=== PATIENT | male | born 1960 | race Caucasian/White ===

== ENCOUNTER 2025-04-30 12:49 | Inpatient (IN) | payer OTHER, SELFPAY ==
[2025-04-30] VITALS (17 sets, daily range): BP systolic 105–214; BP diastolic 54–133; PULSE 71–104; RESP 10–19; TEMP 36.1–37.3; O2SAT 96–100; BMI 36.7; BMI 38.4
--- NOTE | 2025-04-30 13:10 | EKG12_ITS ---
Test Reason : CP Blood Pressure : */* mmHG Vent. Rate : 104 BPM Atrial Rate : 104 BPM P-R Int : 152 ms QRS Dur : 102 ms QT Int : 364 ms P-R-T Axes : 57 10 58 degrees QTcB Int : 478 ms Critical Test Result: STEMI Sinus tachycardia with frequent Premature ventricular complexes in a pattern of bigeminy ST elevation consider inferior injury or acute infarct ACUTE MD / STEMI Consider right ventricular involvement in acute inferior infarct Abnormal ECG When compared with ECG of 23-Mar-2012 15:11, Premature ventricular complexes are now Present ST elevation now present in Inferior leads ST now depressed in Anterolateral leads Confirmed by MICHAEL SAVAGE ([id number]), food editor TENZIN URBINA ([id number]) on 05/02/2025 1:57:34 PM Referred By: Michael Savage Confirmed By: MICHAEL SAVAGE
[2025-04-30 13:27] LABS: Hematocrit 46.0 % (40-54); Hemoglobin 15.7 g/dL (13.0-16.5); Immature Granulocytes Count 0.060 X10^3/uL (0.0-0.0); Mean Corp Hgb Conc 34.1 g/dL (32-36); Mean Corpuscular Volume 85.3 fL (80-94); Mean Platelet Vol. 9.5 fl (6.2-12.0); NRBC Flagged by Analyzer 0 % (0-5); Platelet Count 242 K/mm3 (150-450); RBC Distribution Width CV 13.9 % (11.6-14.6); RBC Distribution Width SD 42.8 fl (35.1-43.9); Red Blood Count 5.39 M/mm3 (4.6-6.2); White Blood Count 12.4 K/mm3 (4.4-11.0)
--- NOTE | 2025-04-30 13:28 | ED.VIS.CHEST ---
HPI History of Present Illness Chief Complaint: Chest Pain Detail of Chief Complaint: Heartburn/indigestion and shortness of breath Informant: patient Onset/Context/Timing Onset: - (2 to 3 weeks ago with exertion and last evening at rest) Activity at onset: sudden Timing: Continuous Quality: Positive for Burning and Indigestion Location: Substernal Current Severity: Mild Maximum Severity: Moderate Worsened By: Exertion (Worse walking up the incline) Relieved By: Nothing Associated Symptoms: Positive for Dyspnea and Lightheadedness; Negative for Nausea, Vomiting, Diaphoresis, Cough, Fever, Acid Reflux or Palpitations Narrative Narrative: Patient is a 64-year-old male with no past medical history on no medication who presents because of indigestion shortness of breath and pain that radiate through to his back. 2 to 3 weeks ago while moving logs he had heartburn indigestion substernal with difficulty breathing. Symptoms resolved after he stopped. Last evening he had basal crackers. He believes this is the cause of his indigestion. Apparently he is having difficulty with breathing and had difficulty sleeping last evening. He still complain of retrosternal indigestion radiating through to his back. Does not radiate anywhere else. He denies history of hiatal hernia, reflux or peptic ulcer disease. [place] black or maroon-colored stool. He has no history of VTE or any risk factors. He denies headache, visual, ocular auditory symptoms. Recent Illness/Hospitalization: No CVD Risk Factors: Negative for Hypertension, Diabetes, Hypercholesterolemia, Family History 1' </=55 or Smoking PE Risk Factors: Negative for Recent Travel/Surgery, Recent Immobilization, Prior DVT or PE, Cancer or OCP + Smoking + >/=35 TAD Risk Factors: Negative for Marfan's Syndrome, Hypertension or Family History PFSH PFSH Medical History no medical history no medical history Home Medications ?Medication ?Instructions ?Recorded ?Last Taken ?Type NK 04/30/25 Unknown History Allergy/AdvReac Type Severity Reaction Status Date / Time No Known Allergies Allergy Verified 04/30/25 12:51 Family History no significant family his Surgical History no surgical history Social History (Updated 04/30/25 @ 13:[address] David Keene MD) household members: spouse Smoking Status: Never smoker ROS ROS ED Constitutional Constitutional ED: Denies chills, fever(s), subjective or sweats Eyes Eyes: Reports none Cardiovascular Cardiovascular: Reports as per HPI and chest pain; Denies orthopnea or paroxysmal nocturnal dyspnea Respiratory/Chest Respiratory/Chest: Reports dyspnea on exertion; Denies cough, dyspnea, orthopnea or paroxysmal nocturnal dyspnea Gastrointestinal Gastrointestinal: Denies abdominal pain, melena, nausea or vomiting Musculoskeletal Musculoskeletal: Reports back pain; Denies arthralgias or myalgias Integumentary Denies rash Neurologic Neurologic: Denies headache(s) Hematologic/Lymphatic Hematologic/Lymphatic: Denies easy bleeding or easy bruising Allergic/Immunologic Allergic/Immunologic ED: Denies mouth swelling or tongue swelling EXAM Physical Exam Const Vital Signs: 04/30/25 12:50 04/30/25 13:21 Temperature 97 F L Temperature Source Temporal Pulse Rate 88 Respiratory Rate 16 Blood Pressure 214/107 H Blood Pressure Mean 142 Pulse Ox 100 Oxygen Delivery Method Room Air Room Air Positive well nourished and well developed Constitutional Narrative: Blood pressure is elevated 214/107. BMI is elevated at 36.7. General Appearance ED: well developed HEENT Reports moist mucous membranes normocephalic and atraumatic Eyes PERRL and EOMs intact bilaterally General Eye ED: Negative for pale conjunctiva or scleral icterus Neck no lymphadenopathy, supple and no JVD Chest Wall inspection of chest normal and palpation of chest normal Resp normal respiratory effort and clear to auscultation bilaterally Cardio regular rate, S1 normal heart sound, S2 normal heart sound and no murmurs; Negative for regular rhythm Peripheral Pulses: pulses 2+ throughout GI normal to inspection, nondistended, normoactive bowel sounds, soft to palpation, non-tender and non-distended; Negative for hepatosplenomegaly or no masses Back/Spine no CVA tenderness Extremity normal to inspection General Extremety ED: Negative for edema or pulses abnormal General Extremity: Negative for edema or pulses abnormal Neuro oriented x3 and CN's II-XII intact bilaterally Sensorium / Orientation: awake and alert Psych mental status grossly normal Skin no rashes or lesions noted and no wounds MDM MDM MDM Narrative Medical decision making narrative: Twelve-lead EKG reveals bigeminy. He has ST elevation in lead III and aVF and some mild depression in V2 and V3. This is unchanged from 2012. Concerned this may represent a STEMI. EKG was sent to Dr. Elliott. Since he is still having symptoms he was taken to the [facility]. Concerned he may have had an ID a couple of weeks ago. He states this is not a STEMI. Patient received aspirin in the emergency department. He was not given Brilinta or heparin. Dr. Russell said he can give him heparin or Brilinta If Needed Pending images. History & Record Review Discussion w/independent historian: Significant other Additional record(s) reviewed:: No prior records EKG Initial EKG: Attestation: I personally reviewed and interpreted this EKG as follows: Interpretation: Sinus Rhythm (ST elevation 3 aVF with depression in V2 and V3. There is a Q wave in aVF. He has a bundle branch parents noted on the premature beats.) Management Discussion w/another healthcare provider: Hospitalist (Dr. Anaid Zavala was informed that cardiology has taken patient in the [facility].) and Applied Researcher (Dr. Elliott) Critical Care Time Critical Care Time: Yes Critical care time (excluding procedures): 30-74 minutes (10), Including time spent: (History, physical, documentation, interpretation EKG, discussion with hospitalist and forging press operator), Discussing w/Patient &/or Family/Welding Machine Feeder, Discussing w/Consultants and Arranging Admission or Transfer Discharge Plan Triage Chief Complaint: Chest Pain ED Provider: David Keene Dx/Rx/DC Orders Clinical Impression: ACS (acute coronary syndrome), Hypertensive urgency Prescriptions: No Action NK Primary Care Provider: Care Physician,No Primary Referrals: Care Physician,No Primary [Primary Care Provider] - Print Language: Yi Disposition Disposition: Acute Care Hospital [facility]
[2025-04-30 13:36] LABS: Prothrombin Time (Protime)PT. 15.1 SECONDS (11.7-14.9)
[2025-04-30 13:37] LABS: Partial Thromboplast Time 30.2 Seconds (24.1-36.2)
--- NOTE | 2025-04-30 13:46 | ECHOL_ITS ---
Reason For Study Reason For Study: CHEST PAIN Procedure This was a limited 2D transthoracic echocardiogram. Exam performed in clinical genetics laboratory chief. Left Ventricle Normal left ventricle. The estimated ejection fraction is 65???70 %. Right Ventricle Normal right ventricle. Atria Normal left atrium. Mitral Valve The mitral valve is structurally normal. No prolapse or stenosis seen. MMode/2D Measurements & Calculations LVAd ap4: 29.4 cm2 SV(MOD-sp4): 61.8 ml SV(sp4-el): 64.1 ml LVLd ap4: 8.2 cm SI(MOD-sp4): 26.7 ml/m2 EDV(MOD-sp4): 88.5 ml EDV(sp4-el): 89.4 ml LVAs ap4: 13.2 cm2 LVLs ap4: 5.8 cm ESV(MOD-sp4): 26.7 ml ESV(sp4-el): 25.3 ml EF(MOD-sp4): 69.9 % EF(sp4-el): 71.7 % ECHO/Echo, Limited Study Interpretation Summary The estimated ejection fraction is 65???70 %. Limited transthoracic echocardiogram with inferior hypokinesia. No prior echocardiogram to compare. Ordering Physician: Samir Hanna Referring Physician: Hilario Elliott Performed By: Ofelia Page RCS
[2025-04-30] MEDS: Heparin Injection (Vial) 5,000 UNIT/ML VIAL 5000 UNIT IV (13:53)
[2025-04-30 14:10] LABS: Anion Gap 14 (5-15); BUN 12 mg/dL (4-19); BUN/Creat Ratio 13.9 RATIO (10-20); Calcium,Total 9.5 mg/dL (7.6-11.0); Carbon Dioxide 22.3 mmol/L (21.0-32.0); Chloride 104 mmol/L (98-108); Estimated Creatinine Clearance 108.25 ml/min (50-250); Glucose 171 mg/dL (70-99); Potassium 3.6 mmol/L (3.3-5.1)
[2025-04-30 14:15] LABS: Troponin T High Sensitivity 189 ng/L (<=22)
[2025-04-30 15:04] LABS: ACT Activated Clotting Time 360 sec (74-137)
[2025-04-30 15:04] LABS: ACT Activated Clotting Time 205 sec (74-137)
--- NOTE | 2025-04-30 15:25 | PCI.CARDCATH ---
PCI Cardiac Cath Report PCI Report: PCI cardiac cath report Patient with acute coronary syndrome with change in the EKG in the inferior initially does not show ST elevation subsequently there is some ST elevation With ventricular bigeminy. 1. Moderate sedation 2. Selective left coronary angiography 3. Selective right coronary angiography 4. Successful PCI of the culprit lesion, occluded proximal RCA with thrombectomy, followed by primary stenting using 4.5 x 30 mm drug-eluting stent to the proximal RCA., Up to 14 KRISTY. And improvement from FER 0 to FER-3 flow. 5. Selective right common femoral artery angiography and placement of Perclose 2 close right common femoral artery arteriotomy site 6. Placement of TR band to close the right radial artery arteriotomy site. Preprocedure diagnosis; 64-year-old patient seen at the ED at [facility] complaining of symptoms of ongoing epigastric and lower chest pain Patient thought this is acid reflux and came to the ED Where an EKG was abnormal with change in the inferior lead with already Q wave noted in the inferior lead with ventricular bigeminy on the EKG and right bundle branch block. He continued to have discomfort in the lower chest. His blood pressure was significantly elevated in the ED. As per history from the the patient was not following with any medical providers. She does not have any prior cardiac history. Consent; Emergency consent was obtained to perform emergency cardiac catheterization with possible PCI of the culprit lesion likely in this case will be proximal RCA. Diagnostic equipment and interventional equipment in the [facility]; 1. 6 Macedonian sheath placed in the right common femoral artery 2. 6 Macedonian sheath placed in the right radial artery. 3. 5 Macedonian JL 3.5 diagnostic catheter 4. 6 Macedonian JR4 guide catheter 5. GuideLiner 6 Macedonian 6. Claude thrombectomy catheter 7. 0.014 180 cm run-through extra floppy straight guide wire 8. 4.5 x 30 mm drug-eluting stent Stevie frontier XIAO Medication used in the Cad [facility]; 1. Patient was given Brilinta 180 mg 2. Patient was given aspirin 324 in the ED 3. Heparin With ACT level acceptable above 300 4. Integrilin 2 boluses with plan of Integrilin infusion Initial blood pressure was significant elevated After sedation and successful PCI the blood pressure was low requiring IV fluid Maintain a blood pressure of 127 mmHg/systolic blood pressure 5. Intracoronary/IC nitroglycerin 100 mcg. 6. IV fluid normal saline. Procedure in detail. Patient brought as an emergency from the ED Right radial artery and right groin prepped and draped in the usual sterile fashion Initially proceed from the right radial artery and a 6 Macedonian sheath placed in the right radial artery. However it was difficult to maintain the guide catheter which is a 6 Macedonian JR4 guide therefore we proceeded with access from the right common femoral artery And we were able to engage the RCA. We proceeded with the diagnostic catheter using 5 Macedonian JL 3 5 advancing Sherwood multiple views of left calcium obtained Following this identified the culprit is occluded proximal RCA at there was collateral from the left coronary artery to the distal RCA which is a large vessel Therefore we will proceed with the guide catheter from the right coronary ostium Which clearly demonstrated occluded proximal RCA. Patient was very critical with a large proximal RCA occlusion and a large thrombus burden. Therefore we will proceed with thrombectomy catheter and the small thrombus was retrieved Then we will proceed with a guide liner 6 Macedonian guide liner Will proceed with a run-through wire crossed the lesion in the proximal RCA Patient was very unstable and a long pause with sinus bradycardia was noted on the process improvement specialist Therefore he was given atropine. And then we will proceed with primary stenting using 4.5 x 30 mm drug-eluting stent Stevie frontier. And achieve excellent result with reduction of stenosis from 100-0 and FER 0 to FER-3 flow patient stable His blood pressure was low. GuideLiner was removed. Patient was given boluses of IV fluid and maintained on IV fluid normal saline. Blood pressure started to improve he does not have any active chest pain and his heart rhythm initially showed sinus bradycardia and improved subsequently. Coronary angiography; 1. Left main is normal angiographically bifurcating into LAD and left circumflex 2. Mid LAD had significant atherosclerosis of around 70%. Mid Also involving ostium of a large diagonal branch of around 90%. LAD does not reach all the way to the apex 2. Diagonal branch ostial 90% 3. Left circumflex proximally had nonobstructive screws of around 40%. 5. RCA occluded proximally with successful PCI as described. Conclusion recommendations; 64-year-old patient with ongoing symptoms of chest pain and lower epigastric discomfort which ongoing for last couple of days noted mainly on exertion and at rest. Brought into ED where a diagnosis of inferior MO was noted he had initially a Q wave noted in the inferior lead with ST-T change in ventricular bigeminy Subsequently ST elevation was demonstrated in the inferior lead. Patient underwent emergency cardiac catheterization which provided diagnostic for the left coronary system showing mid LAD lesion. With well collateralization from the left coronary system to the RCA distal RCA Therefore we proceed with interventional plan to the RCA. Successful PCI of the proximal RCA using drug-eluting stent 4.5 x 30 mm Pearl frontier. Patient was given heparin aspirin Brilinta and Integrilin in the Cad [facility] in addition to blood pressure control. Recommendations; 1. To continue on dual antiplatelet therapy with Brilinta 90 mg twice daily in addition to low-dose aspirin This will be for 1 year and low-dose aspirin indefinitely 2. High-dose statin atorvastatin 80 mg. 3. Echocardiogram to evaluate and assess LV function 4. Possible BRISA inhibitor low-dose as tolerated by the blood pressure. 5. Echocardiogram to assess LV function 6. Patient will be scheduled for cardiac rehab post PCI. Elective PCI of the LAD/mid LAD. Selective right common femoral artery endograft obtained and the Perclose used to close the right common femoral artery arteriotomy site And a TR band used to close the right radial artery arteriotomy site There is no immediate complication in the Cad Drafter Total amount of blood loss is 10 mL 7. Patient to follow-up with [facility] cardiology team. Hilario Elliott MD,[facility] negative assembler
--- NOTE | 2025-04-30 15:30 | EKG12_ITS ---
Test Reason : AM EKG Blood Pressure : */* mmHG Vent. Rate : 73 BPM Atrial Rate : 73 BPM P-R Int : 148 ms QRS Dur : 94 ms QT Int : 436 ms P-R-T Axes : 43 -35 42 degrees QTcB Int : 480 ms Normal sinus rhythm Left axis deviation Minimal voltage criteria for LVH, may be normal variant ( R in aVL ) Inferior infarct , age undetermined Abnormal ECG When compared with ECG of 30-Apr-2025 13:03, MANUAL COMPARISON REQUIRED DATA IS UNCONFIRMED Confirmed by MICHAEL SAVAGE ([id number]), food expeditor CAT SALGADO ([id number]) on 05/01/2025 1:10:21 PM Referred By: Michael Savage Confirmed By: MICHAEL SAVAGE
--- NOTE | 2025-04-30 15:34 | CM.ED ---
Social Work Reason for visit: STEMI alert SW met with patients while patient was receiving care. was tearful, emotional support provided. No further needs identified at this time. Belinda Morejon, TRANSPORTER RADIOLOGY, LAB TECHNICIAN
--- NOTE | 2025-04-30 15:45 | CHAPLAIN ---
Type of Pastoral Visit ___ Initial Visit ___ Follow-up Visit ___ On-call Visit ___ General Patient Visit ___ Spiritual Assessment ___ Family Conference ___ Bereavement _x__ Rapid Response ___ Code Blue ___ Other (describe below) Pastoral Care Referral From ___ Patient ___ Family ___ Nurse ___ Physician ___ Preassembler Printed Circuit Board ___ Ophthalmic Medical Technologist _x__ Other (describe below) Sacrament/Intervention _x__ Active listening ___ Anointing ___ Moravian ___ Bereavement ___ Communion _x__ Esther exploration ___ _x__ Life review _x__ Prayer ___ Reconciliation ___ Sacrament of Sick _x__ Supportive presence ___ Wedding ___ Other (describe below) Pastoral Comments responded to a stemi alert for this patient in the ED; patient is being evaluated for a heart cath; spouse is in the room and is offered support and assistance to the waiting room of the Insurance Appraiser; greeted patient when it was a moment before transfer; offered to be in prayer and support; sat with the spouse in waiting area and offered a prayer at permission; spouse and pt are active anglican members and acknowledge the presence and intervention of the Lord; spouse talks about pt's reluctance to see a doctor and that this will obviously change what the future holds; esther affirmation and physical presence given; gave the spouse time to make phone calls; returned later to the waiting area and found that family members and friends had gathered; updates given on procedures; conversation among the family to give support; offered to follow up again with the patient tomorrow as he is being admitted after procedure
[2025-04-30] MEDS: 0.9% Normal Saline (1000mL) 1,000 ML 150 ML IV (16:01)
--- NOTE | 2025-04-30 16:21 | ECHOD_ITS ---
Reason For Study Reason For Study: CHEST PAIN Procedure This was a 2D Doppler, Color Flow transthoracic echocardiogram. Myocardial strain analysis was performed in this exam to aid in the assessment of cardiac function. Exam performed portable in ICU/CCU. Left Ventricle Normal LV size. The estimated ejection fraction is 60 %. Stage 1 diastolic dysfunction. Mild hypokensis of the inferior wall. Right Ventricle Normal RV size. Normal systolic function. Atria Normal left atrium. Normal right atrium. Mitral Valve The mitral valve is structurally normal. No prolapse or stenosis seen. Mild (1+) mitral valve insufficiency. Tricuspid Valve Normal tricuspid valve. Trivial tricuspid valve insufficiency. Pulmonary artery systolic pressure is 20 mmHg. Aortic Valve Trisinus/trileaflet aortic valve. Mild focal aortic valve thickening. There is no aortic stenosis. Pulmonic Valve Normal pulmonic valve. Trivial pulmonic valve insufficiency. Great Vessels Normal sized aortic root. Pericardium/Pleural No pericardial effusion. MMode/2D Measurements & Calculations LVIDd: 4.8 cm IVSd: 1.1 cm LVOT diam: 2.2 cm LVIDs: 3.3 cm LVPWd: 1.0 cm LVOT area: 3.8 cm2 RVDd: 3.7 cm FS: 32.2 % asc Aorta Diam: 3.6 cm LAV(MOD-bp): 48.0 ml LVAd ap4: 27.7 cm2 LAV(MOD-bp) Indexed: 20.8 ml/m2 LVLd ap4: 8.2 cm LAV(MOD-sp2): 59.1 ml EDV(MOD-sp4): 76.3 ml LAV(MOD-sp4): 40.2 ml EDV(sp4-el): 79.3 ml LVAs ap4: 14.6 cm2 LVLs ap4: 6.6 cm ESV(MOD-sp4): 27.1 ml ESV(sp4-el): 27.6 ml EF(MOD-sp4): 64.5 % EF(sp4-el): 65.2 % LVAd ap2: 23.1 cm2 SV(MOD-sp4): 49.2 ml SV(MOD-sp2): 30.5 ml LVLd ap2: 8.2 cm SI(MOD-sp4): 21.3 ml/m2 SI(MOD-sp2): 13.2 ml/m2 EDV(MOD-sp2): 55.5 ml EDV(sp2-el): 55.1 ml LVAs ap2: 14.3 cm2 LVLs ap2: 7.2 cm ESV(MOD-sp2): 25.0 ml ESV(sp2-el): 24.3 ml EF(MOD-sp2): 55.0 % SV(sp4-el): 51.7 ml Ao sinus diam: 3.[address] Junction: 3.1 cm LA dimension(2D): 4.2 cm LA A4 area: 15.8 cm2 RA A4 area: 12.6 cm2 TAPSE: 1.7 cm Time Measurements MV dec time: 0.19 sec Doppler Measurements & Calculations MV E max virgilio: 89.5 cm/sec Lat Peak E' Virgilio: 12.3 cm/sec Med Peak E' Virgilio: 10.4 cm/sec MV A max virgilio: 79.3 cm/sec E/E' lat: 7.3 E/E' med: 8.6 MV E/A: 1.1 MV dec slope: 474.8 cm/sec2 Ao V2 max: 158.9 cm/sec LV V1 max: 130.0 cm/sec Ao max P.1 mmHg LV V1 max P.8 mmHg Ao V2 mean: 107.4 cm/sec LV V1 mean P.8 mmHg Ao mean P.4 mmHg LV V1 mean: 107.5 cm/sec Ao V2 VTI: 30.7 cm LV V1 VTI: 24.2 cm AV (velocity ratio): 0.79 LUIZ(I,D): 3.0 cm2 LUIZ(V,D): 3.1 cm2 SV(LVOT): 93.1 ml PA V2 max: 136.0 cm/sec TR max virgilio: 206.8 cm/sec TR max P.1 mmHg ECHO/Echo Complete Interpretation Summary The estimated ejection fraction is 60 %. Mild hypokensis of the inferior wall. Stage 1 diastolic dysfunction. Mild (1+) mitral valve insufficiency. No previous echo to compare. Ordering Physician: Anaid Zavala Referring Physician: Hilario Elliott Performed By: Shandra Cosme RDCS
--- NOTE | 2025-04-30 16:21 | PCM.HP.STD ---
HPI - General General Date of Admission: 04/30/25 Date of Service: 04/30/25 Chief Complaint: Indigestion HPI Narrative ALBERT NOLASCO, is a 64-year-old male with no known past medical history presented [facility] ED 04/30/2025 due to heartburn/indigestion and shortness of breath as well as pain rating to his back. He initially had this 2 to 3 weeks ago while he was moving logs and noted the heartburn and indigestion and substernal area with difficulty breathing but symptoms resolved after he stopped. Last night was having difficulty breathing and difficulty sleeping and complained of the retrosternal indigestion radiating to his back ultimately prompting patient to come to the ED. Initially patient was STEMI alert however cardiology evaluated did not think that this was an acute STEMI though patient did have EKG changes. Patient also in bigeminy and was taken to the Field Artillery Crewmember given all of the above and his continued symptoms. On presentation temp 97, heart rate 88 and blood pressure initially 214/107, respiratory rate 16 pulse ox 100% on room air. CBC with a white blood cell count of 12 and BMP only notable for glucose of 171, initial troponin 189. Patient taken straight to the Field Artillery Crewmember. Patient evaluated post Field Artillery Crewmember at bedside. Patient reports history as above, said he also noticed occasional dry cough/clearing throat over the past couple of weeks but does not feel the need to do that now, presently not having of the indigestion or chest pain, just feels somewhat uncomfortable overall due to laying in the bed, has not been able to get up yet, not presently feeling shortness of breath [facility] Medical History (Updated 04/30/25 @ 17:09 by Mile Thompson) Atherosclerotic heart disease of [place] coronary artery without angina pectoris Ureteral stent present Medical History no medical history Home Medications ?Medication ?Instructions ?Recorded ?Last Taken ?Type NK 04/30/25 Unknown History Allergy/AdvReac Type Severity Reaction Status Date / Time No Known Allergies Allergy Verified 04/30/25 12:51 Family History no significant family his Surgical History (Updated 04/30/25 @ 17:08 by Mile Thompson) History of appendectomy Stented coronary artery (04/30/25) Surgical History no surgical history Social History (Updated 04/30/25 @ 13:[address] David Keene MD) household members: spouse Smoking Status: Never smoker ROS ROS Narrative General: Denies fever/chills HENT: denies stuffy nose, denies sore throat EYES: Denies changes in vision Resp: Had been having a little bit of a cough/clearing throat, not at this time Cardiac: Denies chest pain GI: Denies abdominal pain, denies changes in bowel, denies nausea/vomiting : Denies changes in urination Extremity: Denies swelling MSK: Denies weakness, does feels a little bit uncomfortable overall right now Neuro: Denies any numbness/tingling, does have some tremors in his hands which are usually there but worse right now than usual Heme: Denies any bleeding or bruising Skin: Denies rashes Psychiatric: No complaints voiced Vital Signs Vital Signs Vital Signs: 04/30/25 12:50 04/30/25 13:21 04/30/25 13:49 Temperature 97 F L Temperature Source Temporal Pulse Rate 88 Respiratory Rate 16 Respiratory Effort Normal Non-Labored Blood Pressure 214/107 H Blood Pressure Mean 142 Pulse Ox 100 Oxygen Delivery Method Room Air Room Air 04/30/25 13:50 Temperature 97 F L Temperature Source Pulse Rate 104 H Respiratory Rate 15 Respiratory Effort Blood Pressure 155/133 H Blood Pressure Mean 140 Pulse Ox 97 Oxygen Delivery Method Weight Weight: 118 kg Body Mass Index (BMI) 38.4 Physical Exam Narrative General: Alert, oriented HEENT: Atraumatic, normocephalic Eyes: Anicteric, normal conjunctiva, extraocular movements grossly intact Neck: Supple Respiratory: Clear to auscultation bilaterally, normal respiratory effort Cardiovascular: Regular rate and rhythm GI: Soft, nontender, nondistended Extremities: No edema Musculoskeletal: Moving all extremities Neuro: No overt focal neurological deficits, does have some tremor and some outstretched hands Skin: No rashes appreciated Psych: Cooperative Results Lab / Micro Data 04/30/25 13:10 04/30/25 13:10 Labs: Laboratory Results - last 24 hr 04/30/25 13:04: Activated Clotting Time 205 H 04/30/25 13:10: WBC 12.4 H, RBC 5.39, Hgb 15.7, Hct 46.0, MCV 85.3, MCH 29.1, MCHC 34.1, RDW Std Deviation 42.8, RDW Coeff of Sonia 13.9, Plt Count 242, MPV 9.5, Immature Gran % (Auto) 0.500, Neut % (Auto) 64.3, Lymph % (Auto) 26.6, [place] % (Auto) 7.4, Eos % (Auto) 0.6, Baso % (Auto) 0.6, Absolute Neuts (auto) 8.0 H, Absolute Lymphs (auto) 3.31, Nucleated RBC % 0, PT 15.1 H, INR 1.2, APTT 30.2, Sodium 140, Potassium 3.6, Chloride 104, Carbon Dioxide 22.3, Anion Gap 14, BUN 12, Creatinine 0.88, Estim Creat Clear Calc 108.25, Est GFR (MDRD) Non-Af 96, BUN/Creatinine Ratio 13.9, Glucose 171 H, Calcium 9.5, Troponin T High Sens 189 H* 04/30/25 13:48: Activated Clotting Time 360 H Assessment & Plan Assessment/Plan (1) ACS (acute coronary syndrome): (2) Stented coronary artery: PLAN: Plan # NSTEMI type I - EKG with changes initial troponin of 189 that is up trended to 1482 - Taken emergently to Field Artillery Crewmember and received stent to RCA -Patient now pain-free - Aspirin, statin, Brilinta - Cardiology following - Echo limited at bedside in the Field Artillery Crewmember with EF 65-70 and inferior hypokinesis, formal echo ordered - Will start BRISA - Lipid panel and A1c in the a.m. #DVT ppx: SCDs Anaid Zavala MD Charges/Coding Visit Charges Inpatient E&M: 90735 Init Hosp L1
[2025-04-30 18:19] LABS: Troponin T High Sens 2 HR 1277 ng/L (<=22)
[2025-04-30] MEDS: EPTIFIBATIDE 75 MG/100 ML VIAL 19 MG CONT INF (20:32)
[2025-04-30 20:39] LABS: Troponin T High Sens 4 HR 1482 ng/L (<=22)
[2025-05-01] VITALS (17 sets, daily range): BP systolic 93–159; BP diastolic 56–107; PULSE 68–91; RESP 14–22; TEMP 36.6–37.5; O2SAT 95–99; BMI 38.5
[2025-05-01] MEDS: EPTIFIBATIDE 75 MG/100 ML VIAL 19 MG CONT INF (01:29)
[2025-05-01 04:23] LABS: Hematocrit 38.5 % (40-54); Hemoglobin 13.0 g/dL (13.0-16.5); Mean Corp Hgb Conc 33.8 g/dL (32-36); Mean Corpuscular Volume 86.1 fL (80-94); Mean Platelet Vol. 9.7 fl (6.2-12.0); Platelet Count 224 K/mm3 (150-450); RBC Distribution Width CV 14.1 % (11.6-14.6); RBC Distribution Width SD 44.4 fl (35.1-43.9); Red Blood Count 4.47 M/mm3 (4.6-6.2); White Blood Count 14.6 K/mm3 (4.4-11.0)
[2025-05-01 04:25] LABS: Scan Indicated on CBC? Y/N NO
[2025-05-01 04:51] LABS: AST(SGOT) 73 U/L (<=37); Alanine Aminotransfer ALT/SGPT 24 U/L (<=46); Albumin, Serum 3.9 g/dL (3.4-4.8); Alkaline Phosphatase 64 U/L (40-129); Anion Gap 10 (5-15); BUN 11 mg/dL (4-19); BUN/Creat Ratio 12.8 RATIO (10-20); Calcium,Total 8.4 mg/dL (7.6-11.0); Carbon Dioxide 21.4 mmol/L (21.0-32.0); Chloride 109 mmol/L (98-108); Estimated Creatinine Clearance 108.73 ml/min (50-250); Globulin 2.4 g/dL (2.2-4.2); Glucose 116 mg/dL (70-99); Potassium 3.6 mmol/L (3.3-5.1)
[2025-05-01 06:59] LABS: Cholesterol 143 mg/dL (<=200); Low Density Lipoprotein Calc. 73 mg/dL; Triglycerides 98 mg/dL; Very Low Density Lipoprotein 20 mg/dL (5-40); cholesterol:hdl ratio screen 2.81
--- NOTE | 2025-05-01 07:14 | PN.HOSP_ITS ---
Reason for Visit Chief Complaint: Indigestion Subjective Subjective Patient was admitted yesterday after presenting to the emergency department with heartburn and indigestion with concomitant shortness of breath that radiated to his back. STEMI alert was initially called however cardiology did not think it was a true STEMI but he was taken to the Matching Machine Operator due to her ongoing symptoms. Initial troponin was noted to be 189. XIAO to proximal RCA x 1 was performed. This morning the patient reports that he is feeling overall quite well. Denies any complaints at this time. No chest pain through the night. No arrhythmia. We did discuss that as long as he remains stable over the next 24 hours probable discharge home tomorrow morning. We discussed the importance of ongoing dual antiplatelet therapy until cardiology tells him to discontinue, statin therapy, and we have added medication for blood pressure/goal-directed therapy. Objective Data Objective Data Vital Signs: Vital Signs Temp Pulse Resp BP Pulse Ox O2 Del Method 98.7 F 70 20 H 140/77 H 96 Room Air 05/01/25 04:00 05/01/25 06:00 05/01/25 06:00 05/01/25 06:00 05/01/25 06:00 05/01/25 06:00 Oxygen Delivery Method Room Air Weight: 117.9 kg Body Mass Index (BMI) 38.5 Intake & Output: Intake and Output for Last 24 Hours 04/29/25 04/30/25 05/01/25 23:59 23:59 23:59 Intake Total 167.5 / 167.5 978.53 / 978.53 Output Total 0 / 0 Balance 167.5 / 167.5 978.53 / 978.53 Lab / Micro Data 05/01/25 04:13 05/01/25 04:13 Labs: Laboratory Results - last 24 hr 04/30/25 13:04: Activated Clotting Time 205 H 04/30/25 13:10: WBC 12.4 H, RBC 5.39, Hgb 15.7, Hct 46.0, MCV 85.3, MCH 29.1, MCHC 34.1, RDW Std Deviation 42.8, RDW Coeff of Sonia 13.9, Plt Count 242, MPV 9.5, Immature Gran % (Auto) 0.500, Neut % (Auto) 64.3, Lymph % (Auto) 26.6, [place] % (Auto) 7.4, Eos % (Auto) 0.6, Baso % (Auto) 0.6, Absolute Neuts (auto) 8.0 H, Absolute Lymphs (auto) 3.31, Nucleated RBC % 0, PT 15.1 H, INR 1.2, APTT 30.2, Sodium 140, Potassium 3.6, Chloride 104, Carbon Dioxide 22.3, Anion Gap 14, BUN 12, Creatinine 0.88, Estim Creat Clear Calc 108.25, Est GFR (MDRD) Non-Af 96, BUN/Creatinine Ratio 13.9, Glucose 171 H, Calcium 9.5, Troponin T High Sens 189 H* 04/30/25 13:48: Activated Clotting Time 360 H 04/30/25 17:40: Troponin T Hi Sens 2 Hr 1277 H* 04/30/25 19:50: Troponin T Hi Sens 4Hr 1482 H* 05/01/25 04:13: WBC 14.6 H, RBC 4.47 L, Hgb 13.0, Hct 38.5 L, MCV 86.1, MCH 29.1, MCHC 33.8, RDW Std Deviation 44.4 H, RDW Coeff of Sonia 14.1, Plt Count 224, MPV 9.7, Sodium 141, Potassium 3.6, Chloride 109 H, Carbon Dioxide 21.4, Anion Gap 10, BUN 11, Creatinine 0.87, Estim Creat Clear Calc 108.73, Est GFR (MDRD) Non-Af 96, BUN/Creatinine Ratio 12.8, Glucose 116 H, Hemoglobin A1c 6.2 H, Calcium 8.4, Total Bilirubin 0.76, AST 73 H, ALT 24, Alkaline Phosphatase 64, Total Protein 6.3, Albumin 3.9, Globulin 2.4, Albumin/Globulin Ratio 1.6, Triglycerides 98, Cholesterol 143, LDL Cholesterol, Calc 73, VLDL Cholesterol 20, HDL Cholesterol 51, Cholesterol/HDL Ratio 2.81, TSH 2.510 Radiography Diagnostic Testing: Radiology Impression Echocardiogram 04/30/25 13:46 Interpretation Summary The estimated ejection fraction is 65???70 %. Limited transthoracic echocardiogram with inferior hypokinesia. No prior echocardiogram to compare. Ordering Physician: Samir Hanna Referring Physician: Hilario Elliott Performed By: Ofelia Page RCS Physical Exam Const alert, oriented x3 and well nourished; Negative for average body habitus Constitutional Narrative: Obese, upper middle-aged, white male, sitting up in a chair at the bedside, eating breakfast and watching television, appears comfortable, nontoxic, cooperative HEENT head/scalp atraumatic and moist oral mucous membranes HEENT Narrative: Mallampati 3 Head and Scalp: normocephalic Resp normal respiratory effort, no retractions, no use of accessory muscles and clear to auscultation bilaterally Auscultation: Negative for rales, rhonchi or wheezes Cardio regular rate, regular rhythm, S1 normal heart sound, S2 normal heart sound, no murmurs, no rub, no gallops and no clicks GI normal to inspection, nondistended, normoactive bowel sounds, soft to palpation and non-tender Extremity no clubbing, cyanosis or edema Extremity Narrative: 2+ pedal and radial pulses, post cath site is clean dry and intact Neuro oriented x3, moves all extremities and no focal motor deficits Speech: speech normal Psych affect normal Psych Narrative: Extremely pleasant, grateful for care, interacts appropriately Assessment & Plan Assessment/Plan (1) Atherosclerotic heart disease of [place] coronary artery without angina pectoris: (2) ACS (acute coronary syndrome): (3) Stented coronary artery: PLAN: Plan ACS/NSTEMI type I - EKG changes with the elevated troponin - Emergent cath done on 04/30/2025 with a XIAO to proximal RCA - Patient also noted to have disease in the LAD and elective PCI to the LAD/mid LAD has been recommended to be performed as an outpatient after follow-up - Continue dual antiplatelet therapy for 12 months--> importance of dosing discussed with patient this morning - Continue statin - Continue BRISA inhibitor - Add Coreg 3.125 mg twice daily - Echocardiogram performed and shows an EF of 65 to 70% - No signs of reperfusion arrhythmia and anticipate discharge home in next 24 hours - Cardiology is following-appreciate input - Will make PCU status Essential hypertension - Patient's blood pressure has consistently been elevated to the stage I to stage II hypertensive ranges - Continue lisinopril 10 mg daily - Add carvedilol 3.125 mg twice daily - Overall goal blood pressure should be less than 130/80 Leukocytosis - Suspect reactive related to acute event - Repeat CBC in a.m. Insulin resistance - A1c is 6.2 - Recommend weight loss - No need for current therapy Hyperlipidemia - mild with an LDL of 73 - Continue high intensity of statin for plate atrophic effects as well as lipid control Obesity - BMI 38.4 - Recommend weight loss - Complicates treatment, prognosis, outcomes - Patient may benefit from outpatient polysomnography DVT prophylaxis - continue enoxaparin CODE STATUS Full code was verified with patient this morning and order was placed Charges/Coding Visit Charges Inpatient E&M: 30626 Subs Hosp L2
--- NOTE | 2025-05-01 07:49 | CRPHASE1 ---
Patient Communication Patient Information PHII Cardiac Rehab Discussed with Patient:: Yes Guide to Cardiac Rehab Given to Patient:: Yes Cardiac Rehab Facility Choice List Given to Patient:: Yes Communication to Cardiac Rehab Choice Program [facility] CR PHII:: Communication Given to CR Fuel Cell Assembler:: Hilario Elliott Phase II Cardiac Rehab:: Yes Sessions:: 36 sessions - 3 days/wk, 12 weeks Cardiac Rehabilitation Info Program Information Cardiac Rehabilitation Program Information: Cardiac Rehab The cardiac rehab team at [facility] consists of highly skilled exercise physiologists, nurses, respiratory therapists and physicians working together with you. Our purpose is to help you have a full recovery and achieve the goals you set for yourself. Over the years many of our patients have returned to activities they assumed they would never do again! We can help restore your confidence and motivation to make lifestyle changes that can have a significant impact on your health and quality of life! We can help answer questions and concerns you may have about exercise, lifestyle, medications, diet, stress and anxiety which are common following a hospitalization. WE monitor ECG and vital signs during exercise and discuss your progress with you and report to your physician(s). Cardiac Rehab is proven to help reduce readmissions, improve functional capacity and lower recurrence of problems with your heart. Our Cardiac Rehab program is Certified by the [place] [employer] of Cardio-Vascular and Pulmonary [employer] (AACVPR) and Accredited by the [place] [employer] through our [facility]. You can contact us at . We invite you to call us with your questions or to get started in our program. If you have other questions or concerns be sure to ask your physician/provider during your follow-up visit. WE look forward to seeing you!
--- NOTE | 2025-05-01 07:50 | CRPH1.INSTRU ---
General Education Discussed with Patient CAD and cardiac anatomy and function:: Patient communicates acknowledgment and Needs reinforcement Explanation of diagnoses and procedures:: Patient communicates acknowledgment and Needs reinforcement Sign/Symptoms of [place]:: Patient communicates acknowledgment and Needs reinforcement Antiplatelet therapy: Patient communicates acknowledgment and Needs reinforcement Proper use of NTG-SL: Patient communicates acknowledgment and Needs reinforcement Emergency procedures and activation of EMS: Patient communicates acknowledgment and Needs reinforcement Compliance of all prescribed medications: Patient communicates acknowledgment and Needs reinforcement Dyslipidemia Risk Factors Patient Dyslipidemia Risk Factors Are:: Total Cholesterol, Triglycerides, HDL and LDL Recommendations Recommendations Include:: Lipid profile not available Response Code Dyslipidemia Response Code:: Patient communicates acknowledgment and Needs reinforcement Overweight/Obesity Risk Factors Patient Overweight/Obesity Risk Factors Are:: Obesity - > or = 30 Recommendations Recommendations Include:: Weight loss of 5-10%, Reduced calorie diet and Exercise 5-7 times/week Response Code Overweight/Obesity:: Patient communicates acknowledgment and Needs reinforcement Hypertension Recommendations Recommendations Include:: Maintain BP <130/85 and Decrease/maintain normal body weight Response Code Hypertension:: Patient communicates acknowledgment and Needs reinforcement Metabolic Syndrome Risk Factors Patient Metabolic Syndrome Risk Factors Are [3 of 5]:: Fasting blood sugar > 100 mg/dL and Waist circumference > 35 [female] or 40 [male] Recommendations Recommendations Include:: Reinforce compliance to risk factor modifications and Encouraged follow-up with Primary Care Physician Response Code Metabolic Syndrome Response Code:: Patient communicates acknowledgment and Needs reinforcement Sedentary Risk Factors Patient Sedentary Risk Factors Are:: Lack of regular exercise Recommendations Recommendations Include:: Aerobic exercise 5-7 times/week for 20-30 minutes continuously, Benefits of regular exercise, Discussed home walking program and Monitored Outpatient Cardiac Rehab Response Code Sedentary Response Code:: Patient communicates acknowledgment and Needs reinforcement Stress Risk Factors Patient Stress Risk Factors Are:: Patient denies stress as a risk factor Recommendations Recommendations Include:: Identification of stressors, and assessment of coping skills and Stress management techniques Response Code Stress Response Code:: Patient communicates acknowledgment and Needs reinforcement
[2025-05-01] MEDS: TICAGRELOR 90 MG TABLET PO ×2 (08:27→21:32)
[2025-05-01] MEDS: Aspirin E.C. 81 MG Tablet PO (08:27)
[2025-05-01] MEDS: 0.9% Saline Lock 10 ML Syringe IV (08:28)
--- NOTE | 2025-05-01 12:58 | PN.CARD_ITS ---
Subjective Subjective I saw the patient at bedside today he is feeling comfortable does not have any active chest pain. Objective Data Vital Signs: Vital Signs Temp Pulse Resp BP Pulse Ox O2 Del Method 99.3 F H 91 19 H 139/72 H 97 Room Air 05/01/25 09:00 05/01/25 11:37 05/01/25 09:00 05/01/25 09:00 05/01/25 09:00 05/01/25 09:00 Oxygen Delivery Method Room Air Weight: 259 lb 14.8 oz Body Mass Index (BMI) 38.5 Intake & Output: Intake and Output for Last 24 Hours 04/29/25 04/30/25 05/01/25 23:59 23:59 23:59 Intake Total 167.5 / 167.5 978.53 / 978.53 Output Total 0 / 0 Balance 167.5 / 167.5 978.53 / 978.53 Lab / Micro Data 05/01/25 04:13 05/01/25 04:13 Labs: Laboratory Results - last 24 hr 04/30/25 13:04: Activated Clotting Time 205 H 04/30/25 13:10: WBC 12.4 H, RBC 5.39, Hgb 15.7, Hct 46.0, MCV 85.3, MCH 29.1, MCHC 34.1, RDW Std Deviation 42.8, RDW Coeff of Sonia 13.9, Plt Count 242, MPV 9.5, Immature Gran % (Auto) 0.500, Neut % (Auto) 64.3, Lymph % (Auto) 26.6, [place] % (Auto) 7.4, Eos % (Auto) 0.6, Baso % (Auto) 0.6, Absolute Neuts (auto) 8.0 H, Absolute Lymphs (auto) 3.31, Nucleated RBC % 0, PT 15.1 H, INR 1.2, APTT 30.2, Sodium 140, Potassium 3.6, Chloride 104, Carbon Dioxide 22.3, Anion Gap 14, BUN 12, Creatinine 0.88, Estim Creat Clear Calc 108.25, Est GFR (MDRD) Non-Af 96, BUN/Creatinine Ratio 13.9, Glucose 171 H, Calcium 9.5, Troponin T High Sens 189 H* 04/30/25 13:48: Activated Clotting Time 360 H 04/30/25 17:40: Troponin T Hi Sens 2 Hr 1277 H* 04/30/25 19:50: Troponin T Hi Sens 4Hr 1482 H* 05/01/25 04:13: WBC 14.6 H, RBC 4.47 L, Hgb 13.0, Hct 38.5 L, MCV 86.1, MCH 29.1, MCHC 33.8, RDW Std Deviation 44.4 H, RDW Coeff of Sonia 14.1, Plt Count 224, MPV 9.7, Sodium 141, Potassium 3.6, Chloride 109 H, Carbon Dioxide 21.4, Anion Gap 10, BUN 11, Creatinine 0.87, Estim Creat Clear Calc 108.73, Est GFR (MDRD) Non-Af 96, BUN/Creatinine Ratio 12.8, Glucose 116 H, Hemoglobin A1c 6.2 H, Calcium 8.4, Total Bilirubin 0.76, AST 73 H, ALT 24, Alkaline Phosphatase 64, Total Protein 6.3, Albumin 3.9, Globulin 2.4, Albumin/Globulin Ratio 1.6, Triglycerides 98, Cholesterol 143, LDL Cholesterol, Calc 73, VLDL Cholesterol 20, HDL Cholesterol 51, Cholesterol/HDL Ratio 2.81, TSH 2.510 Cardiology Labs/Tests 04/30/25 13:10: WBC 12.4 H, RBC 5.39, Hgb 15.7, Hct 46.0, MCV 85.3, MCH 29.1, MCHC 34.1, Plt Count 242, MPV 9.5, Immature Gran % (Auto) 0.500, Neut % (Auto) 64.3, Lymph % (Auto) 26.6, [place] % (Auto) 7.4, Eos % (Auto) 0.6, Baso % (Auto) 0.6, Absolute Neuts (auto) 8.0 H, Nucleated RBC % 0, PT 15.1 H, INR 1.2, APTT 30.2, Sodium 140, Potassium 3.6, Chloride 104, Carbon Dioxide 22.3, Anion Gap 14, BUN 12, Creatinine 0.88, Est GFR (MDRD) Non-Af 96, BUN/Creatinine Ratio 13.9, Glucose 171 H, Calcium 9.5 05/01/25 04:13: WBC 14.6 H, RBC 4.47 L, Hgb 13.0, Hct 38.5 L, MCV 86.1, MCH 29.1, MCHC 33.8, Plt Count 224, MPV 9.7, Sodium 141, Potassium 3.6, Chloride 109 H, Carbon Dioxide 21.4, Anion Gap 10, BUN 11, Creatinine 0.87, Est GFR (MDRD) Non-Af 96, BUN/Creatinine Ratio 12.8, Glucose 116 H, Hemoglobin A1c 6.2 H, Calcium 8.4, Total Bilirubin 0.76, Triglycerides 98, Cholesterol 143, VLDL Cholesterol 20, HDL Cholesterol 51, Cholesterol/HDL Ratio 2.81 Rhythm: EKG: ECHO: Stress Test: Cardiac Cath: PCI: CT Surgery: Holter monitor: EPS: PPM: CXR: Chest CT Scan: Radiography Diagnostic Testing: Radiology Impression Echocardiogram 04/30/25 13:46 Interpretation Summary The estimated ejection fraction is 65???70 %. Limited transthoracic echocardiogram with inferior hypokinesia. No prior echocardiogram to compare. Ordering Physician: Samir Hanna Referring Physician: Hilario Elliott Performed By: Ofelia Page RCS Physical Exam Cardio Cardio Narrative: bench jeweler reveals normal sinus Cardiac exam S1-S2 is regular No systolic or diastolic murmur Chest exam is clear to auscultation bilateral Examination lower extremity pedal pulses within normal No lower extremity edema. Assessment & Plan Assessment/Plan (1) ACS (acute coronary syndrome): (2) Stented coronary artery: (3) Atherosclerotic heart disease of [place] coronary artery without angina pectoris: PLAN: Cardiac care plan and recommendations; 64-year-old patient with symptoms of chest pain Has dynamic change in the EKG with evidence of recent inferior [place] And occluded proximal large RCA Underwent successful PCI using drug-eluting stent We used 4.5 x 30 mm resolute Stevie drug-eluting stent and achieve an excellent result Post PCI patient remains stable clinically. Has an echocardiogram which showed LV function preserved ejection fraction of 65 to 70% hyperdynamic left ventricle With inferior hypokinesia No significant valve abnormality Angiographic study revealed left main is normal angiographically bifurcating in the LAD and left circumflex Has a mid lesion in the LAD at the site of ostial lesion of the D1. This is a moderate size vessel does not reach all the way to the apex The RCA was large dominant. Bifurcating into posterolateral and RPDA. Conclusion recommendation patient is stable clinically he will be transferred to the progressive care unit. With the plan of continue on dual antiplatelet therapy with Brilinta 90 mg twice daily in addition to low-dose aspirin. On guideline directed medical therapy with a high-dose statin. Patient will be scheduled for cardiac rehab program, at [facility] If he remains stable he can be discharged home from progressive care unit and to follow-up with the cardiology group here at [facility] I did discuss the findings of the cardiac catheterization in detail with the the patient and the family at bedside Hilario Elliott MD,FACC,[facility] drill punch operator
--- NOTE | 2025-05-01 13:06 | CASEMGMT ---
SHYANNE JERONIMO Assessment: Face to Face with pt for initial transition planning/care coordination assessment. SHYANNE JERONIMO introduced self and role at [facility], pt voices understanding and consents to assessment. Pt is A&O x4 and answers all questions appropriately at this time. Care providers, pharmacy, and demographics verified/updated. Strata: 1 Admitting Dx: ACS PCP: Missy Specialists: DENNIS Preferred Pharmacy: [facility] Insurance: [facility] Prescription Benefit: yes LNOK: Ness, Living Arrangements: Pt lives with in a multi-level home with a few steps to enter. ADLs: I at baseline Transportation: Pt drives self and denies concerns with transportation. DME: Denies HHC/SNF: Denies Hx of. Pt states no concerns with going home at time of dc. Pt states no further concerns/needs. CM to follow. Advised pt to ask CM if any further question/concerns/needs arise, voices understanding. Pt Goal: home Plan: home with family support, follow for safe DC plan. Alexander KIMBLE CM
--- NOTE | 2025-05-01 14:21 | CHAPLAIN ---
Type of Pastoral Visit ___ Initial Visit _x__ Follow-up Visit ___ On-call Visit ___ General Patient Visit ___ Spiritual Assessment ___ Family Conference ___ Bereavement ___ Rapid Response ___ Code Blue ___ Other (describe below) Pastoral Care Referral From _x__ Patient _x__ Family ___ Nurse ___ Physician ___ Sales Representative Cash Registers ___ Inspector Subassembly ___ Other (describe below) Sacrament/Intervention _x__ Active listening ___ Anointing ___ Anabaptist ___ Bereavement ___ Communion _x__ Esther exploration ___ _x__ Life review _x__ Prayer ___ Reconciliation ___ Sacrament of Sick _x__ Supportive presence ___ Wedding ___ Other (describe below) Pastoral Comments patient and family are very pleased with the outcome and expectations for the future of patient; pt and family are people of esther with much support from baptism, family, and friends; much appreciation expressed for care and attention to emotional and spiritual needs; prayer and presence welcomed
--- NOTE | 2025-05-01 14:42 | CASEMGMT ---
Social Work SW spoke with the patient in his room. Patient no concerns with transportation. Patient reported he has a car and still drives. ESTELA Price
[2025-05-02] VITALS (7 sets, daily range): BP systolic 158–180; BP diastolic 89–104; PULSE 75–84; RESP 18; TEMP 36–36.7; O2SAT 95–99; BMI 38.0
[2025-05-02 06:58] LABS: Hematocrit 39.3 % (40-54); Hemoglobin 13.3 g/dL (13.0-16.5); Immature Granulocytes Count 0.060 X10^3/uL (0.0-0.0); Mean Corp Hgb Conc 33.8 g/dL (32-36); Mean Corpuscular Volume 85.8 fL (80-94); Mean Platelet Vol. 9.9 fl (6.2-12.0); NRBC Flagged by Analyzer 0 % (0-5); Platelet Count 195 K/mm3 (150-450); RBC Distribution Width CV 14.3 % (11.6-14.6); RBC Distribution Width SD 44.7 fl (35.1-43.9); Red Blood Count 4.58 M/mm3 (4.6-6.2); White Blood Count 11.2 K/mm3 (4.4-11.0)
[2025-05-02 08:25] LABS: Magnesium 2.3 mg/dL (1.5-2.2)
--- NOTE | 2025-05-02 08:40 | DS.PCM_ITS ---
Providers Date of Admission: 04/30/25 Date of Discharge: 05/02/25 Primary Care Physician: Nichole Primary Care Phys Consultations 04/30/25 16:22 Consult: Cardiology Routine Consulting Provider: Hilario Elliott Reason for Consult: Chest Pain EMERGENT Consult: No MD Notified: Yes Date Notified: 04/30/25 Time Notified: 16:22 Method of Notification: ED Physician Initiated Reason For Visit: ACS Diagnosis Discharge Diagnosis (1) ACS (acute coronary syndrome): Status: Acute Code(s): I24.9 - Acute ischemic heart disease, unspecified (2) Stented coronary artery: Status: Chronic Code(s): Z95.5 - Presence of coronary angioplasty implant and graft (3) Atherosclerotic heart disease of [place] coronary artery without angina pectoris: Status: Chronic Code(s): I25.10 - Atherosclerotic heart disease of [place] coronary artery without angina pectoris Medications at Discharge Home Medications aspirin 81 mg tablet,delayed release 81 mg PO BREAKFAST #0 tabs 05/02/25 atorvastatin 80 mg tablet 80 mg PO QHS #30 tabs 05/02/25 carvedilol 12.5 mg tablet 12.5 mg PO BIDCM #60 tabs 05/02/25 clopidogrel 75 mg tablet (Plavix) 75 mg PO DAILY #30 tabs 05/02/25 lisinopril 20 mg tablet 20 mg PO DAILY #30 tabs 05/02/25 Hospital Course Operations None Procedures 2-D Echocardiogram, Cardiac catheterization and EKG Summary of Care Provided Minutes Spent on Discharge: 38 Hospital Course: Mr. Andrade is a 64-year-old white male who presented to the emergency department [facility] on 05/02/2025 with a chief complaint of ongoing indigestion. He reported that he been having symptoms for 2 to 3 weeks and initially got it when he was moving logs. It was substernal and he had some shortness of breath but symptoms resolved after he stopped doing exertion. Prior to presentation he was having difficulty breathing and sleeping and complained of retrosternal indigestion radiating to his back which ultimately prompted him to present to emergency department. Vital signs on presentation showed temperature of 97, heart rate 88, blood pressure was initially 214/107, respiratory rate 16 and pulse ox was 100% on room air. CBC was overtly unremarkable, BMP was overtly unremarkable other than a nonfasting blood glucose of 171. Initial troponin was 189. EKG showed waxing and waning abnormalities. Initially it was thought to be an acute STEMI however cardiology reviewed the case and did not think it was a STEMI. The patient then went to [facility] so he was taken to [facility] due to ongoing symptoms. During cardiac catheterization he was noted to have 100% occlusion of the RCA at which time a long large drug- eluting stent was placed. He was also noted to have disease in the LAD proximally and mid LAD which has been recommended for staged procedure as an outpatient. He was initially placed on aspirin and Brilinta but due to side effects of Brilinta that he reviewed prior to discharge he wanted to transition to Plavix. This was discussed with cardiology and they loaded him with 300 mg of Plavix and we sent him with 75 mg daily in addition to the aspirin. He was placed on Coreg 12.5 mg and lisinopril 20 mg daily for his blood pressure and started on atorvastatin 80 mg daily. All prescriptions were sent to local pharmacy prior to discharge. An echocardiogram was performed and showed no wall motion abnormality with an EF of 65 to 70%. He had no reperfusion arrhythmias and was able to be discharged in stable condition on 05/02/2025. Lipid panel did show a total cholesterol 143, LDL 73, HDL 51 and triglycerides of 98. Hemoglobin A1c was 62. Follow-up appointment was made with Dr. Hanna to be seen on May 09 and I have referred him to [facility] to see Clare Beltran NP. He currently does not have a primary care physician. Discharge diagnoses: NSTEMI type I Acute coronary syndrome Insulin resistance Essential hypertension Hyperlipidemia CAD Leukocytosis Obesity Physical Exam Const alert, oriented x3, no apparent distress, no limitations and well nourished; Negative for average body habitus Constitutional Narrative: Obese, upper middle-aged, white male, walking around room, at bedside, appears comfortable, nontoxic, cooperative General Appearance: cooperative, comfortable, well kempt and well developed Exam Limitations: no limitations Nutritional Appearance: obese HEENT normocephalic, head/scalp atraumatic, hearing grossly normal bilaterally and moist oral mucous membranes HEENT Narrative: Mallampati 3 Eyes conjunctivae normal Eyes Narrative: scleral icterus Neck supple Neck Narrative: trachea midline Resp normal respiratory effort, no retractions, no use of accessory muscles and clear to auscultation bilaterally Auscultation: Negative for rales, rhonchi or wheezes Cardio regular rate, regular rhythm, S1 normal heart sound, S2 normal heart sound, no murmurs, no rub, no gallops and no clicks GI normal to inspection, nondistended, normoactive bowel sounds, soft to palpation and non-tender Extremity no clubbing, cyanosis or edema Extremity Narrative: 2+ pedal and radial pulses, post cath site is clean dry and intact Skin no jaundice, no petechiae and no mottling Neuro oriented x3, moves all extremities and no focal motor deficits Speech: speech normal Psych affect normal Psych Narrative: Extremely pleasant, interacts appropriately Weight / BMI Weight Weight: 116.4 kg Body Mass Index (BMI) 38.0 ABG / Lab / Microbiology Data 05/02/25 06:33 05/02/25 06:33 Laboratory: Laboratory Results - last 24 hr 05/02/25 06:33: WBC 11.2 H, RBC 4.58 L, Hgb 13.3, Hct 39.3 L, MCV 85.8, MCH 29.0, MCHC 33.8, RDW Std Deviation 44.7 H, RDW Coeff of [place]onia 14.3, Plt Count 195, MPV 9.9, Immature Gran % (Auto) 0.500, Neut % (Auto) 67.0, Lymph % (Auto) 24.1, [place] % (Auto) 7.4, Eos % (Auto) 0.6, Baso % (Auto) 0.4, Absolute Neuts (auto) 7.5, Absolute Lymphs (auto) 2.70, Nucleated RBC % 0, Sodium 137, Potassium 3.8, Chloride 107, Carbon Dioxide 18.8 L, Anion Gap 12, BUN 14, Creatinine 0.80, Estim Creat Clear Calc 117.40, Est GFR (MDRD) Non-Af 99, BUN/Creatinine Ratio 16.8, Glucose 104 H, Calcium 8.3, Phosphorus 1.7 L, Magnesium 2.3 H Radiography Diagnostic Testing: Radiology Impression Echocardiogram 04/30/25 16:21 Interpretation Summary The estimated ejection fraction is 60 %. Mild hypokensis of the inferior wall. Stage 1 diastolic dysfunction. Mild (1+) mitral valve insufficiency. No previous echo to compare. Ordering Physician: Anaid Zavala Referring Physician: Hilario Elliott Performed By: Shandra Cosme, CHRIS D/C Instructions Discharge Activity: Return to Normal Activity Return to work on: 05/03/25 Lifting Restrictions: 10 lbs x 48 hrs and then back to baseline DC O2, CPAP, BIPAP Needs Home O2 Discharge instructions: No Meaningful Use Info Meaningful Use Meaningful Use Diagnoses (Choose all that apply): None applicable and AMI AMI/Post PCI/Angioplasty Aspirin given w/in 24hrs of arrival?: Yes ASA at discharge?: Yes Antiplatelet Therapy at Discharge:: Yes Statins at discharge?: Yes [place]son/ARB at discharge?: Yes Beta Allan at discharge?: Yes Done w/ Acute AL measure.: Yes Documented LVEF (%): 65 Discharge Plan Admission Admit Date/Time: 04/30/25 16:21 Primary Reason for Your Visit: Chest Pain Attending Provider: Deepti Melchor Primary Care Provider: Care Physician,No Primary Consulting Providers: Anaid Zavala; Hilario Elliott Discharge Orders/Prescriptions Prescriptions: New atorvastatin 80 mg Tablet 80 mg PO QHS Qty: 30 0RF aspirin 81 mg Tablet,Delayed Release (Dr/Ec) 81 mg PO BREAKFAST Qty: 0 0RF carvedilol 12.5 mg Tablet 12.5 mg PO BIDCM Qty: 60 0RF lisinopril 20 mg Tablet 20 mg PO DAILY Qty: 30 0RF clopidogrel [Plavix] 75 mg tablet 75 mg PO DAILY Qty: 30 0RF Referrals / Follow Up: Samir Hanna MD [Med Staff - Active Staff] - 05/09/25 10:00 am (APPOINTMENT WITH [facility] Care Physician,No Primary [Primary Care Provider] - Disposition Disposition (needs filled in before D/C Order can be placed): Home, Self Care Charges/Coding Visit Charges Inpatient E&M: 78671 Disch Hosp >30min
[2025-05-02 08:44] LABS: Anion Gap 12 (5-15); BUN 14 mg/dL (4-19); BUN/Creat Ratio 16.8 RATIO (10-20); Calcium,Total 8.3 mg/dL (7.6-11.0); Carbon Dioxide 18.8 mmol/L (21.0-32.0); Chloride 107 mmol/L (98-108); Estimated Creatinine Clearance 117.40 ml/min (50-250); Glucose 104 mg/dL (70-99); Potassium 3.8 mmol/L (3.3-5.1)
[2025-05-02] MEDS: TICAGRELOR 90 MG TABLET PO (09:26)
[2025-05-02] MEDS: Aspirin E.C. 81 MG Tablet PO (09:26)
--- NOTE | 2025-05-02 10:00 | EKG12_ITS ---
Test Reason : AM EKG Blood Pressure : */* mmHG Vent. Rate : 83 BPM Atrial Rate : 83 BPM P-R Int : 156 ms QRS Dur : 98 ms QT Int : 402 ms P-R-T Axes : 45 -24 -6 degrees QTcB Int : 472 ms Normal sinus rhythm Minimal voltage criteria for LVH, may be normal variant ( R in aVL ) Inferior infarct (cited on or before 01-May-2025) Abnormal ECG When compared with ECG of 01-May-2025 04:52, No significant change was found Confirmed by MICHAEL SAVAGE ([id number]), research editor TENZIN URBINA ([id number]) on 05/02/2025 2:00:50 PM Referred By: Michael Savage Confirmed By: MICHAEL SAVAGE
[2025-05-02] MEDS: Sodium Phosphate/Na Biphos 45 MMOL in 0.9% Normal Saline (500mL Bag) 500 ML 85 MMOL IV (10:21)
--- NOTE | 2025-05-02 13:56 | CASEMGMT ---
Patient has order for discharge. RN CM in to discuss needs at discharge. Patient denies needs or help at discharge. Patient had no further questions or concerns.
--- NOTE | 2025-05-02 15:38 | PHA.DC_ITS ---
Pharmacy [facility] Counseling Pharmacy Service has performed discharge medication reconciliation and counseling for this patient. 1. ASPIRIN 81MG PO BREAKFAST 2. ATORVASTATIN 80MG PO QHS 3. CARVEDILOL 3.125MG PO BID 4. CLOPIDOGREL 75MG PO DAILY 5. LISINOPRIL 20MG PO DAILY The patient's discharge medication list was reviewed for discrepancies and discrepancies were resolved. The patient was counseled on the following discharge medications and changes in medications for homegoing were reviewed. The Reason for Use, instructions for use, and potential side effects were reviewed for all new medications. The patient's questions regarding all of their medications were answered. The patient was able to verbally demonstrate an understanding of their discharge medications. Medications at Discharge Home Medications aspirin 81 mg tablet,delayed release 81 mg PO BREAKFAST #0 tabs 05/02/25 atorvastatin 80 mg tablet 80 mg PO QHS #30 tabs 05/02/25 carvedilol 12.5 mg tablet 12.5 mg PO BIDCM #60 tabs 05/02/25 clopidogrel 75 mg tablet (Plavix) 75 mg PO DAILY #30 tabs 05/02/25 lisinopril 20 mg tablet 20 mg PO DAILY #30 tabs 05/02/25
[2025-05-02] MEDS: 0.9% Saline Lock 10 ML Syringe IV (16:36)
== END 2025-05-02 17:33 | disposition home or self-care (01) | DRG 322 ==
LOC: ED 13:34 → ICU 13:37 → PCU 05-01 16:31
PROVIDERS: Admitting Provider Internal Medicine; Emergency Provider Emergency Medicine; Referring Provider Internal Medicine Interventional Cardiology; Visit Provider Internal Medicine
DX: I21.4 Non-ST elevation (NSTEMI) myocardial infarction (principal); I16.0 Hypertensive urgency; E66.9 Obesity, unspecified; I25.10 Atherosclerotic heart disease of native coronary artery without angina pectoris; I45.10 Unspecified right bundle-branch block; I10 Essential (primary) hypertension; E78.5 Hyperlipidemia, unspecified; R07.9 Chest pain, unspecified; R10.13 Epigastric pain; Z95.5 Presence of coronary angioplasty implant and graft; Z79.01 Long term (current) use of anticoagulants; Z68.38 Body mass index [BMI] 38.0-38.9, adult; Z79.02 Long term (current) use of antithrombotics/antiplatelets
CPT/HCPCS: 36415; 80048; 80053; 80061; 83036; 83735; 84100; 84443; 84484; 85025; 85027; 85347; 85610; 85730; 92928; 93005; 93306; 93308; 93454; 94762; 99152; 99153; 99281; C1874; C1887; C1894; Q9967; A4216; C1725; C1757; C1760; C1769; C9600; J1327

== ENCOUNTER → 2025-05-18 | Outpatient (CLI) | payer OTHER, SELFPAY ==
--- NOTE | 2025-05-18 08:01 | CR.HP_ITS ---
CR - History & Physical General Arrival date:: 05/18/25 Arrival time:: 08:01 Date of Referral:: 04/30/25 Date of CR Evaluation:: 05/18/25 Referring Physician: Dr. Elliott Primary Diagnosis: PCI w/stent History of Present Cardiac Event Onset Date PTCA or coronary stenting:: Yes (onset 04/30/25) Vessel: RCA Medications Ambulatory Orders ?Medication ?Instructions ?Recorded aspirin 81 mg tablet,delayed 81 mg PO BREAKFAST #0 tab s 05/02/25 release atorvastatin 80 mg tablet 80 mg PO QHS #90 tabs carvedilol 12.5 mg tablet 12.5 mg PO BIDCM #180 tabs 0 05/09/25 clopidogrel 75 mg tablet (Plavix) 75 mg PO DAILY #90 t abs 05/09/25 lisinopril 20 mg tablet 20 mg PO DAILY #90 tabs 11/28 multivitamin with minerals-folic tab PO 05/09/25 acid 400 mcg-lycopene 370 mcg tablet (One-A-Day Men's 50 Plus) Allergies Allergies No Known Allergies Allergy (Verified 05/09/25 10:06) Sleep Disorder Evaluation Hx of Sleep Apnea: No Do you snore loudly (louder than talking or can be heard through closed doors)?: No Do you often feel tired/ fatigued/ sleepy during daytime?: No Has anyone observed you stop breathing during sleep?: No History of Hypertension (for STOP score): Yes STOP Results: Negative Advanced Directives Advanced Directives Do you have a Healthcare Power of Director Of Community Life?: No Living Will: No Advance Directives Information Provided: No Advance Directives on File: No DNR Order?:: No Past Medical History Covid-19 Screening Physicial Symptoms Other Clinical Concerns Exposure Risk Pertinent Comorbidities Has a serious heart condition:: Yes Past Medical Illness Past Medical History (Updated 05/17/25 @ 12:57 by [place]ry [place] MOTTLER OPERATOR, MOTTLER OPERATOR-C) Atherosclerotic heart disease of [place] coronary artery without angina pectoris I25.10 Appendicitis K37 History of blood transfusion Z92.89 As a Kidney stones N20.0 Ureteral stent present Z96.0 2010; Past Surgical History Past Surgical History (Updated 05/10/25 @ 00:01 by Daphne Torres) Stented coronary artery (04/30/25) Z95.5 Successful PCI of the proximal RCA using drug-eluting stent 4.5 x 30 mm [place]. History of appendectomy Z90.49 Family History Summary Family History (Updated 05/09/25 @ 10:42 by Jeffry Mills MOTTLER OPERATOR, MOTTLER OPERATOR-C) Mother Rheumatoid arthritis Father Myocardial infarction Heart disease, Onset Age: 59 at 79 Sudden cardiac Sister Cancer Brother CAD (coronary artery disease), Onset Age: 70 Social History Smoking History Smoking Status: Never smoker Alcohol Use Alcohol Usage: No Occupation Occupation (List type of work in comments):: Employed Hours worked per day:: 8 Social Environment Status Marital Status: Current Living Arrangements Living Environment:: Spouse Children How many children do you have?: 3 Do any of your children live nearby?: Yes Safety Do you feel safe in your surroundings?: Yes Assistance Do you need any assistance at home?: no Review of Systems Review of Systems Hints Review of Present Symptoms: Reports Fatigue, Appetite - Normal, Appetite - Special Diet and Sleep - Normal; Denies Shortness of Breath at Rest, Shortness of Breath with Exertion, PVD, Operative Discomfort, Angina, Wound Healing, Dizziness/Lightheadedness, Heart Arrhythmia/Irregularities or Sexual Changes Pain Is Patient Pain Free?: Yes Risk Factor Assessment Chief Complaint Chief Complaint: PCI w/stent Vital Signs Blood Pressure: 113/78 Pulse Pulse Rate: 62 Hypertension Blood Pressure Sitting - Right Arm: 113/78 Obesity Height: 5 ft 9 in Weight:: 249 lb Weight in Pounds: 249.0 lbs Body Mass Index (BMI): 36.7 Nutritional Referral for Obesity: No Physical Inactivity Physical Inactivity: Reg Exercise 30 min/day Risk Stratification Risk Guidelines: Moderate Risk: Risk Factor for Smoking, Risk Factor for Diabetes, Risk Factor for Sedentary Lifestyle and Risk Factor for Depression and Highest Risk: Risk Factor for Dyslipidemia, Risk Factor for Obesity and Risk Factor for Hypertension For Smoking Smoking Risk Guidelines For Dyslipidemia Dyslipidemia Risk Guidelines For Diabetes Mellitus Diabetes Risk Guidelines For Obesity/Overweight Obesity/Overweight Risk Guidelines For Hypertension Hypertension Risk Guidelines For Sedentary Lifestyle Sedentary Lifestyle Risk Guidelines For Depression Depression Risk Guidelines Family History Family History (Updated 05/09/25 @ 10:42 by Jeffry Mills NP, MOTTLER OPERATOR-C) Mother Rheumatoid arthritis Father Myocardial infarction Heart disease, Onset Age: 59 Sudden cardiac Sister Cancer Brother CAD (coronary artery disease), Onset Age: 70 Motivation Motivation to Participate On a scale of 1 to 10, how prepared are you to commit to attending program?: 10 What do you see as barriers to successfully being able to complete the program?: nothing What do you see as the benefits of succesfully completing the program? In other words, what do you hope to get out of participating in the program?: More energy, participate in home exercise Are there issues you are dealing with that will interfere with completing the program?: no Do you have a spouse or signficant other, family or friends who will help support you to complete the program?: yes
[2025-05-18 08:05] VITALS: BP 113/78; PULSE 62
--- NOTE | 2025-05-18 08:05 | CR.ITP_ITS ---
Diagnosis General Information Admitting Diagnosis: PCI w/stent Personal Learning Style:: Audio/Visual Barriers to Learning: Cognitive/Learning Impairment, Cultural/Spiritual, Decreased Motivation, Emotional/Anxiety, Hearing Impairment, Language, Low Literacy, Mental Status, No Barriers, Physical Condition/Sensory Deficit and Vision Impairment Stage of change r/t lifestyle modifications:: Contemplation Gave educational material for:: Treating Heart Disease, How The Heart Works, What it means to have Heart Disease, How Coronary Artery Disease is Diagnosed, Heart Procedures, What Heart Medications Do, Risk Factors & Modifications, Living an Active Life, Nutrition, Emotions & Heart Disease, Stress Management & Relaxation and Sleep Disorders & Heart Disease Education/Goals Cardiac Rehabilitation Goals Personal Goals: Initial Assessment: Improve energy level, Participate in home exercise program, Improve diet and eating habits (eat healthier) and Control risk factors (learn risk factor modification) Scale for measuring improvement of personal goals Diagnosis & Disease Process Outcomes/Goals: Pt IDs own risk factors & lifestyle modifications by Session 10, Verbalizes symptoms of angina & response by session 3., Pt independently manages and Other Additional Outcomes/Goals: Plan/Interventions: Assist Pt to ID & engage in lifestyle modification to reduce CVD risk, Instruct on individual risk factors, Review symptoms of angina & emergency actions, Review secondary diagnosis & identify educational needs. and Other see comment 30 day Reassessments:: Not Met 30 day Reassessments:: Not Met 30 day Reassessments:: Not Met 30 day Reassessments:: Not Met Final Reassessments:: Not Met Safety Referral to Physical Therapy: No Referral to [facility] Case Management: No Fall Risk Assessed:: Yes Assistive Devices:: None Exercise - Initial Assessment Visit Date of Eval: 05/18/25 (initial eval ) Mets: Pre-: >3 METS for 30 minutes by discharge, >5 METS for 30 minutes by discharge, >7 METS for 30 minutes by discharge and Unable to meet goal due to: (see comment below) Physician Prescribed Exercise Modalities: Treadmill, Rower, Aldo Bynum AD-7, SciFit Stepper, SciFit Pro- II Ergometer and 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 Frequency: 3x/week for 12 weeks [36 sessions] Intensity: 60-80% of age predicted maximum heart rate reserve Duration: 30 - 45 minutes Current METSs:: 3 Target Heart Rate:: 94-117 Resting Blood Pressure: 113/78 EKG Type: NSR Outcomes & Goals Goals:: Verbalizes understanding of THR, RPE & goal METS by session 6, Documents in home exercise log/reports 30 min aerobic 5 day/wk by DC, Demonstrates accurate pulse taking by DC and Other additional outcome/goals: see below Intervention & Plan Exercise Program Goals: Instruct on personal THR & RPE, Instruct on MET level & personal MET goal, Show patient to take own pulse /validate performance until accurate, Instruct on home exercise and Other additional plan/int Physical Activity Home Exercise Physical Activity - Home Exercise: Safe Exercise, Warm-up, Self-monitoring, Cool-Down, Home Exercise > 30 min Daily and Sitting Time <3 hours/daily Outcomes & Goals Outcomes/Goals: Demonstrates correct Warm-up/exercise Cool-Down (S3) if = 2.5 METs, Verbalizes symptoms of exercise intolerance by Session 3 (S3), Demonstrate safe equipment use (S3) & follows exercise prescrition (6) and Other: See below Intervention & Plan Plan/Intervention: Instruct warm-up & cool-down if exercising at > 2 METs, Instruct on symptoms of exercise intolerance & actions to take, Instruct & monitor on saf, Assess intial functional capacity & safety risk and Other See below Nutrition - Initial Assessment Program Goals Nutrition Program Goals Patient has diagnosis of Hyperlipidemia (ICD E78)?: Yes Visit Date of Eval: 05/18/25 (initial eval) Cholesterol/Lipids (Other Core Measures) Determine presence & major risk factors that modify LDL goal: Cigarette smoking, Hypertension or hypertensive medication, Low HDL cholesterol <40 mg/dL*, Family history of premature CHD in Male < 55 years: female <65 yearsFa and Age men > 45 years; women >/= 55 years Outcomes/Goals: Pt IDs own risk factors & lifestyle modifications by Session 10, Verbalizes symptoms of angina & response by session 3., Pt independently manages and Other Additional Outcomes/Goals: Intervention/Plan: Advocate for lipid panel cholesterol medication if applicable, Instruct on personal lipid levels & lipid goals/NCEP guidelines, Instruct on cholesterol and Other additional plan/int Diabetes (Other Core Measures) Diabetes Type: Not Applicable Weight Mgt (Other Care) Height: 5 ft 9 in Weight:: 249 lb BMI: 36.7 Diagnosis Overweight/Obesity BMI> 30% ICD-10 E66: Yes Diagnosis High BMI/Morbid Obesity BMI> 35% ICD-10 Z68: Yes Outcomes/Goals: Pt sets, maintains & shows weight loss goal & trend during rehab and Other additional outcomes/goals Intervention/Plan: Instruct on ideal BMI & set weight loss goal w/patient, Assist pt to ID & incorporate diet changes for weight loss by S9, Refer to Structured Weight Loss program as appropriate, Encourage goal of using 250- 300dcal per session for weight loss and Other additional plan/interventions Healthy Eating Habits Will attend diet classes:: Yes Outcomes/Goals:: Consume diet rich in vegs,fruits,whole grain/high fiber,fish,le an meat, Limit sat/trans fats,cholesterol & added salts & sugars and Other additional outcome/goals: Intervention/Plan:: Assess current eating habits and Other Additional plan/ interventions Education Gave educational materials for:: Signs & symptoms of hypoglycemia, Signs & symptoms of hyperglycemia, Relate diabetes to coronary artery disease and Healthy eating Core - Initial Assessment Visit Date of Eval: 05/18/25 (initial eval ) Medication Compliance Preventative Medication(s):: Aspirin, BRISA inhibitor, Clopidogrel/P2Y12 inhibit, Statin/lipid and Beta juan H/O mental health issues: depression, anxiety, or addiction?: No Doesn?t believe in the benefits of treatment?: No Believes medications are unnecessary or harmful?: No Has a concern about medication side effects?: No Expresses concern over the cost of medications?: No Outcomes/Goals: Verbalizes medications,desired effect & common side effects @ DC, Pt self-reports following medication regimen, Keeps card in wallet w/medications listed by DC and Other additional outcome/goals: Interventions/plans: Instruct on medication effects & side effects, Review medication list w/patient every two weeks, Instruct importance of taking meds as ordered & assist problem solving and Other additional Tobacco Use Tobacco Use: Non-smoker Hypertension Hypertension Diagnosis:: Hypertension ICD-10 I10 Resting Blood Pressure:: 113/78 [employer] Hypertension Guidelines Outcomes/Goals: Able to verbalize/achieve optimal blood pressure <130/80, Incorporates diet changes & exercise for blood pressure control by DC and Other additional outcomes/goals Interventions/plan: Instruct on optimal blood pressure, hypertension & medications, Instruct on effects of sodium, alcohol, stress, exercise &hypertension and Other additional plan/interventions Tobacco Cessation Referral Smoking Cessation Referral:: No Individual Education/Counseling:: No Education Schedule Given:: Yes Psychosocial - Initial Assess VIsit Date of Eval: 09/12/25 (initial eval ) History of previous Mental disease:: No Psychosocial Test Tool Used:: PHQ-9 Questionnaire phq-9 Severity See PHQ-9 Score: 1 Referral to Behavioral Health PS - Interventions: Yes: Attend Stress Management Classes Outcomes/Goals: See list Psychosocial Outcomes/Goals:: ID's personal stressors & 2 strategies to manage stress by discharge and Other Additional outcome/goals: Intervention/Plan: See List Interventions/Plan:: Assess stressors,coping strategies & signs of derpression on admission, Instruct/assist pt to develop coping & personal stress Mgt strategies, Refer to Behavioral Health if appropriate, Refer to Physician if appropriate, Instruct patient to recognize signs & symptoms of depression, Instruct patient to recog and Other additional plan/intervention Comments:: ?Pt denies any psychosocial issues at this time. Patient Health Questionnaire PHQ-9 Screening Initial Assessment: 1. Little interest or pleasure in doing things: Not at all 2. Feeling down, depressed, or hopeless: Not at all 3. Trouble falling or staying asleep, or sleeping too much: Not at all 4. Feeling tired or having little energy: Several days 5. Poor appetite or overeating: Not at all 6. Feeling bad about yourself -- or that you are a failure or have let yourself or your family down: Not at all 7. Trouble concentrating on things, such as reading the newspaper or watching television: Not at all 8. Moving or speaking so slowly that other people could have noticed. Or the opposite - being so fidgety or restless that you have been moving around a lot more than usual: Not at all 9. Thoughts that you would be better off , or of hurting yourself in some way: Not at all How difficult have these problems made it for you to do your work, take care of things at home, or get along with other people?: Not difficult at all Total Score: 1 PAULINO-Q SV Test Statements CAD is a disease of the arteries in the heart: False Examples of risk factors for heart disease: True Angina is chest pain or discomfort: I Don't Know The benefits of resistance training include: True Eating more meat and dairy products: False Anti-platelet medications such as aspirin are important: True The only effective way to manage stress: False An exercise warm-up slowly increases heart rate: I Don't Know Prepared, processed foods usually have high sodium: True Depression is common after a heart attack: True The statin medications lower cholesterol: True To control blood pressure, lower the amount of sodium: True If someone gets chest discomfort during walking: False Transfats are partially hydrogenated vegetable oils: True Sleep apnea that is not treated increases the risk: False To control cholesterol, one should become a vegetarian: I Don't Know Someone knows if he/she is exercising at the right level: I Don't Know Diabetes cannot be prevented with exercise & health eating: False Stress is a large risk for heart attack: True A diet that can help lower blood pressure is rich in: True Total Score Total Correct Responses: 16 Self-Efficacy 6-Item Scale Initial Assessment: We would like to know how confident you are in doing certain activities. Please select your confidence level for: Fatigue Select Number: 8 Physical Discomfort or Pain Select Number: 9 Emotional Distress Select Number: 8 Other Symptoms or Health Problems Select Number: 8 Different Tasks and Activities Select Number: 9 Medication Select Number: 9 Total Score:: 8 Nutrition Survey Nutrition Survey Initial: Have you lost >10 lbs over the past 2 months without trying?: No Are you following a special diet at home for diabetes, low fat, or low salt?: No Are you interested in meeting with a dietitian for help understanding your diet?: Yes Do you eat less than 3 meals a day?: No Do you eat fatty meats (mariano, sausage, ribs, etc), fried foods, desserts, large amounts of salad dressings, margarine, butter, or cheese most days?: No Do you have food allergies? 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 Exercise - 60-day Assessment Physician Prescribed Exercise Modalities: Treadmill, RowerLettyinkt [place] AD-7, SciFit Stepper, SciFit Pro- II Ergometer and 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 [place] Exercise - 90-day Assessment Physician Prescribed Exercise Modalities: Treadmill, Rower, Schwinn Airdyne AD-7, SciFit Stepper, SciFit Pro- II Ergometer and 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 [place] Exercise - Final/Discharge Physician Prescribed Exercise Modalities: Treadmill, Rower, Schwinn Airdyne AD-7, SciFit Stepper, SciFit Pro- II Ergometer and 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 Frequency: 3x/week for 12 weeks [36 sessions] Intensity: 60-80% of age predicted maximum heart rate reserve Current METSs:: 3 Target Heart Rate:: 94-117 Nutrition - 30-Day Assessment Weight Mgt (Other Care) Height: 5 ft 9 in Weight:: 249 lb BMI: 36.7 Nutrition - 60-Day Assessment Weight Mgt (Other Care) Height: 5 ft 9 in Weight:: 249 lb BMI: 36.7 Core - Final Assessment Hypertension Resting Blood Pressure:: 113/78 [employer] Hypertension Guidelines Core - 60-Day Assessment Hypertension Resting Blood Pressure:: 113/78 [employer] Hypertension Guidelines Psychosocial - 30-Day Assess Referral to Behavioral Health PS - Interventions: Yes: Attend Stress Management Classes Psychosocial - 60-Day Assess Referral to Behavioral Health PS - Interventions: Yes: Attend Stress Management Classes Psychosocial - 90-Day Assess Referral to Behavioral Health PS - Interventions: Yes: Attend Stress Management Classes Psychosocial - Final Assessmen Psychosocial Test phq-9 Severity See PHQ-9 Score: 1 Referral to Behavioral Health PS - Interventions: Yes: Attend Stress Management Classes Nutrition - 90-Day Assessment Weight Mgt (Other Care) Height: 5 ft 9 in Weight:: 249 lb BMI: 36.7 Nutrition - Final Assessment Program Goals Patient has diagnosis of Hyperlipidemia (ICD E78)?: Yes Weight Mgt (Other Care) Height: 5 ft 9 in Weight:: 249 lb BMI: 36.7
[2025-05-18 08:08] VITALS: BP 113/78
[2025-05-18 08:39] VITALS: BMI 36.7
[2025-05-18 08:50] VITALS: BP 113/78
[2025-05-18 08:55] VITALS: BMI 36.7
== END | disposition home or self-care (01) ==
PROVIDERS: PCP Family Medicine; Referring Provider Internal Medicine Interventional Cardiology; Visit Provider Internal Medicine Interventional Cardiology
DX: I25.10 Atherosclerotic heart disease of native coronary artery without angina pectoris (principal); I24.9 Acute ischemic heart disease, unspecified; I16.0 Hypertensive urgency; Z95.5 Presence of coronary angioplasty implant and graft

== ENCOUNTER 2025-06-04 08:00 | Outpatient (RCR) | payer OTHER, SELFPAY ==
[2025-05-18 08:39] VITALS: BMI 36.7
== END 2025-06-05 23:59 ==
LOC: CR 08:00
PROVIDERS: PCP Family Medicine; Referring Provider Internal Medicine Interventional Cardiology; Visit Provider Internal Medicine Interventional Cardiology
DX: Z95.5 Presence of coronary angioplasty implant and graft (principal); I16.0 Hypertensive urgency; I24.9 Acute ischemic heart disease, unspecified; I25.10 Atherosclerotic heart disease of native coronary artery without angina pectoris
CPT/HCPCS: 93798

== ENCOUNTER 2025-07-06 08:00 | Outpatient (RCR) | payer OTHER, SELFPAY ==
[2025-05-18 08:39] VITALS: BMI 36.7
--- NOTE | 2025-06-14 08:39 | PCM.CR.ITP ---
Exercise - Initial Assessment Physician Prescribed Exercise Modalities: Treadmill, Schwinn Airdyne AD-7 and SciFit Stepper Nutrition - Initial Assessment Weight Mgt (Other Care) Height: 5 ft 9 in Weight:: 237 lb BMI: 34.9 Psychosocial - Initial Assess Referral to Behavioral Health PS - Interventions: Yes: Attend Stress Management Classes Exercise - 30-day Assessment Visit Date of Eval: 06/14/25 Session #:: 9 Physician Prescribed Exercise Modalities: Treadmill, Schwinn Airdyne AD-7 and SciFit Stepper Frequency: 3x/week for 12 weeks [36 sessions] Intensity: 60-80% of age predicted maximum heart rate reserve Duration: 30 - 45 minutes Current METSs:: 4.5 Target Heart Rate:: 94-117 Current RPE:: 10-12 Maximum Excercise HR:: 95 Resting Blood Pressure: 130/80 Maximum Exercise Blood Pressure: 138/82 EKG Type: SB-NSR occas PVC Outcomes & Goals Goals:: Verbalizes understanding of THR, RPE & goal METS by session 6, Documents in home exercise log/reports 30 min aerobic 5 day/wk by DC, Demonstrates accurate pulse taking by DC and Other additional outcome/goals: see below Intervention & Plan Exercise Program Goals: Instruct on personal THR & RPE, Instruct on MET level & personal MET goal, Show patient to take own pulse /validate performance until accurate, Instruct on home exercise and Other additional plan/int Physical Activity Home Exercise Physical Activity - Home Exercise: Safe Exercise, Warm-up, Self-monitoring, Cool-Down, Home Exercise > 30 min Daily and Sitting Time <3 hours/daily Outcomes & Goals Outcomes/Goals: Demonstrates correct Warm-up/exercise Cool-Down (S3) if = 2.5 METs, Verbalizes symptoms of exercise intolerance by Session 3 (S3), Demonstrate safe equipment use (S3) & follows exercise prescrition (6) and Other: See below Intervention & Plan Plan/Intervention: Instruct warm-up & cool-down if exercising at > 2 METs, Instruct on symptoms of exercise intolerance & actions to take, Instruct & monitor on saf, Assess intial functional capacity & safety risk and Other See below 30-day Reassessments 30 day Reassessments:: Progressing Reassessment Notes & Comments:: Pt oriented to equipment. RPE explained to pt. Pt demonstrates understanding in his daily sessions. Exercise - 60-day Assessment Physician Prescribed Exercise Modalities: Treadmill, Schwinn Airdyne AD-7 and SciFit Stepper Exercise - 90-day Assessment Physician Prescribed Exercise Modalities: Treadmill, Schwinn Airdyne AD-7 and SciFit Stepper Exercise - Final/Discharge Physician Prescribed Exercise Modalities: Treadmill, Schwinn Airdyne AD-7 and SciFit Stepper Nutrition - 30-Day Assessment Program Goals Nutrition Program Goals Patient has diagnosis of Hyperlipidemia (ICD E78)?: Yes Visit Date of Eval: 06/14/25 Session #:: 9 (Nutrition survey score of 1.) Cholesterol/Lipids (Other Core Measures) Determine presence & major risk factors that modify LDL goal: Hypertension or hypertensive medication, Low HDL cholesterol <40 mg/dL*, Family history of premature CHD in Male < 55 years: female <65 yearsFa and Age men > 45 years; women >/= 55 years Outcomes/Goals: Pt IDs own risk factors & lifestyle modifications by Session 10, Verbalizes symptoms of angina & response by session 3., Pt independently manages and Other Additional Outcomes/Goals: Intervention/Plan: Advocate for lipid panel cholesterol medication if applicable, Instruct on personal lipid levels & lipid goals/NCEP guidelines, Instruct on cholesterol and Other additional plan/int Referral to dietitian:: Yes (Pt has met with our investigations manager for a 1 on 1 consultation 06/13/25.) Diabetes (Other Core Measures) Diabetes Type: Not Applicable Weight Mgt (Other Care) Height: 5 ft 9 in Weight:: 237 lb BMI: 34.9 Diagnosis Overweight/Obesity BMI> 30% ICD-10 E66: Yes Diagnosis High BMI/Morbid Obesity BMI> 35% ICD-10 Z68: No Outcomes/Goals: Pt sets, maintains & shows weight loss goal & trend during rehab and Other additional outcomes/goals Intervention/Plan: Instruct on ideal BMI & set weight loss goal w/patient, Assist pt to ID & incorporate diet changes for weight loss by S9, Refer to Structured Weight Loss program as appropriate, Encourage goal of using 250-300dcal per session for weight loss and Other additional plan/interventions 30 day Reassessments:: Progressing Reassessment Notes & Comments:: Pt is scheduled to attend nutrition classes. Low sodium heart healthy diet encouraged. Pt has met with our investigations manager for a 1 on 1 consultation. Pt has lost 5 lbs. Healthy Eating Habits Will attend diet classes:: Yes Outcomes/Goals:: Consume diet rich in vegs,fruits,whole grain/high fiber,fish,lean meat, Limit sat/trans fats,cholesterol & added salts & sugars and Other additional outcome/goals: Intervention/Plan:: Assess current eating habits and Other Additional plan/interventions 30-day Reassessments:: Progressing Reassessment Notes & Comments:: Pt is scheduled to attend nutrition classes. Low sodium heart healthy diet encouraged. Pt has met with our investigations manager for a 1 on 1 consultation. Education Gave educational materials for:: Signs & symptoms of hypoglycemia, Signs & symptoms of hyperglycemia, Relate diabetes to coronary artery disease and Healthy eating Nutrition - 60-Day Assessment Weight Mgt (Other Care) Height: 5 ft 9 in Weight:: 237 lb BMI: 34.9 Core - 30-Day Assessment Visit Date of Eval: 06/14/25 Medication Compliance Preventative Medication(s):: Aspirin, BRISA inhibitor, Clopidogrel/P2Y12 inhibit, Statin/lipid and Beta juan H/O mental health issues: depression, anxiety, or addiction?: No Doesn’t believe in the benefits of treatment?: No Believes medications are unnecessary or harmful?: No Has a concern about medication side effects?: No Expresses concern over the cost of medications?: No Outcomes/Goals: Verbalizes medications,desired effect & common side effects @ DC, Pt self-reports following medication regimen, Keeps card in wallet w/medications listed by DC and Other additional outcome/goals: Interventions/plans: Instruct on medication effects & side effects, Review medication list w/patient every two weeks, Instruct importance of taking meds as ordered & assist problem solving and Other additional 30-day Reassessments:: Progressing Reassessment Notes & Comments:: Pt is currently taking meds as prescribed. Pt to attend cardiac meds class. Tobacco Use Tobacco Use: Non-smoker Hypertension Hypertension Diagnosis:: Hypertension ICD-10 I10 Resting Blood Pressure:: 130/80 [place] [employer] Hypertension Guidelines Peak Exercise Blood Pressure:: 138/82 Outcomes/Goals: Able to verbalize/achieve optimal blood pressure <130/80, Incorporates diet changes & exercise for blood pressure control by DC and Other additional outcomes/goals Interventions/plan: Instruct on optimal blood pressure, hypertension & medications, Instruct on effects of sodium, alcohol, stress, exercise &hypertension and Other additional plan/interventions 30 day Reassessments:: Progressing Reassessment Notes & Comments:: Pt's BP's are within AHA normal limits on most days. Weight loss and a low sodium heart healthy diet encouraged. Will continue to monitor and report to pt's physician if necessary. Tobacco Cessation Referral Smoking Cessation Referral:: No Individual Education/Counseling:: No Education Schedule Given:: Yes Psychosocial - 30-Day Assess VIsit Date of Eval: 06/14/25 Session #:: 9 History of previous Mental disease:: No Psychosocial Test Tool Used:: [employer] QOL Cardiac and PHQ-9 Questionnaire phq-9 Severity See PHQ-9 Score: 1 Referral to Behavioral Health PS - Interventions: Yes: Attend Stress Management Classes Outcomes/Goals: See list Psychosocial Outcomes/Goals:: ID's personal stressors & 2 strategies to manage stress by discharge and Other Additional outcome/goals: Intervention/Plan: See List Interventions/Plan:: Assess stressors,coping strategies & signs of derpression on admission, Instruct/assist pt to develop coping & personal stress Mgt strategies, Refer to Behavioral Health if appropriate, Refer to Physician if appropriate, Instruct patient to recognize signs & symptoms of depression, Instruct patient to recog and Other additional plan/intervention 30-day Reassessments: 30 day Reassessments:: Progressing Reassessment Notes & Comments:: Pt denies any psychosocial issues at this time. Pt to attend stress management class. Will reassess every 30 days. Psychosocial - 60-Day Assess Referral to Behavioral Health PS - Interventions: Yes: Attend Stress Management Classes Outcomes/Goals: See list Psychosocial Outcomes/Goals:: ID's personal stressors & 2 strategies to manage stress by discharge and Other Additional outcome/goals: Psychosocial - 90-Day Assess Referral to Behavioral Health PS - Interventions: Yes: Attend Stress Management Classes Psychosocial - Final Assessmen Referral to Behavioral Health PS - Interventions: Yes: Attend Stress Management Classes Nutrition - 90-Day Assessment Weight Mgt (Other Care) Height: 5 ft 9 in Weight:: 237 lb BMI: 34.9 Nutrition - Final Assessment Weight Mgt (Other Care) Height: 5 ft 9 in Weight:: 237 lb BMI: 34.9
[2025-06-14 08:48] VITALS: BP 130/80; BMI 34.9
== END 2025-07-06 23:59 ==
LOC: CR 08:00
PROVIDERS: PCP Family Medicine; Referring Provider Internal Medicine Interventional Cardiology; Visit Provider Internal Medicine Interventional Cardiology
DX: Z95.5 Presence of coronary angioplasty implant and graft (principal); I16.0 Hypertensive urgency; I24.9 Acute ischemic heart disease, unspecified; I25.10 Atherosclerotic heart disease of native coronary artery without angina pectoris
CPT/HCPCS: 93798; 97802

== ENCOUNTER 2025-08-01 08:00 | Outpatient (RCR) | payer OTHER, SELFPAY ==
[2025-06-14 08:48] VITALS: BMI 34.9
--- NOTE | 2025-07-12 07:37 | CR.ITP_ITS ---
Exercise - Initial Assessment Physician Prescribed Exercise Modalities: Treadmill, Schwinn Airdyne AD-7 and SciFit Stepper Nutrition - Initial Assessment Weight Mgt (Other Care) Height: 5 ft 9 in Weight:: 231 lb BMI: 34.1 Core - Initial Assessment Hypertension Resting Blood Pressure:: 98/64 Citizen Of [place] Heart [employer] Hypertension Guidelines Psychosocial - Initial Assess Referral to Behavioral Health PS - Interventions: Yes: Attend Stress Management Classes Exercise - 30-day Assessment Physician Prescribed Exercise Modalities: Treadmill, Schwinn Airdyne AD-7 and SciFit Stepper Exercise - 60-day Assessment Visit Date of Eval: 07/12/25 Session #:: 21 Physician Prescribed Exercise Modalities: Treadmill, Schwinn Airdyne AD-7 and SciFit Stepper Frequency: 3x/week for 12 weeks [36 sessions] Intensity: 60-80% of age predicted maximum heart rate reserve Duration: 30 - 45 minutes Current METSs:: 6.1 Target Heart Rate:: 94-117 Current RPE:: 12-13 Maximum Excercise HR:: 101 Resting Blood Pressure: 120/70 Maximum Exercise Blood Pressure: 138/80 EKG Type: SB-SR occas PVC Outcomes & Goals Goals:: Verbalizes understanding of THR, RPE & goal METS by session 6, Documents in home exercise log/reports 30 min aerobic 5 day/wk by DC, Demonstrates accurate pulse taking by DC and Other additional outcome/goals: see below Intervention & Plan Exercise Program Goals: Instruct on personal THR & RPE, Instruct on MET level & personal MET goal, Show patient to take own pulse /validate performance until accurate, Instruct on home exercise and Other additional plan/int Physical Activity Home Exercise Physical Activity - Home Exercise: Safe Exercise, Warm-up, Self-monitoring, Cool-Down, Home Exercise > 30 min Daily and Sitting Time <3 hours/daily Outcomes & Goals Outcomes/Goals: Demonstrates correct Warm-up/exercise Cool-Down (S3) if = 2.5 METs, Verbalizes symptoms of exercise intolerance by Session 3 (S3), Demonstrate safe equipment use (S3) & follows exercise prescrition (6) and Other: See below Intervention & Plan Plan/Intervention: Instruct warm-up & cool-down if exercising at > 2 METs, Instruct on symptoms of exercise intolerance & actions to take, Instruct & monitor on saf, Assess intial functional capacity & safety risk and Other See below 30-day Reassessments 30 day Reassessments:: Progressing Reassessment Notes & Comments:: Proper warm up and cool down demonstrated and explained to pt. Pt is able to return demonstration in their daily sessions. Exercise - 90-day Assessment Physician Prescribed Exercise Modalities: Treadmill, Schwinn Airdyne AD-7 and SciFit Stepper Exercise - Final/Discharge Physician Prescribed Exercise Modalities: Treadmill, Schwinn Airdyne AD-7 and SciFit Stepper Nutrition - 30-Day Assessment Weight Mgt (Other Care) Height: 5 ft 9 in Weight:: 231 lb BMI: 34.1 Nutrition - 60-Day Assessment Program Goals Nutrition Program Goals Patient has diagnosis of Hyperlipidemia (ICD E78)?: Yes Visit Date of Eval: 07/12/25 Session #:: 21 Cholesterol/Lipids (Other Core Measures) Determine presence & major risk factors that modify LDL goal: Cigarette smoking, Hypertension or hypertensive medication, Low HDL cholesterol <40 mg/dL*, Family history of premature CHD in Male < 55 years: female <65 yearsFa and Age men > 45 years; women >/= 55 years Outcomes/Goals: Pt IDs own risk factors & lifestyle modifications by Session 10, Verbalizes symptoms of angina & response by session 3., Pt independently manages and Other Additional Outcomes/Goals: Intervention/Plan: Advocate for lipid panel cholesterol medication if applicable, Instruct on personal lipid levels & lipid goals/NCEP guidelines, Instruct on cholesterol and Other additional plan/int Referral to dietitian:: Yes (Pt saw our dietitian 1 on 1 on 06/13/25. Nutrition survey score of 1.) 30-day Reassessments:: Met Reassessment Notes & Comments:: Pt saw our dietitian 1 on 1 on 06/13/25. Diabetes (Other Core Measures) Diabetes Type: Not Applicable Weight Mgt (Other Care) Height: 5 ft 9 in Weight:: 231 lb BMI: 34.1 Diagnosis Overweight/Obesity BMI> 30% ICD-10 E66: Yes Diagnosis High BMI/Morbid Obesity BMI> 35% ICD-10 Z68: No Outcomes/Goals: Pt sets, maintains & shows weight loss goal & trend during rehab and Other additional outcomes/goals Intervention/Plan: Instruct on ideal BMI & set weight loss goal w/patient, Assist pt to ID & incorporate diet changes for weight loss by S9, Refer to Structured Weight Loss program as appropriate, Encourage goal of using 250- 300dcal per session for weight loss and Other additional plan/interventions 30 day Reassessments:: Progressing Reassessment Notes & Comments:: Pt has met with our elementary tutor for a 1 on 1 consultation. Pt has lost another 6lbs in the past 30 days. Healthy Eating Habits Will attend diet classes:: Yes Outcomes/Goals:: Consume diet rich in vegs,fruits,whole grain/high fiber,fish,lean meat, Limit sat/trans fats,cholesterol & added salts & sugars and Other additional outcome/goals: Intervention/Plan:: Assess current eating habits and Other Additional plan/interventions 30-day Reassessments:: Progressing Reassessment Notes & Comments:: Pt is scheduled to attend nutrition classes with our elementary tutor. Heart healthy low sodium diet encouraged. Education Gave educational materials for:: Signs & symptoms of hypoglycemia, Signs & symptoms of hyperglycemia, Relate diabetes to coronary artery disease and Healthy eating Core - Final Assessment Hypertension Resting Blood Pressure:: 98/64 Citizen Of [place] Heart [employer] Hypertension Guidelines Core - 60-Day Assessment Visit Date of Eval: 07/12/25 Session #:: 21 Medication Compliance Preventative Medication(s):: Aspirin, BRISA inhibitor, Clopidogrel/P2Y12 inhibit, Statin/lipid and Beta juan H/O mental health issues: depression, anxiety, or addiction?: No Doesn’t believe in the benefits of treatment?: No Believes medications are unnecessary or harmful?: No Has a concern about medication side effects?: No Expresses concern over the cost of medications?: No Outcomes/Goals: Verbalizes medications,desired effect & common side effects @ DC, Pt self-reports following medication regimen, Keeps card in wallet w/medications listed by DC and Other additional outcome/goals: Interventions/plans: Instruct on medication effects & side effects, Review medication list w/patient every two weeks, Instruct importance of taking meds as ordered & assist problem solving and Other additional Tobacco Use Tobacco Use: Non-smoker Hypertension Hypertension Diagnosis:: Hypertension ICD-10 I10 Resting Blood Pressure:: 120/70 Resting Blood Pressure:: 98/64 Citizen Of [place] Heart Association Hypertension Guidelines Peak Exercise Blood Pressure:: 138/80 Outcomes/Goals: Able to verbalize/achieve optimal blood pressure <130/80, Incorporates diet changes & exercise for blood pressure control by DC and Other additional outcomes/goals Interventions/plan: Instruct on optimal blood pressure, hypertension & medications, Instruct on effects of sodium, alcohol, stress, exercise &hypertension and Other additional plan/interventions 30 day Reassessments:: Progressing Reassessment Notes & Comments:: Bp's are improving. Pt's BP's are within AHA normal limits on most days. Will continue to monitor and report to pt's physician if necessary. Weight loss and a low sodium heart healthy diet encouraged. Tobacco Cessation Referral Smoking Cessation Referral:: No Individual Education/Counseling:: No Education Schedule Given:: Yes Psychosocial - 30-Day Assess Referral to Behavioral Health PS - Interventions: Yes: Attend Stress Management Classes Outcomes/Goals: See list Psychosocial Outcomes/Goals:: ID's personal stressors & 2 strategies to manage stress by discharge and Other Additional outcome/goals: Psychosocial - 60-Day Assess VIsit Date of Eval: 07/12/25 Session #:: 21 History of previous Mental disease:: No Psychosocial Test Tool Used:: [employer] QOL Cardiac and PHQ-9 Questionnaire phq-9 Severity See PHQ-9 Score: 1 Referral to Behavioral Health PS - Interventions: Yes: Attend Stress Management Classes Outcomes/Goals: See list Psychosocial Outcomes/Goals:: ID's personal stressors & 2 strategies to manage stress by discharge and Other Additional outcome/goals: Intervention/Plan: See List Interventions/Plan:: Assess stressors,coping strategies & signs of derpression on admission, Instruct/assist pt to develop coping & personal stress Mgt strategies, Refer to Behavioral Health if appropriate, Refer to Physician if appropriate, Instruct patient to recognize signs & symptoms of depression, Instruct patient to recog and Other additional plan/intervention 30-day Reassessments: 30 day Reassessments:: Progressing Reassessment Notes & Comments:: Pt denies any psychosocial issues at this time. Pt to attend stress management class. Will reassess every 30 days. Psychosocial - 90-Day Assess Referral to Behavioral Health PS - Interventions: Yes: Attend Stress Management Classes Psychosocial - Final Assessmen Referral to Behavioral Health PS - Interventions: Yes: Attend Stress Management Classes Nutrition - 90-Day Assessment Weight Mgt (Other Care) Height: 5 ft 9 in Weight:: 231 lb BMI: 34.1 Nutrition - Final Assessment Weight Mgt (Other Care) Height: 5 ft 9 in Weight:: 231 lb BMI: 34.1
[2025-07-12 07:51] VITALS: BP 120/70; BP 98/64; BMI 34.1
== END 2025-08-05 23:59 ==
LOC: CR 08:00
PROVIDERS: PCP Family Medicine; Referring Provider Internal Medicine Interventional Cardiology; Visit Provider Internal Medicine Interventional Cardiology
DX: I16.0 Hypertensive urgency (principal); Z95.5 Presence of coronary angioplasty implant and graft; I24.9 Acute ischemic heart disease, unspecified; I25.10 Atherosclerotic heart disease of native coronary artery without angina pectoris
CPT/HCPCS: 93798

== ENCOUNTER → 2025-08-13 | Outpatient (CLI) | payer OTHER, SELFPAY ==
[2025-08-07 10:31] VITALS: BMI 34.0
[2025-08-13 15:55] LABS: PSA,Total - Annual Screen 0.90 ng/mL (0.02-4.00)
== END | disposition home or self-care (01) ==
LOC: MFPLAB 12:37
PROVIDERS: PCP Family Medicine; Visit Provider Family Medicine
DX: Z12.5 Encounter for screening for malignant neoplasm of prostate (principal)
CPT/HCPCS: 36415; 84153; G0103

== ENCOUNTER → 2025-08-16 | Outpatient (CLI) | payer OTHER, SELFPAY ==
[2025-07-12 07:51] VITALS: BMI 34.1
[2025-08-07 10:31] VITALS: BMI 34.0
--- OUTSIDE RECORDS SUMMARY | 2025-08-16 06:37 | XMS RPT_ITS | CCD ---
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 Hernandez Emergency Provider Dr. Michael Elliott MD Referring Provider Care Physician, No Primary Primary Care Provider Unavailable Dr. Anaid Zavala MD Admit Provider Dr. Anaid Zavala MD Attending Provider Dr. David Keene MD Emergency Provider [phone] Michael Elliott MD Attending Provider Dr. Michael Elliott MD Referring Provider Care Physician, No Primary Primary Care Provider Unavailable Dr. Anaid Zavala MD Admit Provider Dr. Anaid Zavala MD Other Provider Dr. Michael Elliott MD Other Provider Dr. Anaid Zavala MD Attending Provider Dr. Deepti Melchor DO Attending Provider Dr. Deepti Melchor DO Other Provider Care Physician, No Primary Referring Provider Un available Jeffry Moscoso Attending Provider Dr. David Keene MD Emergency Department Physician Dr. Michael Elliott MD Attending Physician Care Physician, No Primary Primary Care Physicia n Unavailable Dr. Anaid Zavala MD Admitting Physician Dr. Anaid Zavala MD Nurse Practitioner Dr. Michael Elliott MD Nurse Practitioner Dr. Deepti Melchor DO Attending Physician Dr. Deepti Melchor DO Nurse Practitioner Jeffry Moscoso Attending Physician [phone] Swathi Louis MD Primary Care Physician Care Physician, No Primary Primary Care Unava ilable Anaid Zavala Admitting Unavailable Anaid Zavala Consulting Unavailable Deepti Melchor Attending Unavailable Belal, Farouk Referring Unavailable Belal, Farouk Consulting Unavailable Deepti Melchor Consulting Unavailable Anaid Zavala Attending Unavailable Jeffry Mills Attending Unavailable Care Physician, No Primary Referring Unava ilable Care Physician, No Primary Primary Care Unava ilable Care Physician, No Primary Primary Care Unava ilable Belal, Farouk Attending Unavailable Belal, Farouk Referring Unavailable Anaid Zavala Admitting Unavailable Anaid Zavala Consulting Unavailable Missy, Chalon Primary Care Unavailable Belal, Farouk Referring Unavailable Belal, Farouk Attending Unavailable Missy, Chalon Primary Care Unavailable Belal, Farouk Referring Unavailable Belal, Farouk Attending Unavailable Missy, Chalon Primary Care Unavailable Belal, Farouk Attending Unavailable Belal, Farouk Referring Unavailable Belal, Farouk Referring Unavailable Missy, Chalon Primary Care Unavailable Belal, Farouk Attending Unavailable Care Physician, No Primary Primary Care Unava ilable Belal, Farouk Referring Unavailable Anaid Zavala Admitting Unavailable Anaid Zavala Consulting Unavailable Deepti Melchor Attending Unavailable Belal, Farouk Consulting Unavailable Belal, Farouk Attending Unavailable Medications Current Medications Medication Drug Class(es) Dates Sig (Normalized) Sig (Original) aspirin 81 mg delayed release oral tablet (4 sources) Platelet Aggregation Inhibitor, Nonsteroidal Anti-inflammatory Drug Start: 05-02-2025 take 1 tablet by mouth at breakfast atorvastatin 80 mg oral tablet (7 sources) HMG-CoA Reductase Inhibitor Start: 05-02-2025 End: 05-09-2025 take 1 tablet by mouth at bedtime carvedilol 12.5 mg oral tablet (7 sources) alpha-Adrenergic Allan, beta-Adrenergic Allan Start: 05-02-2025 End: 05-09-2025 take 1 tablet by mouth twice daily at mealtime clopidogrel 75 mg oral tablet (7 sources) P2Y12 Platelet Inhibitor Start: 05-02-2025 End: 05-09-2025 take 1 tablet by mouth once daily lisinopril 20 mg oral tablet (7 sources) Angiotensin Converting Enzyme Inhibitor Start: 05-02-2025 End: 05-09-2025 take 1 tablet by mouth once daily Multivit With Gbp-Io-Xmlxgked (One-A-Day Men's 50 Plus) 400-370 mcg tablet (3 sources) Start: 05-09-2025 take 50-400 tablets by mouth once daily Start: 05-09-2025 take 50-400 tablets by mouth once daily Multivit With Mhl-Vw-Ycjmrwun (One-A-Day Men's 50 Plus) 400-370 mcg tablet Active {tbl} PO May 09, 2025 12:00am Problems Problem Classification Problem Date Documented Date Episodic/Chronic Coronary atherosclerosis and other heart disease (20 sources) Acute coronary syndrome; Translations: [Acute ischemic heart disease, unspecified] Onset: 05-24-2025 04-30-2025 Chronic Coronary atherosclerosis and other heart disease (15 sources) Stented coronary artery; Translations: [Presence of coronary angioplasty implant and graft] Onset: 04-30-2025 04-30-2025 Episodic Comment on above: Successful PCI of th e proximal RCA using drug-eluting stent 4.5 x 30 mm [place] frontier. Coronary atherosclerosis and other heart disease (6 sources) Coronary atherosclerosis and other heart disease; Translations: [Atherosclerosis of [place] coronary artery without angina pectoris] Hypertension with complications and secondary hypertension (17 sources) Hypertensive urgency ; Translations: [Hypertensive urgency] 04-30-2025 Chronic Nonspecific chest pain (1 source) Chest pain, unspecified; Translations: [Chest pain, unspecified] Onset: 05-24-2025 Episodic Unclassified (5 sources) Z95.5 - Presence of coronary angioplasty implant and graft,I16.0 - Hypertensive urgency,I24.9 - Acute ischemic heart disease, unspecified,I25.10 - Atherosclerotic heart disease of [place] coronary artery without angina pectoris Unclassified (4 sources) APPOINTMENT WITH [facility] [facility] Results Test Name Value Interpretation Reference Range Facility Cardiac rehabilitation evalu ation reportOrdered By: Jt Alvares on 05-19-2025 Study report [facility] Cardiac Rehab [address] [place] [address] CR - History & Physical MR#: [id number] Acct: [id number] Name: ALBERT ANDRADE Rep #:[id number] : 1960 64 From: Jt Herrera BS, RVT PCP: Dr. Swathi Louis MD DOS: 5 CR - History & Physical General Arrival date:: 05/18/25 Arrival time:: 08:01 Date of Referral:: 04/30/25 Date of CR Evaluation:: 05/18/25 Referring Physician: Dr. Elliott Primary Diagnosis: PCI w/stent History of Present Cardiac Event Onset Date PTCA or coronary stenting:: Yes (onset 04/30/25) Vessel: RCA Medications Ambulatory Orders ?Medication ?Instructions ?Recorded aspirin 81 mg tablet,delayed 81 mg PO BREAKFAST #0 tab s 05/02/25 release atorvastatin 80 mg tablet 80 mg PO QHS #90 tabs carvedilol 12.5 mg tablet 12.5 mg PO BIDCM #180 tabs 0 05/09/25 clopidogrel 75 mg tablet (Plavix) 75 mg PO DAILY #90 t abs 05/09/25 lisinopril 20 mg tablet 20 mg PO DAILY #90 tabs 11/28 multivitamin with minerals-folic tab PO 05/09/25 acid 400 mcg-lycopene 370 mcg tablet (One-A-Day Men's 50 Plus) Allergies Allergies No Known Allergies Allergy (Verified 05/09/25 10:06) Sleep Disorder Evaluation Hx of Sleep Apnea: No Do you snore loudly (louder than talking or can be heard through closed doors)?:No Do you often feel tired/ fatigued/ sleepy during daytime?: No Has anyone observed you stop breathing during sleep?: No History of Hypertension (for STOP score): Yes STOP Results: Negative Advanced Directives Advanced Directives Do you have a Healthcare Power of Loom Overhauler?: No Living Will: No Advance Directives Information Provided: No Advance Directives on File: No DNR Order?:: No Past Medical History Covid-19 Screening Physicial Symptoms Other Clinical Concerns Exposure Risk Pertinent Comorbidities Has a serious heart condition:: Yes Past Medical Illness Past Medical History (Updated 05/17/25 @ 12:57 by Jeffry Mills AGRICULTURAL AGENT, AGRICULTURAL AGENT-C) Atherosclerotic heart disease of [place] coronary artery without angina pectoris I25.10 Appendicitis K37 History of blood transfusion Z92.89 As a Kidney stones N20.0 Ureteral stent present Z96.0 2010; Past Surgical History Past Surgical History (Updated 05/10/25 @ 00:01 by Daphne Torres) Stented coronary artery (04/30/25) Z95.5 Successful PCI of the proximal RCA using drug-eluting stent 4.5 x 30 mm [place]. History of appendectomy Z90.49 Family History Summary Family History (Updated 05/09/25 @ 10:42 by Jeffry Mills AGRICULTURAL AGENT, AGRICULTURAL AGENT-C) Mother Rheumatoid arthritis Father Myocardial infarction Heart disease, Onset Age: 59 at 79 Sudden cardiac Sister Cancer Brother CAD (coronary artery disease), Onset Age: 70 Social History Smoking History Smoking Status: Never smoker Alcohol Use Alcohol Usage: No Occupation Occupation (List type of work in comments):: Employed Hours worked per day:: 8 Social Environment Status Marital Status: Current Living Arrangements Living Environment:: Spouse Children How many children do you have?: 3 Do any of your children live nearby?: Yes Safety Do you feel safe in your surroundings?: Yes Assistance Do you need any assistance at home?: no Review of Systems Review of Systems Hints Review of Present Symptoms: Reports Fatigue, Appetite - Normal, Appetite - Special Diet and Sleep - Normal; Denies Shortness of Breath at Rest, Shortness of Breath with Exertion, PVD, Operative Discomfort, Angina, Wound Healing, Dizziness/Lightheaded ness, Heart Arrhythmia/Irregulari ties or Sexual Changes Pain Is Patient Pain Free?: Yes Risk Factor Assessment Chief Complaint Chief Complaint: PCI w/stent Vital Signs Blood Pressure: 113/78 Pulse Pulse Rate: 62 Hypertension Blood Pressure Sitting - Right Arm: 113/78 Obesity Height: 5 ft 9 in Weight:: 249 lb Weight in Pounds: 249.0 lbs Body Mass Index (BMI): 36.7 Nutritional Referral for Obesity: No Physical Inactivity Physical Inactivity: Reg Exercise 30 min/day Risk Stratification Risk Guidelines: Moderate Risk: Risk Factor for Smoking, Risk Factor for Diabetes, Risk Factor for Sedentary Lifestyle and Risk Factor for Depression andHighest Risk: Risk Factor for Dyslipidemia, Risk Factor for Obesity and Risk Factor for Hypertension For Smoking Smoking Risk Guidelines For Dyslipidemia Dyslipidemia Risk Guidelines For Diabetes Mellitus Diabetes Risk Guidelines For Obesity/Overweight Obesity/Overweight Risk Guidelines For Hypertension Hypertension Risk Guidelines For Sedentary Lifestyle Sedentary Lifestyle Risk Guidelines For Depression Depression Risk Guidelines Family History Family History (Updated 05/09/25 @ 10:42 by Jeffry Mills AGRICULTURAL AGENT, AGRICULTURAL AGENT-C) Mother Rheumatoid arthritis Father Myocardial infarction Heart disease, Onset Age: 59 Sudden cardiac Sister Cancer Brother CAD (coronary artery disease), Onset Age: 70 Motivation Motivation to Participate On a scale of 1 to 10, how prepared are you to commit to attending program?: 10 What do you see as barriers to successfully being able to complet (more content not included)... [facility] No Panel InformationOrdered By: Jt Alvares on 05-19-2025 [facility] Cardiac Rehab [address] [place] [address] CR - Individual Treatment Plan MR#: [id number] Acct: [id number] Name: ALBERT ANDRADE Rep #:[id number] : 1960 64 From: Jt Herrera BS, RVT PCP: Dr. Swathi Louis MD DOS: 5 Diagnosis General Information Admitting Diagnosis: PCI w/stent Personal Learning Style:: Audio/Visual Barriers to Learning: Cognitive/Learning Impairment, Cultural/Spiritual, Decreased Motivation, Emotional/Anxiety, Hearing Impairment, Language, Low Literacy, Mental Status, No Barriers, Physical Condition/Sensory Deficit and Vision Impairment Stage of change r/t lifestyle modifications:: Contemplation Gave educational material for:: Treating Heart Disease, How The Heart Works, What it means to have Heart Disease, How Coronary Artery Disease is Diagnosed, Heart Procedures, What Heart Medications Do, Risk Factors & Modifications, Living an Active Life, Nutrition, Emotions & Heart Disease, Stress Management & Relaxation and Sleep Disorders & Heart Disease Education/Goals Cardiac Rehabilitation Goals Personal Goals: Initial Assessment: Improve energy level, Participate in home exercise program, Improve diet and eating habits (eat healthier) and Control risk factors (learn risk factor modification) Scale for measuring improvement of personal goals Diagnosis & Disease Process Outcomes/Goals: Pt IDs own risk factors & lifestyle modifications by Session 10,Verbalizes symptoms of angina & response by session 3., Pt independently managesand Other Additional Outcomes/Goals: Plan/Interventions: Assist Pt to ID & engage in lifestyle modification to reduceCVD risk, Instruct on individual risk factors, Review symptoms of angina & emergency actions, Review secondary diagnosis & identify educational needs. and Other see comment 30 day Reassessments:: Not Met 30 day Reassessments:: Not Met 30 day Reassessments:: Not Met 30 day Reassessments:: Not Met Final Reassessments:: Not Met Safety Referral to Physical Therapy: No Referral to [facility] Case Management: No Fall Risk Assessed:: Yes Assistive Devices:: None Exercise - Initial Assessment Visit Date of Eval: 05/18/25 (initial eval ) Mets: Pre-: >3 METS for 30 minutes by discharge, >5 METS for 30 minutes by discharge, >7 METS for 30 minutes by discharge and Unable to meet goal due to: (see comment below) Physician Prescribed Exercise Modalities: Treadmill, Rower, Schwinn Airdyne AD-7, SciFit Stepper, SynCardia SystemsFit Pro-II Ergometer and SynCardia SystemsFit Lateral Epic Cadence Analyst Frequency: 3x/week for 12 weeks [36 sessions] Intensity: 60-80% of age predicted maximum heart rate reserve Duration: 30 - 45 minutes Current METSs:: 3 Target Heart Rate:: 94-117 Resting Blood Pressure: 113/78 EKG Type: NSR Outcomes & Goals Goals:: Verbalizes understanding of THR, RPE & goal METS by session 6, Documentsin home exercise log/reports 30 min aerobic 5 day/wk by DC, Demonstrates accurate pulse taking by DC and Other additional outcome/goals: see below Intervention & Plan Exercise Program Goals: Instruct on personal THR & RPE, Instruct on MET level & personal MET goal, Show patient to take own pulse /validate performance until accurate, Instruct on home exercise and Other additional plan/int Physical Activity Home Exercise Physical Activity - Home Exercise: Safe Exercise, Warm-up, Self-monitoring, Cool-Down, Home Exercise > 30 min Daily and Sitting Time <3 hours/daily Outcomes & Goals Outcomes/Goals: Demonstrates correct Warm-up/exercise Cool-Down (S3) if = 2.5 METs, Verbalizes symptoms of exercise intolerance by Session 3 (S3), Demonstratesafe equipment use (S3) & follows exercise prescrition (6) and Other: See below Intervention & Plan Plan/Intervention: Instruct warm-up & cool-down if exercising at > 2 METs, Instruct on symptoms of exercise intolerance & actions to take, Instruct & monitor on saf, Assess intial functional capacity & safety risk and Other See below Nutrition - Initial Assessment Program Goals Nutrition Program Goals Patient has diagnosis of Hyperlipidemia (ICD E78)?: Yes Visit Date of Eval: 05/18/25 (initial eval) Cholesterol/Lipids (Other Core Measures) Determine presence & major risk factors that modify LDL goal: Cigarette smoking,Hypertension or hypertensive medication, Low HDL cholesterol <40 mg/dL*, Family history of premature CHD in Male < 55 years: female <65 yearsFa and Age men > 45years; women >/= 55 years Outcomes/Goals: Pt IDs own risk factors & lifestyle modifications by Session 10,Verbalizes symptoms of angina & response by session 3., Pt independently managesand Other Additional Outcomes/Goals: Intervention/Plan: Advocate for lipid panel cholesterol medication if applicable, Instruct on personal lipid levels & lipid goals/NCEP guidelines, Instruct on cholesterol and Other additional plan/int Diabetes (Other Core Measures) Diabetes Type: Not Applicable Weight Mgt (Other Care) Height: 5 ft 9 in Weight:: 249 lb BMI: 36.7 Diagnosis Overweight/Obesity BMI> 30% ICD-10 E66: Yes Diagnosis High BMI/Morbid Obesity BMI (more content not included)... [facility] CR - History AND Physicalon 05-18-2025 CR - History & Physical [facility] Cardiac Rehab [address] [place] [address] CR - History Physical MR#: [id number] Acct: [id number] Name: ALBERT ANDRADE Rep #: [id number] : 1960 64 From: Jt JONES, RVT PCP: Dr. Swathi Louis MD DOS: 05/18/25 CR - History Physical General Arrival date:: 05/18/25 Arrival time:: 08:01 Date of Referral:: 04/30/25 Date of CR Evaluation:: 05/18/25 Referring Physician: Dr. Elliott Primary Diagnosis: PCI w/stent History of Present Cardiac Event Onset Date PTCA or coronary stenting:: Yes (onset 04/30/25) Vessel: RCA Medications Ambulatory Orders ???Medication ???Instructions ???Recorded aspirin 81 mg tablet,delayed 81 mg PO BREAKFAST #0 tabs 5 release atorvastatin 80 mg tablet 80 mg PO QHS #90 tabs 05/09/25 carvedilol 12.5 mg tablet 12.5 mg PO BIDCM #180 tabs 5 clopidogrel 75 mg tablet (Plavix) 75 mg PO DAILY #90 tabs 05/09/25 lisinopril 20 mg tablet 20 mg PO DAILY #90 tabs 05/09/25 multivitamin with minerals-folic tab PO 05/09/25 acid 400 mcg-lycopene 370 mcg tablet (One-A-Day Men's 50 Plus) Allergies Allergies No Known Allergies Allergy (Verified 05/09/25 10:06) Sleep Disorder Evaluation Hx of Sleep Apnea: No Do you snore loudly (louder than talking or can be heard through closed doors)?: No Do you often feel tired/ fatigued/ sleepy during daytime?: No Has anyone observed you stop breathing during sleep?: No History of Hypertension (for STOP score): Yes STOP Results: Negative Advanced Directives Advanced Directives Do you have a Healthcare Power of Loom Overhauler?: No Living Will: No Advance Directives Information Provided: No Advance Directives on File: No DNR Order?:: No Past Medical History Covid-19 Screening Physicial Symptoms Other Clinical Concerns Exposure Risk Pertinent Comorbidities Has a serious heart condition:: Yes Past Medical Illness Past Medical History (Updated 05/17/25 @ 12:57 by Jeffry Mills NP, AGRICULTURAL AGENT-C) Atherosclerotic heart disease of [place] coronary artery without angina pectoris I25.10 Appendicitis K37 History of blood transfusion Z92.89 As a Kidney stones N20.0 Ureteral stent present Z96.0 2010; Past Surgical History Past Surgical History (Updated 05/10/25 @ 00:01 by Daphne Torres) Stented coronary artery (04/30/25) Z95.5 Successful PCI of the proximal RCA using drug-eluting stent 4.5 x 30 mm [place]. History of appendectomy Z90.49 Family History Summary Family History (Updated 05/09/25 @ 10:42 by Jeffry Mills NP, AGRICULTURAL AGENT-C) Mother Rheumatoid arthritis Father Myocardial infarction Heart disease, Onset Age: 59 at 79 Sudden cardiac Sister Cancer Brother CAD (coronary artery disease), Onset Age: 70 Social History Smoking History Smoking Status: Never smoker Alcohol Use Alcohol Usage: No Occupation Occupation (List type of work in comments):: Employed Hours worked per day:: 8 Social Environment Status Marital Status: Current Living Arrangements Living Environment:: Spouse Children How many children do you have?: 3 Do any of your children live nearby?: Yes Safety Do you feel safe in your surroundings?: Yes Assistance Do you need any assistance at home?: no Review of Systems Review of Systems Hints Review of Present Symptoms: Reports Fatigue, Appetite - Normal, Appetite - Special Diet and Sleep - Normal; Denies Shortness of Breath at Rest, Shortness of Breath with Exertion, PVD, Operative Discomfort, Angina, Wound Healing, Dizziness/Lightheaded ness, Heart Arrhythmia/Irregulari ties or Sexual Changes Pain Is Patient Pain Free?: Yes Risk Factor Assessment Chief Complaint Chief Complaint: PCI w/stent Vital Signs Blood Pressure: 113/78 Pulse Pulse Rate: 62 Hypertension Blood Pressure Sitting - Right Arm: 113/78 Obesity Height: 5 ft 9 in Weight:: 249 lb Weight in Pounds: 249.0 lbs Body Mass Index (BMI): 36.7 Nutritional Referral for Obesity: No Physical Inactivity Physical Inactivity: Reg Exercise 30 min/day Risk Stratification Risk Guidelines: Moderate Risk: Risk Factor for Smoking, Risk Factor for Diabetes, Risk Factor for Sedentary Lifestyle and Risk Factor for Depression and Highest Risk: Risk Factor for Dyslipidemia, Risk Factor for Obesity and Risk Factor for Hypertension For Smoking Smoking Risk Guidelines For Dyslipidemia Dyslipidemia Risk Guidelines For Diabetes Mellitus Diabetes Risk Guidelines For Obesity/Overweight Obesity/Overweight Risk Guidelines For Hypertension Hypertension Risk Guidelines For Sedentary Lifestyle Sedentary Lifestyle Risk Guidelines For Depression Depression Risk Guidelines Family History Family History (Updated 05/09/25 @ 10:42 by Jeffry Mills NP, LUCERO) Mother Rheumatoid arthritis Father Myocardial infarction Heart dis (more content not included)... Normal [facility] Cardiology Visit Reporton Cardiology Visit Report [facility] [address] [place] [address] OFFICE VISIT Date of Service: 05/09/25 MR#: [id number] Acct: [id number] Name: ALBERT ANDRADE Rep #: [id number] : 1960 Provider: LUCERO dupree Age/Sex: 64/M Location: [facility] [place].[facility] Status: Signed HPI HPI History of Present Illness Details: This is a 64-year-old male who presents to the office today for a posthospital follow-up. He was evaluated [facility] April 2025 for chest pain. He underwent drug-eluting stent to proximal RCA. Mid LAD showed 70% stenosis, large diagonal branch with 90% stenosis, and LCx as nonobstructive with 40% stenosis. Echocardiogram showed LV function 65 to 70% with inferior hypokinesia. It was recommended to undergo staged intervention to proximal and mid LAD. His Brilinta was changed to Plavix due to shortness of breath prior to discharge. He denies chest, arm, jaw, or neck discomfort. He denies palpitations. He denies bilateral lower extremity edema. He denies claudication. He denies shortness of breath with activity, shortness of breath at rest, orthopnea, or PND. He denies chronic cough. He denies significant, sudden weight gain. He denies lightheadedness, dizziness, near-syncope, or syncope. He denies blood in urine, blood in stool, or epistaxis. He denies fever with chills. He denies myalgia. He states fatigue. His exercise level has remained stable. 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 Accompanied by: Is patient in pain?: No Allergies No Known Allergies Allergy (Verified 05/09/25 10:06) Medications ???Medication ???Instructions ???Recorded ???Confirmed ???Type aspirin 81 mg tablet,delayed 81 mg PO BREAKFAST #0 tabs 5 05/09/25 Rx release atorvastatin 80 mg tablet 80 mg PO QHS #90 tabs 05/09/2511/28 Rx carvedilol 12.5 mg tablet 12.5 mg PO BIDCM #180 tabs 5 05/09/25 Rx clopidogrel 75 mg tablet (Plavix) 75 mg PO DAILY #90 tabs 05/09/25 05/09/25 Rx lisinopril 20 mg tablet 20 mg PO DAILY #90 tabs 05/09/25 0 05/09/25 Rx multivitamin with minerals-folic tab PO 05/09/25 05/09/25 History acid 400 mcg-lycopene 370 mcg tablet (One-A-Day Men's 50 Plus) Ejection fraction %: 60 Have you fallen in the past year?: No PFSH Medical History (Updated 05/17/25 @ 12:57 by Jeffry Mills AGRICULTURAL AGENT, AGRICULTURAL AGENT-C) Atherosclerotic heart disease of [place] coronary artery without angina pectoris Appendicitis History of blood transfusion Kidney stones Ureteral stent present Surgical History (Updated 05/10/25 @ 00:01 by Daphne Torres) Stented coronary artery (04/30/25) History of appendectomy Family History (Updated 05/09/25 @ 10:42 by Jeffry Mills NP, AGRICULTURAL AGENT-C) Mother Rheumatoid arthritis Father Myocardial infarction Heart disease, Onset Age: 59 at 79 Sudden cardiac Sister Cancer Brother CAD (coronary artery disease), Onset Age: 70 Social History (Updated 05/09/25 @ 10:13 by Elisha Mahmood) household members: spouse Smoking Status: Never smoker alcohol intake: never substance use type: does not use caffeine: No ROS Const Const: Positive for fatigue (Gets tired a little easier); Negative for weakness Eyes Eyes: Negative for change in vision ENT ENT: Negative for dizziness or balance problems Cardio Chest Pain: No Palpitations: No Edema: None Muscle aches with walking: None Resp Respiratory: Negative for SOB with activity, SOB at rest or SOB orthopnea SOB lying down GI GI: Negative nausea or heartburn : Negative for hematuria or frequent nighttime urination/ nocturia Musc Musc: Negative for balance problems Skin Skin: Negative non-healing lesions or rash Neuro Neuro: Negative for dizziness, lightheadedness, near syncope, syncope or weakness Endo Endo: Positive for fatigue (Gets tired a little easier) Allergy Allergy/Immunology: Negative for rash Cardiology Exam Const Appearance: cooperative, healthy appearing, comfortable and no acute distress Nutritional Appearance: well nourished and obese Orientation: alert, awake and oriented x3 Head Head: normal to inspection Ears: hearing grossly normal bilaterally Nose: external nose normal Face and Sinus: face symmetric Mouth: moist mucous membranes Eyes General: appearance normal, both eyes and all related structures Eyelids: eyelids normal EOM: EOM intact bilaterally Neck Neck: normal visual inspection and no JVD Carotids: normal carotid upstroke Chest Chest inspection: normal inspection of the chest, s (more content not included)... Normal [facility] 12 Lead EKGon 05-02-2025 12 Lead EKG [facility] Cardiovascular Services [address] [place] [address] 12 Lead EKG 05/02/25 0555 MR#: [id number] Acct: [id number] Name: ALBERT ANDRADE Rep #: [id number] : 1960 64 From: Michael Elliott MD Attending Dr: Dr. Deepti Melchor DO Status: ADM I N Ordering Dr: Michael Elliott MD Date: 05/02/25 Location: [facility] Sex: M C Admitted: 04/30/25 Test Reason : AM EKG Blood Pressure : */* mmHG Vent. Rate : 83 BPM Atrial Rate : 83 BPM P-R Int : 156 ms QRS Dur : 98 ms QT Int : 402 ms P-R-T Axes : 45 -24 -6 degrees QTcB Int : 472 ms Normal sinus rhythm Minimal voltage criteria for LVH, may be normal variant ( R in aVL ) Inferior infarct (cited on or before 01-May-2025) Abnormal ECG When compared with ECG of 01-May-2025 04:52, No significant change was found Confirmed by MICHAEL ELLIOTT ([id number]), editor dictionary TENZIN URBINA ([id number]) on 05/02/2025 2:00:50 PM Referred By: Michael Elliott Confirmed By: MICHAEL ELLIOTT 05/02/25 1400 Date Michael Elliott MD CC: Dr. Michael Elliott MD; Dr. Deepti Melchor DO; No Primary Care Physician Signed Normal [facility] Absolute lymphocyte countOrd ered By: Deepti Melchor on 05-02-2025 Lymphocytes Auto (Unsp spec) [#/Vol] 2.70 10*3/uL 0.83-4.51 [facility] Absolute neutrophil countOrd ered By: Deepti Melchor on 05-02-2025 Neutrophils (Bld) [#/Vol] 7.5 10*3/uL 2.0-7.7 [facility] Anion gap in Serum or Plasma Ordered By: Deepti Melchor on 05-02-2025 Anion gap [Moles/Vol] 12 mmol/L 5- [facility] Automated lymphocyte count a s percentage of total leukocytesOrdered By: Deepti Melchor on 05-02-2025 Lymphocytes/100 WBC Auto (Unsp spec) 24.1 % [facility] BUN/creatinine ratioOrdered By: Deepti Melchor on 05-02-2025 Urea nitrogen/Creatinine [Mass ratio] 16.8 mg/mg - [facility] Basic Metabolic Profile (BMP )on 05-02-2025 BUN/CRE 16.8 RATIO Normal 06-25 [facility] Comment on above: Performed By: #### L 500.2500, L501.5200, L501.2300, L100.0100 ####[facility] [address] [place], [address] Calcium [Mass/Vol] 8.3 mg/dL Normal 7.6-11.0 [facility] Comment on above: Performed By: #### L 500.2500, L501.5200, L501.2300, L100.0100 ####[facility] [address] [place], [address] Chloride [Moles/Vol] 107 mmol/L Normal 98-108 [facility] Comment on above: Performed By: #### L 500.2500, L501.5200, L501.2300, L100.0100 ####[facility] [address] [place], [address] CO2 [Moles/Vol] 18.8 mmol/L Low 21.0-32.0 [facility] Comment on above: Performed By: #### L 500.2500, L501.5200, L501.2300, L100.0100 ####[facility] [address] [place], [address] Creatinine [Mass/Vol] 0.80 mg/dL Normal 0.70-1.20 [facility] Comment on above: Performed By: #### L 500.2500, L501.5200, L501.2300, L100.0100 ####[facility] [address] [place], [address] ECRCL 117.40 ml/min Normal 50-250 [facility] Comment on above: Performed By: #### L 500.2500, L501.5200, L501.2300, L100.0100 ####[facility] [address] [place], [address] GAP 12 Normal 5-15 [facility] Comment on above: Performed By: #### L 500.2500, L501.5200, L501.2300, L100.0100 ####[facility] [address] [place], [address] GFR/1.73 sq M.predicted among non-blacks MDRD (S/P/Bld) [Vol rate/Area] 99 mL/min/{1.73_m2} Normal >60 [facility] Comment on above: Result Comment: mL/m in/1.73m2 CKD-EPI Creatinine Equation (2020) Performed By: #### L 500.2500, L501.5200, L501.2300, L100.0100 ####[facility] [address] [place], [address] Glucose [Mass/Vol] 104 mg/dL High 70-99 [facility] Comment on above: Performed By: #### L 500.2500, L501.5200, L501.2300, L100.0100 ####[facility] [address] [place], [address] Potassium [Moles/Vol] 3.8 mmol/L Normal 3.3-5.1 [facility] Comment on above: Result Comment: Hemo lysis present, Results??could be affected. ?? Performed By: #### L 500.2500, L501.5200, L501.2300, L100.0100 ####[facility] [address] [place], [address] Sodium [Moles/Vol] 137 mmol/L Normal 133-145 [facility] Comment on above: Performed By: #### L 500.2500, L501.5200, L501.2300, L100.0100 ####[facility] [address] [place], [address] Urea nitrogen [Mass/Vol] 14 mg/dL Normal 4-19 [facility] Comment on above: Performed By: #### L 500.2500, L501.5200, L501.2300, L100.0100 ####[facility] [address] [place], [address] Basophil percentageOrdered B y: Deepti Melchor on 05-02-2025 Basophils/100 WBC (Bld) 0.4 % 0-1 [facility] CBC W/Diff, Automatedon 04-07 Absolute Lymph 2.70 X10 3/uL Normal 0.83-4.51 [facility] Comment on above: Performed By: #### L 500.2500, L501.5200, L501.2300, L100.0100 ####[facility] [address] [place], [address] Absolute Neut 7.5 X10 3/uL Normal 2.0-7.7 [facility] Comment on above: Performed By: #### L 500.2500, L501.5200, L501.2300, L100.0100 ####[facility] [address] [place], [address] Basophils/100 WBC (Bld) 0.4 % Normal 0-1 [facility] Comment on above: Performed By: #### L 500.2500, L501.5200, L501.2300, L100.0100 ####[facility] [address] [place], [address] Eosinophils/100 WBC (Bld) 0.6 % Normal 0-5 [facility] Comment on above: Performed By: #### L 500.2500, L501.5200, L501.2300, L100.0100 ####[facility] [address] [place], [address] Erythrocyte distribution width (RBC) [Ratio] 14.3 % Normal 11.6-14.6 [facility] Comment on above: Performed By: #### L 500.2500, L501.5200, L501.2300, L100.0100 ####[facility] [address] [place], [address] Hematocrit (Bld) [Volume fraction] 39.3 % Low 40-54 [facility] Comment on above: Performed By: #### L 500.2500, L501.5200, L501.2300, L100.0100 ####[facility] [address] [place], [address] Hemoglobin (Bld) [Mass/Vol] 13.3 g/dL Normal 13.0-16.5 [facility] Comment on above: Performed By: #### L 500.2500, L501.5200, L501.2300, L100.0100 ####[facility] [address] [place], [address] IG% 0.500 Normal 0.0-0.9 [facility] Comment on above: Result Comment: IG% - Immature Granulocytes (promyelocytes, myelocytes and metamyelocytes) > 1% indicates that a LEFT SHIFT is Present. Performed By: #### L 500.2500, L501.5200, L501.2300, L100.0100 ####[facility] [address] [place], [address] Lymphocytes/100 WBC (Bld) 24.1 % Normal 19-41 [facility] Comment on above: Performed By: #### L 500.2500, L501.5200, L501.2300, L100.0100 ####[facility] [address] [place], [address] MCH (RBC) [Entitic mass] 29.0 pg Normal 27.0-32.0 [facility] Comment on above: Performed By: #### L 500.2500, L501.5200, L501.2300, L100.0100 ####[facility] [address] [place], [address] MCHC (RBC) [Mass/Vol] 33.8 g/dL Normal 32-36 [facility] Comment on above: Performed By: #### L 500.2500, L501.5200, L501.2300, L100.0100 ####[facility] [address] [place], [address] MCV (RBC) [Entitic vol] 85.8 fL Normal 80-94 [facility] Comment on above: Performed By: #### L 500.2500, L501.5200, L501.2300, L100.0100 ####[facility] [address] [place], [address] Monocytes/100 WBC (Bld) 7.4 % Normal 0-10 [facility] Comment on above: Performed By: #### L 500.2500, L501.5200, L501.2300, L100.0100 ####[facility] [address] [place], [address] Neutrophils/100 WBC (Bld) 67.0 % Normal 47-70 [facility] Comment on above: Performed By: #### L 500.2500, L501.5200, L501.2300, L100.0100 ####[facility] [address] [place], [address] Nucleated RBC (Bld) [#/Vol] 0 10*3/uL Normal 0-5 [facility] Comment on above: Performed By: #### L 500.2500, L501.5200, L501.2300, L100.0100 ####[facility] [address] [place], [address] Platelet mean volume (Bld) [Entitic vol] 9.9 fL Normal 6.2-12.0 [facility] Comment on above: Performed By: #### L 500.2500, L501.5200, L501.2300, L100.0100 ####[facility] [address] [place], [address] Platelets (Bld) [#/Vol] 195 10*3/uL Normal 150-450 [facility] Comment on above: Performed By: #### L 500.2500, L501.5200, L501.2300, L100.0100 ####[facility] [address] [place], [address] RBC (Bld) [#/Vol] 4.58 10*6/uL Low 4.6-6.2 [facility] Comment on above: Performed By: #### L 500.2500, L501.5200, L501.2300, L100.0100 ####[facility] [address] [place], [address] RDW SD 44.7 fl High 35.1-43.9 [facility] Comment on above: Performed By: #### L 500.2500, L501.5200, L501.2300, L100.0100 ####[facility] [address] [place], [address] WBC (Bld) [#/Vol] 11.2 10*3/uL High 4.4-11.0 [facility] Comment on above: Performed By: #### L 500.2500, L501.5200, L501.2300, L100.0100 ####[facility] [address] [place], [address] Carbon dioxide, total [Moles /volume] in Central venous bloodOrdered By: Deepti Melchor on 05-02-2025 CO2 [Moles/Vol] 18.8 mmol/L Low 21.0-32.0 [facility] Chloride assayOrdered By: Ashley Melchor on 05-02-2025 Chloride [Moles/Vol] 107 mmol/L 98-108 [facility] Electrocardiogram reportOrde red By: Michael Elliott on 05-02-2025 EKG study [facility] Cardiovascular Services [address] [place] [address] 12 Lead EKG 05/02/25 0555 MR#: [id number] Acct: [id number] Name: ALBERT ANDRADE Rep #:[id number] : 1960 64 From: Michael Elliott MD Attending Dr: DO Rc Bazan tatus: ADM IN Ordering Dr: Michael Elliott MD Date: Location: [facility] Sex: M C Admitted: 04/30/25 Test Reason : AM EKG Blood Pressure : */* mmHG Vent. Rate : 83 BPM Atrial Rate : 83 BPM P-R Int : 156 ms QRS Dur : 98 ms QT Int : 402 ms P-R-T Axes : 45 -24 -6 degrees QTcB Int : 472 ms Normal sinus rhythm Minimal voltage criteria for LVH, may be normal variant ( R in aVL ) Inferior infarct (cited on or before 01-May-2025) Abnormal ECG When compared with ECG of 01-May-2025 04:52, No significant change was found Confirmed by MICHAEL ELLIOTT ([id number]), editor dictionary TENZIN URBINA ([id number]) on 05/02/2025 2:00:50 PM Referred By: Michael Elliott Confirmed By: MICHAEL ELLIOTT 05/02/25 1400 Date _ Michael Elliott MD CC: Dr. Michael Elliott MD; Dr. Deepti Melchor DO; No Primary Care Physician ~ Signed [facility] Work Phone: EKG study [facility] Cardiovascular Services [address] [place] [address] 12 Lead EKG 04/30/25 1303 MR#: [id number] Acct: [id number] Name: ALBERT ANDRADE Rep #:[id number] : 1960 64 From: Michael Elliott MD Attending Dr: Dr. Deepti Melchor DO S tatus: ADM IN Ordering Dr: David Keene MD Date: 04/30 Location: [facility] Sex: M C Admitted: 04/30/25 Test Reason : CP Blood Pressure : */* mmHG Vent. Rate : 104 BPM Atrial Rate : 104 BPM P-R Int : 152 ms QRS Dur : 102 ms QT Int : 364 ms P-R-T Axes : 57 10 58 degrees QTcB Int : 478 ms Critical Test Result: STEMI Sinus tachycardia with frequent Premature ventricular complexes in a pattern of bigeminy ST elevation consider inferior injury or acute infarct ACUTE IL / STEMI Consider right ventricular involvement in acute inferior infarct Abnormal ECG When compared with ECG of 23-Mar-2012 15:11, Premature ventricular complexes are now Present ST elevation now present in Inferior leads ST now depressed in Anterolateral leads Confirmed by MICHAEL ELLIOTT ([id number]), editor dictionary TENZIN URBINA ([id number]) on 05/02/2025 1:57:34 PM Referred By: Michael Elliott Confirmed By: MICHAEL ELLIOTT 05/02/25 1357 Date _ Michael Elliott MD CC: Dr. Michael Elliott MD; Dr. Deepti Melchor DO; Dr. David Keene MD; No Primary Care Physician ~ Signed [facility] Work Phone: Eosinophil percentageOrdered By: Deepti Melchor on 05-02-2025 Eosinophils/100 WBC (Bld) 0.6 % 0-5 [facility] Erythrocyte distribution wid th ratioOrdered By: Deepti Melchor on 05-02-2025 Erythrocyte distribution width (RBC) [Ratio] 14.3 % 11.6-14.6 [facility] Erythrocyte distribution wid th standard deviationOrdered By: Deepti Melchor on 05-02-2025 Erythrocyte distribution width (RBC) [Ratio] 44.7 fl High 35.1-43.9 [facility] Glomerular filtration rate ( GFR) estimation/1.73 sq m using serum, plasma, or whole bOrdered By: Deepti Melchor on 05-02-2025 GFR/1.73 sq M.predicted among non-blacks MDRD (S/P/Bld) [Vol rate/Area] 99 mL/min/{1.73_m2} >60 [facility] Comment on above: mL/min/1.73m2 CKD-EP I Creatinine Equation (2020) Hematocrit Auto (Bld) [Volum e fraction]Ordered By: Deepti Melchor on 05-02-2025 Hematocrit (Bld) [Volume fraction] 39.3 % Low 40-54 [facility] Hemoglobin measurementOrdere d By: Deepti Melchor on 05-02-2025 Hemoglobin (Bld) [Mass/Vol] 13.3 g/dL 13.0-16.5 [facility] Immature granulocytes/100 WB C Auto (Bld)Ordered By: Deepti Melchor on 05-02-2025 Immature granulocytes/100 WBC (Bld) 0.500 % 0.0-0.9 [facility] Comment on above: IG% - Immature Granu locytes (promyelocytes, myelocytes and metamyelocytes) > 1% indicates that a LEFT SHIFT is Present. MCV (mean corpuscular volume ) determinationOrdered By: Deepti Melchor on 05-02-2025 MCV (RBC) [Entitic vol] 85.8 fL 80-94 [facility] Magnesiumon 05-02-2025 Magnesium [Mass/Vol] 2.3 mg/dL High 1.5-2.2 [facility] Comment on above: Performed By: #### L 500.2500, L501.5200, L501.2300, L100.0100 ####[facility] [address] [place], [place], [address] Magnesium measurement (mass/ volume)Ordered By: Deepti Melchor on 05-02-2025 Magnesium (Unsp spec) [Mass/Vol] 2.3 mg/dL High 1.5-2.2 [facility] Mean corpuscular hemoglobin (MCH) determinationOrdered By: Deepti Melchor on 05-02-2025 MCH (RBC) [Entitic mass] 29.0 pg 27.0-32.0 [facility] Mean corpuscular hemoglobin concentration (MCHC) determinationOrdered By: Deepti Melchor on 05-02-2025 MCHC (RBC) [Mass/Vol] 33.8 g/dL 32-36 [facility] Mean platelet volume determi nationOrdered By: Deepti Melchor on 05-02-2025 Platelet mean volume (Bld) [Entitic vol] 9.9 fL 6.2-12.0 [facility] Monocyte percentageOrdered B y: Deepti Melchor on 05-02-2025 Monocytes/100 WBC (Bld) 7.4 % 0-10 [facility] Neutrophil percentageOrdered By: Deepti Melchor on 05-02-2025 Neutrophils/100 WBC (Bld) 67.0 % 47-70 [facility] Nucleated red blood cell per centageOrdered By: Deepti Melchor on 05-02-2025 Nucleated RBC/100 WBC (Bld) [Ratio] 0 % 0-5 [facility] Phosphoruson 05-02-2025 Phosphate [Mass/Vol] 1.7 mg/dL Low 2.7-4.5 [facility] Comment on above: Performed By: #### L 500.2500, L501.5200, L501.2300, L100.0100 ####[facility] [address] [place], [address] Platelet countOrdered By: Ashley Melchor on 08-27-2025 Platelets (Bld) [#/Vol] 195 10*3/uL 150-450 [facility] Potassium measurement (mass/ volume)Ordered By: Deepti Melchor on 05-02-2025 Potassium (Unsp spec) [Mass/Vol] 3.8 mmol/L 3.3-5.1 [facility] Comment on above: Hemolysis present, R esults could be affected. RBC Auto (Bld) [#/Vol]Ordere d By: Deepti Melchor on 05-02-2025 RBC (Bld) [#/Vol] 4.58 10*6/uL Low 4.6-6.2 [facility] Serum creatinine measurement (mass/volume)Ordered By: Deepti Melchor on 05-02-2025 Creatinine [Mass/Vol] 0.80 mg/dL 0.70-1.20 [facility] Serum glucose measurement (m ass/volume)Ordered By: Deepti Melchor on 05-02-2025 Glucose [Mass/Vol] 104 mg/dL High 70-99 [facility] Serum or plasma calcium ayleen urement (mass/volume)Ordered By: Deepti Melchor on 05-02-2025 Calcium [Mass/Vol] 8.3 mg/dL 7.6-11.0 [facility] Serum or plasma urea nitroge n measurement (mass/volume)Ordered By: Deepti Melchor on 05-02-2025 Urea nitrogen [Mass/Vol] 14 mg/dL 4-19 [facility] Sodium levelOrdered By: Lynda Melchor on 05-02-2025 Sodium [Moles/Vol] 137 mmol/L 133-145 [facility] White blood cell (WBC) count Ordered By: Deepti Melchor on 05-02-2025 WBC (Bld) [#/Vol] 11.2 10*3/uL High 4.4-11.0 [facility] Bilirubin, totalOrdered By: Michael Elliott on 05-01-2025 Bilirubin [Mass/Vol] 0.76 mg/dL 0.00-1.30 [facility] CBC-Complete Blood Cnt No Di ffon 05-01-2025 Erythrocyte distribution width (RBC) [Ratio] 14.1 % Normal 11.6-14.6 [facility] Comment on above: Performed By: #### L 100.0500, L500.4050, L501.9520, L500.4100 ####[facility] [address] [place], [address] Hematocrit (Bld) [Volume fraction] 38.5 % Low 40-54 [facility] Comment on above: Performed By: #### L 100.0500, L500.4050, L501.9520, L500.4100 ####[facility] [address] [place], [address] Hemoglobin (Bld) [Mass/Vol] 13.0 g/dL Normal 13.0-16.5 [facility] Comment on above: Performed By: #### L 100.0500, L500.4050, L501.9520, L500.4100 ####[facility] [address] [place], [address] MCH (RBC) [Entitic mass] 29.1 pg Normal 27.0-32.0 [facility] Comment on above: Performed By: #### L 100.0500, L500.4050, L501.9520, L500.4100 ####[facility] [address] [place], [address] MCHC (RBC) [Mass/Vol] 33.8 g/dL Normal 32-36 [facility] Comment on above: Performed By: #### L 100.0500, L500.4050, L501.9520, L500.4100 ####[facility] [address] [place], [address] MCV (RBC) [Entitic vol] 86.1 fL Normal 80-94 [facility] Comment on above: Performed By: #### L 100.0500, L500.4050, L501.9520, L500.4100 ####[facility] [address] [place], [address] Platelet mean volume (Bld) [Entitic vol] 9.7 fL Normal 6.2-12.0 [facility] Comment on above: Performed By: #### L 100.0500, L500.4050, L501.9520, L500.4100 ####[facility] [address] [place], [address] Platelets (Bld) [#/Vol] 224 10*3/uL Normal 150-450 [facility] Comment on above: Performed By: #### L 100.0500, L500.4050, L501.9520, L500.4100 ####[facility] [address] [place], [address] RBC (Bld) [#/Vol] 4.47 10*6/uL Low 4.6-6.2 [facility] Comment on above: Performed By: #### L 100.0500, L500.4050, L501.9520, L500.4100 ####[facility] [address] [place], [address] RDW SD 44.4 fl High 35.1-43.9 [facility] Comment on above: Performed By: #### L 100.0500, L500.4050, L501.9520, L500.4100 ####[facility] [address] [place], [address] WBC (Bld) [#/Vol] 14.6 10*3/uL High 4.4-11.0 [facility] Comment on above: Performed By: #### L 100.0500, L500.4050, L501.9520, L500.4100 ####[facility] [address] [place], [address] Calculated very low density lipoprotein (VLDL) cholesterol measurementOrdered By: Anaid Zavala on 05-01-2025 Calculated very low density lipoprotein (VLDL) cholesterol measurement 20 mg/dL 5-40 [facility] Cardiac rehabilitation repor tOrdered By: Aldair Delgadillo on 05-01-2025 Study report [facility] Cardiac Rehab [address] [place] [address] CR: Phase I Assessment MR#: [id number] Acct: [id number] Name: ALBERT ANDRADE Rep #:[id number] : 1960 64 From: Aldair Delgadillo PCP: Care Physician,No Primary DOS: 04/30/25 Patient Communication Patient Information PHII Cardiac Rehab Discussed with Patient:: Yes Guide to Cardiac Rehab Given to Patient:: Yes Cardiac Rehab Facility Choice List Given to Patient:: Yes Communication to Cardiac Rehab Choice Program [facility] CR PHII:: Communication Given to CR Public Defender:: Michael Elliott Phase II Cardiac Rehab:: Yes Sessions:: 36 sessions - 3 days/wk, 12 weeks Cardiac Rehabilitation Info Program Information Cardiac Rehabilitation Program Information: Cardiac Rehab The cardiac rehab team at [facility] consists of highly skilled exercise physiologists, nurses, respiratory therapists and physicians working together with you. Our purpose is to help you have a full recovery and achieve the goals you set for yourself. Over the years many of our patients have returned to activities they assumed they would never do again! We can help restore your confidence and motivation to make lifestyle changes that can have a significant impact on your health and quality of life! We can help answer questions and concerns you may have about exercise, lifestyle, medications, diet, stress and anxiety which are common following a hospitalization. WE monitor ECG and vital signs during exercise and discuss your progress with you and report toyour physician(s). Cardiac Rehab is proven to help reduce readmissions, improve functional capacityand lower recurrence of problems with your heart. Our Cardiac Rehab program is Certified by the [place] [employer] Pulmonary [employer] (AACVPR) and Accredited by the [employer] through our [facility]. You can contact us at . We invite you to call us with your questions or to get started in our program. If you have other questions or concerns be sure to ask your physician/provider during your follow-up visit. WE look forward to seeing you! 05/01/25 0750 Date Aldair W Elie Outcome assessment reviewed. Exercise plan approved as documented. Treatment plan and goals support patient needs/abilities. Continue with current plan. I certify the patient demonstrates improvement and remains willing and capable of participation. the patient continues to benefit from cardiac rehab services/training. The patient may continue at current intensity, endurance andmodality and progress per protocol. Cosigner Signature: Date CC: ~ Signed [facility] Comprehensive Metabolic Prof ilon 05-01-2025 Albumin [Mass/Vol] 3.9 g/dL Normal 3.4-4.8 [facility] Comment on above: Performed By: #### L 100.0500, L500.4050, L501.9520, L500.4100 ####[facility] [address] [place], [address] Albumin/Globulin [Mass ratio] 1.6 {ratio} Normal 0.9-2.4 [facility] Comment on above: Performed By: #### L 100.0500, L500.4050, L501.9520, L500.4100 ####[facility] [address] [place], [address] ALK PHOS 64 U/L Normal 40-129 [facility] Comment on above: Performed By: #### L 100.0500, L500.4050, L501.9520, L500.4100 ####[facility] [address] [place], [address] ALT [Catalytic activity/Vol] 24 U/L Normal <=46 [facility] Comment on above: Performed By: #### L 100.0500, L500.4050, L501.9520, L500.4100 ####[facility] [address] [place], [address] AST [Catalytic activity/Vol] 73 U/L High <=37 [facility] Comment on above: Performed By: #### L 100.0500, L500.4050, L501.9520, L500.4100 ####[facility] [address] [place], [address] Bilirubin [Mass/Vol] 0.76 mg/dL Normal 0.00-1.30 [facility] Comment on above: Performed By: #### L 100.0500, L500.4050, L501.9520, L500.4100 ####[facility] [address] [place], [address] BUN/CRE 12.8 RATIO Normal 10-20 [facility] Comment on above: Performed By: #### L 100.0500, L500.4050, L501.9520, L500.4100 ####[facility] [address] [place], [address] Calcium [Mass/Vol] 8.4 mg/dL Normal 7.6-11.0 [facility] Comment on above: Performed By: #### L 100.0500, L500.4050, L501.9520, L500.4100 ####[facility] [address] [place], [address] Chloride [Moles/Vol] 109 mmol/L High 98-108 [facility] Comment on above: Performed By: #### L 100.0500, L500.4050, L501.9520, L500.4100 ####[facility] [address] [place], [address] CO2 [Moles/Vol] 21.4 mmol/L Normal 21.0-32.0 [facility] Comment on above: Performed By: #### L 100.0500, L500.4050, L501.9520, L500.4100 ####[facility] [address] [place], [address] Creatinine [Mass/Vol] 0.87 mg/dL Normal 0.70-1.20 [facility] Comment on above: Performed By: #### L 100.0500, L500.4050, L501.9520, L500.4100 ####[facility] [address] [place], [address] ECRCL 108.73 ml/min Normal 50-250 [facility] Comment on above: Performed By: #### L 100.0500, L500.4050, L501.9520, L500.4100 ####[facility] [address] [place], [address] GAP 10 Normal 5-15 [facility] Comment on above: Performed By: #### L 100.0500, L500.4050, L501.9520, L500.4100 ####[facility] [address] [place], [address] GFR/1.73 sq M.predicted among non-blacks MDRD (S/P/Bld) [Vol rate/Area] 96 mL/min/{1.73_m2} Normal >60 [facility] Comment on above: Result Comment: mL/m in/1.73m2 CKD-EPI Creatinine Equation (2020) Performed By: #### L 100.0500, L500.4050, L501.9520, L500.4100 ####[facility] [address] [place], [address] Globulin (S) [Mass/Vol] 2.4 g/dL Normal 2.2-4.2 [facility] Comment on above: Performed By: #### L 100.0500, L500.4050, L501.9520, L500.4100 ####[facility] [address] [place], [address] Glucose [Mass/Vol] 116 mg/dL High 70-99 [facility] Comment on above: Performed By: #### L 100.0500, L500.4050, L501.9520, L500.4100 ####[facility] [address] [place], [address] Potassium [Moles/Vol] 3.6 mmol/L Normal 3.3-5.1 [facility] Comment on above: Performed By: #### L 100.0500, L500.4050, L501.9520, L500.4100 ####[facility] [address] [place], [address] Sodium [Moles/Vol] 141 mmol/L Normal 133-145 [facility] Comment on above: Performed By: #### L 100.0500, L500.4050, L501.9520, L500.4100 ####[facility] [address] [place], [address] T PROT 6.3 g/dL Normal 5.9-8.4 [facility] Comment on above: Performed By: #### L 100.0500, L500.4050, L501.9520, L500.4100 ####[facility] [address] [place], [address] Urea nitrogen [Mass/Vol] 11 mg/dL Normal 4-19 [facility] Comment on above: Performed By: #### L 100.0500, L500.4050, L501.9520, L500.4100 ####[facility] [address] [place], [address] Echocardiogram study reportO rdered By: Michael Elliott on 05-01-2025 Study report [facility] Cardiovascular Services [address] [place] [address] Echo Complete 05/01/25 1010 MR#: [id number] Acct: [id number] Name: ALBERT ANDRADE Rep #:[id number] : 1960 64 From: Michael Elliott MD Attending Dr: DO Rc Bazan tatus: ADM IN Ordering Dr: Anaid Zavala MD Date: Location: ICU Sex: M C Admitted: 04/30/25 Reason For Study Reason For Study: CHEST PAIN Procedure This was a 2D Doppler, Color Flow transthoracic echocardiogram. Myocardial strain analysis was performed in this exam to aid in the assessment of cardiac function. Exam performed portable in ICU/CCU. Left Ventricle Normal LV size. The estimated ejection fraction is 60 %. Stage 1 diastolic dysfunction. Mild hypokensis of the inferior wall. Right Ventricle Normal RV size. Normal systolic function. Atria Normal left atrium. Normal right atrium. Mitral Valve The mitral valve is structurally normal. No prolapse or stenosis seen. Mild (1+)mitral valve insufficiency. Tricuspid Valve Normal tricuspid valve. Trivial tricuspid valve insufficiency. Pulmonary artery systolic pressure is 20 mmHg. Aortic Valve Trisinus/trileaflet aortic valve. Mild focal aortic valve thickening. There is no aortic stenosis. Pulmonic Valve Normal pulmonic valve. Trivial pulmonic valve insufficiency. Great Vessels Normal sized aortic root. Pericardium/Pleural No pericardial effusion. MMode/2D Measurements & Calculations LVIDd: 4.8 cm IVSd: 1.1 cm LVOT diam: 2.2 cm LVIDs: 3.3 cm LVPWd: 1.0 cm LVOT area: 3.8 cm2 RVDd: 3.7 cm FS: 32.2 % asc Aorta Diam: 3.6 cm LAV(MOD-bp): 48.0 ml LVAd ap4: 27.7 cm2 LAV(MOD-bp) Indexed: 20.8 ml/m2 LVLd ap4: 8.2 cm LAV(MOD-sp2): 59.1 ml EDV(MOD-sp4): 76.3 ml LAV(MOD-sp4): 40.2 ml EDV(sp4-el): 79.3 ml LVAs ap4: 14.6 cm2 LVLs ap4: 6.6 cm ESV(MOD-sp4): 27.1 ml ESV(sp4-el): 27.6 ml EF(MOD-sp4): 64.5 % EF(sp4-el): 65.2 % LVAd ap2: 23.1 cm2 SV(MOD-sp4): 49.2 ml SV(MOD-sp2): 30.5 ml LVLd ap2: 8.2 cm SI(MOD-sp4): 21.3 ml/m2 SI(MOD-sp2): 13.2 ml/m2 EDV(MOD-sp2): 55.5 ml EDV(sp2-el): 55.1 ml LVAs ap2: 14.3 cm2 LVLs ap2: 7.2 cm ESV(MOD-sp2): 25.0 ml ESV(sp2-el): 24.3 ml EF(MOD-sp2): 55.0 % SV(sp4-el): 51.7 ml Ao sinus diam: 3.[address] Junction: 3.1 cm LA dimension(2D): 4.2 cm LA A4 area: 15.8 cm2 RA A4 area: 12.6 cm2 TAPSE: 1.7 cm Time Measurements MV dec time: 0.19 sec Doppler Measurements & Calculations MV E max virgilio: 89.5 cm/sec Lat Peak E' Virgilio: 12.3 cm/sec Med Peak E' Virgilio: 10.4 cm/sec MV A max virgilio: 79.3 cm/sec E/E' lat: 7.3 E/E' med: 8.6 MV E/A: 1.1 MV dec slope: 474.8 cm/sec2 Ao V2 max: 158.9 cm/sec LV V1 max: 130.0 cm/sec Ao max P.1 mmHg LV V1 max P.8 mmHg Ao V2 mean: 107.4 cm/sec LV V1 mean P.8 mmHg Ao mean P.4 mmHg LV V1 mean: 107.5 cm/sec Ao V2 VTI: 30.7 cm LV V1 VTI: 24.2 cm AV (velocity ratio): 0.79 LUIZ(I,D): 3.0 cm2 LUIZ(V,D): 3.1 cm2 SV(LVOT): 93.1 ml PA V2 max: 136.0 cm/sec TR max virgilio: 206.8 cm/sec TR max P.1 mmHg ECHO/Echo Complete Interpretation Summary The estimated ejection fraction is 60 %. Mild hypokensis of the inferior wall. Stage 1 diastolic dysfunction. Mild (1+) mitral valve insufficiency. No previous echo to compare. Ordering Physician: Anaid Zavala Referring Physician: Michael Elliott Performed By: Shandra Cosme [facility] 05/01/25 1504 Date _ Michael Elliott MD CC: Dr. Michael Elliott MD; Dr. Deepti Melchor DO; Dr. Anaid Zavala MD; No Primary Care Physician ~ Date Dictated: 05/01/25 1010 Date Transcribed: 05/01/251503 Control Systems Engineer: Signed [facility] Work Phone: Electrocardiogram reportOrde red By: Michael Elliott on 08-26-2025 EKG study [facility] Cardiovascular Services [address] [place] [address] 12 Lead EKG 05/01/25 0452 MR#: [id number] Acct: [id number] Name: ALBERT ANDRADE Rep #:[id number] : 1960 64 From: Michael Elliott MD Attending Dr: Dr. Deepti Melchor DO S tatus: ADM IN Ordering Dr: Michael Elliott MD Date: Location: ICU Sex: M C Admitted: 04/30/25 Test Reason : AM EKG Blood Pressure : */* mmHG Vent. Rate : 73 BPM Atrial Rate : 73 BPM P-R Int : 148 ms QRS Dur : 94 ms QT Int : 436 ms P-R-T Axes : 43 -35 42 degrees QTcB Int : 480 ms Normal sinus rhythm Left axis deviation Minimal voltage criteria for LVH, may be normal variant ( R in aVL ) Inferior infarct , age undetermined Abnormal ECG When compared with ECG of 30-Apr-2025 13:03, MANUAL COMPARISON REQUIRED DATA IS UNCONFIRMED Confirmed by MICHAEL ELLIOTT ([id number]), editor dictionary CAT SALGADO ([id number]) on 05/01/2025 1:10:21 PM Referred By: Michael Elliott Confirmed By: MICHAEL ELLIOTT 05/01/25 1310 Date _ Michael Elliott MD CC: Dr. Michael Elliott MD; Dr. Deepti Melchor DO; No Primary Care Physician ~ Signed [facility] Work Phone: Hemoglobin A1con 05-01-2025 HbA1c (Bld) [Mass fraction] 6.2 % High <=5.6 [facility] Comment on above: Result Comment: Norm al < 5.7 % Prediabetic 5.7 - 6.4 % Diabetic >or= 6.5 % Please note range changes. Performed By: #### L 501.9985 ####[facility] [address] [place], [place], [id number] Hemoglobin A1c percentageOrd ered By: Anaid Zavala on 05-01-2025 HbA1c (Bld) [Mass fraction] 6.2 % High <5.7 [facility] Comment on above: Normal < 5.7 % Predi abetic 5.7 - 6.4 % Diabetic >or= 6.5 % Please note range changes. LDL calc ser/plasOrdered By: Anaid Zavala on 05-01-2025 Cholesterol in LDL [Mass/Vol] 73 mg/dL [facility] Comment on above: Ebdkqmcbkv=324-113 m g/dL & Higher Oeyj=748 mg/dL or greaterFriedwald Equation for LDL-C Laboratory - Chemistry and C hemistry - challengeOrdered By: Michael Elliott on 05-01-2025 AST [Catalytic activity/Vol] 73 U/L High <38 [facility] Lipid Profileon 05-01-2025 CHOL:HDL 2.81 Normal [facility] Comment on above: Performed By: #### L 100.0500, L500.4050, L501.9520, L500.4100 ####[facility] [address] [place], [place], [id number] Cholesterol [Mass/Vol] 143 mg/dL Normal <=200 [facility] Comment on above: Result Comment: Chol esterol level, Desirable <200 mg/dL Borderline high cholesterol 200-239 mg/dL High cholesterol >=240 mg/dL Recommendations of the NCEP Adult Treatment Panel for the following risk-cutoff thresholds for the [place] population. Performed By: #### L 100.0500, L500.4050, L501.9520, L500.4100 ####[facility] [address] [place], [address] Cholesterol in HDL [Mass/Vol] 51 mg/dL Normal [facility] Comment on above: Result Comment: Deborah rose Cholesterol Education Program (NCEP) guidelines: <40 mg/dL: Low HDL-cholesterol (major risk factor for CHD) >= 60 mg/dL: High HDL-cholesterol (negative risk factor for CHD) HDL-cholesterol is affected by a number of factors, e.g. smoking, exercise, hormones, sex and age. Performed By: #### L 100.0500, L500.4050, L501.9520, L500.4100 ####[facility] [address] [place], [address] Cholesterol in LDL [Mass/Vol] 73 mg/dL Normal [facility] Comment on above: Result Comment: Bord jmffxp=727-068 mg/dL Higher Zkbz=669 mg/dL or greater Friedwald Equation for LDL-C Performed By: #### L 100.0500, L500.4050, L501.9520, L500.4100 ####[facility] [address] [place], [address] Cholesterol in VLDL [Mass/Vol] 20 mg/dL Normal 5-40 [facility] Comment on above: Performed By: #### L 100.0500, L500.4050, L501.9520, L500.4100 ####[facility] [address] [place], [address] Triglyceride [Mass/Vol] 98 mg/dL Normal [facility] Comment on above: Result Comment: The drugs N-Acetylcysteine and Metamizole may falsely depress this assay. Normal range: <150 mg/dL Borderline High: 150-199 mg/dL High: 200-499 mg/dL Very High: >500 mg/dL Performed By: #### L 100.0500, L500.4050, L501.9520, L500.4100 ####[facility] [address] [place], [address] Screening total cholesterol/ high density lipoprotein (HDL) cholesterol ratioOrdered By: Anaid Zavala on 05-01-2025 Cholesterol.total/Carline sterol in HDL [Mass ratio] 2.81 {ratio} [facility] Serum globulin measurementOr dered By: Michael Elliott on 05-01-2025 Globulin (S) [Mass/Vol] 2.4 g/dL 2.2-4.2 [facility] Serum or plasma alanine caceres otransferase (ALT) measurementOrdered By: Michael Elliott on 05-01-2025 ALT [Catalytic activity/Vol] 24 U/L <47 [facility] Serum or plasma albumin ayleen urement (mass/volume)Ordered By: [facility] on 05-01-2025 Albumin [Mass/Vol] 3.9 g/dL 3.4-4.8 [facility] Serum or plasma albumin/glob ulin mass ratioOrdered By: [facility] Earl on 05-01-2025 Albumin/Globulin [Mass ratio] 1.6 {ratio} 0.9-2.4 [facility] Serum or plasma alkaline ebenezer sphatase measurementOrdered By: [facility] Earl on 05-01-2025 ALP [Catalytic activity/Vol] 64 U/L 40-129 [facility] Serum or plasma cholesterol in HDL measurement (mass/volume)Ordered By: Anaid Zavala on 05-01-2025 Cholesterol in HDL [Mass/Vol] 51 mg/dL >40 [facility] Comment on above: National Cholesterol Education Program (NCEP) guidelines:<40 mg/dL: Low HDL-cholesterol (major risk factor for CHD)>= 60 mg/dL: High HDL-cholesterol (negative risk factor for CHD)HDL-cholesterol is affected by a number of factors, e.g. smoking, exercise, hormones, sex and age. Serum or plasma cholesterol measurement (mass/volume)Ordered By: Anaid Zavala on 05-01-2025 Cholesterol [Mass/Vol] 143 mg/dL <201 [facility] Comment on above: Cholesterol level, D esirable <200 mg/dLBorderline high cholesterol 200-239 mg/dLHigh cholesterol >=240 mg/dLRecommendations of the NCEP Adult Treatment Panel for the following risk-cutoff thresholds for the [place] population. TSH DL <= 0.005 mIU/L QnOrde red By: Anaid Zavala on 05-01-2025 TSH Qn 2.510 uIU/mL 0.300-4.200 [facility] Thyroid Stim Hormone (TSH)on 05-01-2025 TSH 2.510 uIU/mL Normal 0.300-4.200 [facility] Comment on above: Performed By: #### L 100.0500, L500.4050, L501.9520, L500.4100 ####[facility] [address] [place], [address] Total proteinOrdered By: Frandy Elliott on 05-01-2025 Protein [Mass/Vol] 6.3 g/dL 5.9-8.4 [facility] Triglycerides measurementOrd ered By: Anaid Zavala on 05-01-2025 Triglyceride [Mass/Vol] 98 mg/dL <199 [facility] Comment on above: The drugs N-Acetylcy steine and Metamizole may falsely depress this assay. Normal range: <150 mg/dLBorderline High: 150-199 mg/dLHigh: 200-499 mg/dLVery High: >500 mg/dL 12 Lead EKGon 04-30-2025 12 Lead EKG [facility] Cardiovascular Services [address] [place] [address] 12 Lead EKG 05/01/25 0452 MR#: [id number] Acct: [id number] Name: ALBERT ANDRADE Rep #: [id number] : 1960 64 From: Michael Elliott MD Attending Dr: Dr. Deepti Melchor, Status: ADM I N Ordering Dr: Michael Elliott MD Date: 04/30/25 Location: ICU Sex: M C Admitted: 04/30/25 Test Reason : AM EKG Blood Pressure : */* mmHG Vent. Rate : 73 BPM Atrial Rate : 73 BPM P-R Int : 148 ms QRS Dur : 94 ms QT Int : 436 ms P-R-T Axes : 43 -35 42 degrees QTcB Int : 480 ms Normal sinus rhythm Left axis deviation Minimal voltage criteria for LVH, may be normal variant ( R in aVL ) Inferior infarct , age undetermined Abnormal ECG When compared with ECG of 30-Apr-2025 13:03, MANUAL COMPARISON REQUIRED DATA IS UNCONFIRMED Confirmed by MICHAEL ELLIOTT ([id number]), editor dictionary CAT SALGADO ([id number]) on 05/01/2025 1:10:21 PM Referred By: Michael Elliott Confirmed By: MICHAEL ELLIOTT 05/01/25 1310 Date Michael Elliott MD CC: Dr. Michael Elliott MD; Dr. Deepti Melchor DO; No Primary Care Physician Signed [facility] 12 Lead EKG [facility] Cardiovascular Services [address] [place] [address] 12 Lead EKG 04/30/25 1303 MR#: [id number] Acct: [id number] Name: ALBERT ANDRADE Rep #: [id number] : 1960 64 From: Michael Elliott MD Attending Dr: Dr. Deepti Melchor DO Status: ADM I N Ordering Dr: David Keene MD Date: 04/30/25 Location: [facility] Sex: M C Admitted: 04/30/25 Test Reason : CP Blood Pressure : */* mmHG Vent. Rate : 104 BPM Atrial Rate : 104 BPM P-R Int : 152 ms QRS Dur : 102 ms QT Int : 364 ms P-R-T Axes : 57 10 58 degrees QTcB Int : 478 ms Critical Test Result: STEMI Sinus tachycardia with frequent Premature ventricular complexes in a pattern of bigeminy ST elevation consider inferior injury or acute infarct ACUTE IL / STEMI Consider right ventricular involvement in acute inferior infarct Abnormal ECG When compared with ECG of 23-Mar-2012 15:11, Premature ventricular complexes are now Present ST elevation now present in Inferior leads ST now depressed in Anterolateral leads Confirmed by MICHAEL ELLIOTT ([id number]), editor dictionary TENZIN URBINA ([id number]) on 05/02/2025 1:57:34 PM Referred By: Michael Elliott Confirmed By: MICHAEL ELLIOTT 05/02/25 1357 Date Michael Elliott MD CC: Dr. Michael Elliott MD; Dr. Deepti Melchor DO; Dr. David Keene MD; No Primary Care Physician Signed Normal [facility] ACT Activated Clotting Timeo n 04-30-2025 ACTk CLOT TIME 205 sec High 74-137 [facility] Comment on above: Performed By: #### L 9100.0100 #### [facility] Laboratory [address] [place], [address] ACTk CLOT TIME 360 sec High 74-137 [facility] Comment on above: Performed By: #### L 9100.0100 ####[facility] [address] [place], [address] Absolute lymphocyte countOrd ered By: David Keene on 04-30-2025 Lymphocytes Auto (Unsp spec) [#/Vol] 3.31 10*3/uL 0.83-4.51 [facility] Absolute neutrophil countOrd ered By: David Keene on 04-30-2025 Neutrophils (Bld) [#/Vol] 8.0 10*3/uL High 2.0-7.7 [facility] Activated partial thrombopla stin time (aPTT) in platelet poor plasma by coagulation aOrdered By: David Keene on 04-30-2025 aPTT Coag (PPP) [Time] 30.2 s 24.1-36.2 [facility] Anion gap in Serum or Plasma Ordered By: David Keene on 04-30-2025 Anion gap [Moles/Vol] 14 mmol/L 5-15 [facility] Automated lymphocyte count a s percentage of total leukocytesOrdered By: David Keene on 04-30-2025 Lymphocytes/100 WBC Auto (Unsp spec) 26.6 % -41 [facility] BUN/creatinine ratioOrdered By: David Keene on 04-30-2025 Urea nitrogen/Creatinine [Mass ratio] 13.9 mg/mg 06-25 [facility] Basic Metabolic Profile (BMP )on 04-30-2025 BUN/CRE 13.9 RATIO Normal 06-25 [facility] Comment on above: Performed By: #### L 500.2500, L300.3900, L300.4310, L100.0100, L501.4021 ####[facility] [address] [place], [address] Calcium [Mass/Vol] 9.5 mg/dL Normal 7.6-11.0 [facility] Comment on above: Performed By: #### L 500.2500, L300.3900, L300.4310, L100.0100, L501.4021 ####[facility] [address] [place], [address] Chloride [Moles/Vol] 104 mmol/L Normal 98-108 [facility] Comment on above: Performed By: #### L 500.2500, L300.3900, L300.4310, L100.0100, L501.4021 ####[facility] [address] [place], [address] CO2 [Moles/Vol] 22.3 mmol/L Normal 21.0-32.0 [facility] Comment on above: Performed By: #### L 500.2500, L300.3900, L300.4310, L100.0100, L501.4021 ####[facility] [address] [place], [address] Creatinine [Mass/Vol] 0.88 mg/dL Normal 0.70-1.20 [facility] Comment on above: Performed By: #### L 500.2500, L300.3900, L300.4310, L100.0100, L501.4021 ####[facility] [address] [place], [address] ECRCL 108.25 ml/min Normal 50-250 [facility] Comment on above: Performed By: #### L 500.2500, L300.3900, L300.4310, L100.0100, L501.4021 ####[facility] [address] [place], [address] GAP 14 Normal 5-15 [facility] Comment on above: Performed By: #### L 500.2500, L300.3900, L300.4310, L100.0100, L501.4021 ####[facility] [address] [place], [address] GFR/1.73 sq M.predicted among non-blacks MDRD (S/P/Bld) [Vol rate/Area] 96 mL/min/{1.73_m2} Normal >60 [facility] Comment on above: Result Comment: mL/m in/1.73m2 CKD-EPI Creatinine Equation (2020) Performed By: #### L 500.2500, L300.3900, L300.4310, L100.0100, L501.4021 ####[facility] [address] [place], [address] Glucose [Mass/Vol] 171 mg/dL High 70-99 [facility] Comment on above: Performed By: #### L 500.2500, L300.3900, L300.4310, L100.0100, L501.4021 ####[facility] [address] [place], [address] Potassium [Moles/Vol] 3.6 mmol/L Normal 3.3-5.1 [facility] Comment on above: Performed By: #### L 500.2500, L300.3900, L300.4310, L100.0100, L501.4021 ####[facility] [address] [place], [address] Sodium [Moles/Vol] 140 mmol/L Normal 133-145 [facility] Comment on above: Performed By: #### L 500.2500, L300.3900, L300.4310, L100.0100, L501.4021 ####[facility] [address] [place], [address] Urea nitrogen [Mass/Vol] 12 mg/dL Normal 4-19 [facility] Comment on above: Performed By: #### L 500.2500, L300.3900, L300.4310, L100.0100, L501.4021 ####[facility] [address] [place], [address] Basophil percentageOrdered B y: David Keene on 04-30-2024 Basophils/100 WBC (Bld) 0.6 % 0-1 [facility] CBC W/Diff, Automatedon 04-07 Absolute Lymph 3.31 X10 3/uL Normal 0.83-4.51 [facility] Comment on above: Performed By: #### L 500.2500, L300.3900, L300.4310, L100.0100, L501.4021 #### [facility] [address] [place], [address] Absolute Neut 8.0 X10 3/uL High 2.0-7.7 [facility] Comment on above: Performed By: #### L 500.2500, L300.3900, L300.4310, L100.0100, L501.4021 #### [facility] [address] [place], [address] Basophils/100 WBC (Bld) 0.6 % Normal 0-1 [facility] Comment on above: Performed By: #### L 500.2500, L300.3900, L300.4310, L100.0100, L501.4021 #### [facility] [address] [place], [address] Eosinophils/100 WBC (Bld) 0.6 % Normal 0-5 [facility] Comment on above: Performed By: #### L 500.2500, L300.3900, L300.4310, L100.0100, L501.4021 #### [facility] [address] [place], [address] Erythrocyte distribution width (RBC) [Ratio] 13.9 % Normal 11.6-14.6 [facility] Comment on above: Performed By: #### L 500.2500, L300.3900, L300.4310, L100.0100, L501.4021 #### [facility] [address] [place], [address] Hematocrit (Bld) [Volume fraction] 46.0 % Normal 40-54 [facility] Comment on above: Performed By: #### L 500.2500, L300.3900, L300.4310, L100.0100, L501.4021 #### [facility] [address] [place], [address] Hemoglobin (Bld) [Mass/Vol] 15.7 g/dL Normal 13.0-16.5 [facility] Comment on above: Performed By: #### L 500.2500, L300.3900, L300.4310, L100.0100, L501.4021 #### [facility] [address] [place], [address] IG% 0.500 Normal 0.0-0.9 [facility] Comment on above: Result Comment: IG% - Immature Granulocytes (promyelocytes, myelocytes and metamyelocytes) > 1% indicates that a LEFT SHIFT is Present. Performed By: #### L 500.2500, L300.3900, L300.4310, L100.0100, L501.4021 #### [facility] [address] [place], [address] Lymphocytes/100 WBC (Bld) 26.6 % Normal 19-41 [facility] Comment on above: Performed By: #### L 500.2500, L300.3900, L300.4310, L100.0100, L501.4021 #### [facility] [address] [place], [address] MCH (RBC) [Entitic mass] 29.1 pg Normal 27.0-32.0 [facility] Comment on above: Performed By: #### L 500.2500, L300.3900, L300.4310, L100.0100, L501.4021 #### [facility] [address] [place], [address] MCHC (RBC) [Mass/Vol] 34.1 g/dL Normal 32-36 [facility] Comment on above: Performed By: #### L 500.2500, L300.3900, L300.4310, L100.0100, L501.4021 #### [facility] [address] [place], [address] MCV (RBC) [Entitic vol] 85.3 fL Normal 80-94 [facility] Comment on above: Performed By: #### L 500.2500, L300.3900, L300.4310, L100.0100, L501.4021 #### [facility] [address] [place], [address] Monocytes/100 WBC (Bld) 7.4 % Normal 0-10 [facility] Comment on above: Performed By: #### L 500.2500, L300.3900, L300.4310, L100.0100, L501.4021 #### [facility] [address] [place], [address] Neutrophils/100 WBC (Bld) 64.3 % Normal 47-70 [facility] Comment on above: Performed By: #### L 500.2500, L300.3900, L300.4310, L100.0100, L501.4021 #### [facility] [address] [place], [address] Nucleated RBC (Bld) [#/Vol] 0 10*3/uL Normal 0-5 [facility] Comment on above: Performed By: #### L 500.2500, L300.3900, L300.4310, L100.0100, L501.4021 #### [facility] [address] [place], [address] Platelet mean volume (Bld) [Entitic vol] 9.5 fL Normal 6.2-12.0 [facility] Comment on above: Performed By: #### L 500.2500, L300.3900, L300.4310, L100.0100, L501.4021 #### [facility] [address] [place], [address] Platelets (Bld) [#/Vol] 242 10*3/uL Normal 150-450 [facility] Comment on above: Performed By: #### L 500.2500, L300.3900, L300.4310, L100.0100, L501.4021 #### [facility] [address] [place], [address] RBC (Bld) [#/Vol] 5.39 10*6/uL Normal 4.6-6.2 [facility] Comment on above: Performed By: #### L 500.2500, L300.3900, L300.4310, L100.0100, L501.4021 #### [facility] [address] [place], [address] RDW SD 42.8 fl Normal 35.1-43.9 [facility] Comment on above: Performed By: #### L 500.2500, L300.3900, L300.4310, L100.0100, L501.4021 #### [facility] [address] [place], [address] WBC (Bld) [#/Vol] 12.4 10*3/uL High 4.4-11.0 [facility] Comment on above: Performed By: #### L 500.2500, L300.3900, L300.4310, L100.0100, L501.4021 #### [facility] [address] [place], [address] CVS/PCIREPORTon 04-30-2025 CVS/PCIREPORT [facility] [address] [place] [address] MR#: [id number] Acct: [id number] Name: ALBERT ANDRADE Rep #: [id number] : 1960 64 From: Michael Elliott MD Primary Care: Care Physician,No Primary Status: ADM IN Referring Dr: Michael Elliott MD Sex: M C PCI Cardiac Cath Report PCI Report: PCI cardiac cath report Patient with acute coronary syndrome with change in the EKG in the inferior initially does not show ST elevation subsequently there is some ST elevation With ventricular bigeminy. 1. Moderate sedation 2. Selective left coronary angiography 3. Selective right coronary angiography 4. Successful PCI of the culprit lesion, occluded proximal RCA with thrombectomy, followed by primary stenting using 4.5 x 30 mm drug-eluting stent to the proximal RCA., Up to 14 KRISTY. And improvement from FER 0 to FER-3 flow. 5. Selective right common femoral artery angiography and placement of Perclose 2 close right common femoral artery arteriotomy site 6. Placement of TR band to close the right radial artery arteriotomy site. Preprocedure diagnosis; 64-year-old patient seen at the ED at [facility] complaining of symptoms of ongoing epigastric and lower chest pain Patient thought this is acid reflux and came to the ED Where an EKG was abnormal with change in the inferior lead with already Q wave noted in the inferior lead with ventricular bigeminy on the EKG and right bundle branch block. He continued to have discomfort in the lower chest. His blood pressure was significantly elevated in the ED. As per history from the the patient was not following with any medical providers. She does not have any prior cardiac history. Consent; Emergency consent was obtained to perform emergency cardiac catheterization with possible PCI of the culprit lesion likely in this case will be proximal RCA. Diagnostic equipment and interventional equipment in the Ship'S Engineer; 1. 6 Polish sheath placed in the right common femoral artery 2. 6 Polish sheath placed in the right radial artery. 3. 5 Polish JL 3.5 diagnostic catheter 4. 6 Polish JR4 guide catheter 5. GuideLiner 6 Polish 6. [place] thrombectomy catheter 7. 0.014 180 cm run-through extra floppy straight guide wire 8. 4.5 x 30 mm drug-eluting stent [place]vie frontier XIAO Medication used in the Ship'S Engineer; 1. Patient was given Brilinta 180 mg 2. Patient was given aspirin 324 in the ED 3. Heparin With ACT level acceptable above 300 4. Integrilin 2 boluses with plan of Integrilin infusion Initial blood pressure was significant elevated After sedation and successful PCI the blood pressure was low requiring IV fluid Maintain a blood pressure of 127 mmHg/systolic blood pressure 5. Intracoronary/IC nitroglycerin 100 mcg. 6. IV fluid normal saline. Procedure in detail. Patient brought as an emergency from the ED Right radial artery and right groin prepped and draped in the usual sterile fashion Initially proceed from the right radial artery and a 6 Polish sheath placed in the right radial artery. However it was difficult to maintain the guide catheter which is a 6 Polish JR4 guide therefore we proceeded with access from the right common femoral artery And we were able to engage the RCA. We proceeded with the diagnostic catheter using 5 Polish JL 3 5 advancing [place] multiple views of left calcium obtained Following this identified the culprit is occluded proximal RCA at there was collateral from the left coronary artery to the distal RCA which is a large vessel Therefore we will proceed with the guide catheter from the right coronary ostium Which clearly demonstrated occluded proximal RCA. Patient was very critical with a large proximal RCA occlusion and a large thrombus burden. 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 And then we will proceed with primary stenting using 4.5 x 30 mm drug-eluting stent [place] frontier. And achieve excellent result with reduction of stenosis from 100-0 and FER 0 to FER-3 flow patient stable His blood pressure was low. GuideLiner was removed. Patient was given boluses of IV fluid and maintained on IV fluid normal saline. Blood pressure started to improve he does not have any active chest pain and his heart rhythm initially showed sinus bradycardia and improved subsequently. Coronary angiography; 1. Left main is normal angiographically bifurcating into LAD and left circumflex 2. Mid LAD had significant atherosclerosis of around 70%. Mid Also involving ostium of a large diagonal branch of around 90%. LAD (more content not included)... Normal [facility] Carbon dioxide, total [Moles /volume] in Central venous bloodOrdered By: David Keene on 04-30-2025 CO2 [Moles/Vol] 22.3 mmol/L 21.0-32.0 [facility] Cardiac catheterization repo rtOrdered By: Michael Elliott on 04-30-2025 Cardiac catheterization study [facility] [address] [place] [address] MR#: [id number] Acct: [id number] Name: ALBERT ANDRADE Rep #: [id number] : 1960 64 From: Michael Elliott MD Primary Care: Care Physician,No Primary Status: ADM IN Referring Dr: Michael Elliott MD Sex: M C PCI Cardiac Cath Report PCI Report: PCI cardiac cath report Patient with acute coronary syndrome with change in the EKG in the inferior initially does not show ST elevation subsequently there is some ST elevation With ventricular bigeminy. 1. Moderate sedation 2. Selective left coronary angiography 3. Selective right coronary angiography 4. Successful PCI of the culprit lesion, occluded proximal RCA with thrombectomy, followed by primary stenting using 4.5 x 30 mm drug-eluting stent to the proximal RCA., Up to 14 KRISTY. And improvement from FER 0 to FER-3 flow. 5. Selective right common femoral artery angiography and placement of Perclose 2 close right common femoral artery arteriotomy site 6. Placement of TR band to close the right radial artery arteriotomy site. Preprocedure diagnosis; 64-year-old patient seen at the ED at [facility] complaining of symptoms of ongoing epigastric and lower chest pain Patient thought this is acid reflux and came to the ED Where an EKG was abnormal with change in the inferior lead with already Q wave noted in the inferior lead with ventricular bigeminy on the EKG and right bundlebranch block. He continued to have discomfort in the lower chest. His blood pressure was significantly elevated in the ED. As per history from the the patient was not following with any medical providers. She does not have any prior cardiac history. Consent; Emergency consent was obtained to perform emergency cardiac catheterization withpossible PCI of the culprit lesion likely in this case will be proximal RCA. Diagnostic equipment and interventional equipment in the Ship'S Engineer; 1. 6 Polish sheath placed in the right common femoral artery 2. 6 Polish sheath placed in the right radial artery. 3. 5 Polish JL 3.5 diagnostic catheter 4. 6 Polish JR4 guide catheter 5. GuideLiner 6 Polish 6. [place] thrombectomy catheter 7. 0.014 180 cm run-through extra floppy straight guide wire 8. 4.5 x 30 mm drug-eluting stent [place] frontier XIAO Medication used in the Ship'S Engineer; 1. Patient was given Brilinta 180 mg 2. Patient was given aspirin 324 in the ED 3. Heparin With ACT level acceptable above 300 4. Integrilin 2 boluses with plan of Integrilin infusion Initial blood pressure was significant elevated After sedation and successful PCI the blood pressure was low requiring IV fluid Maintain a blood pressure of 127 mmHg/systolic blood pressure 5. Intracoronary/IC nitroglycerin 100 mcg. 6. IV fluid normal saline. Procedure in detail. Patient brought as an emergency from the ED Right radial artery and right groin prepped and draped in the usual sterile fashion Initially proceed from the right radial artery and a 6 Polish sheath placed in the right radial artery. However it was difficult to maintain the guide catheter which is a 6 Polish JR4 guide therefore we proceeded with access from the right common femoral artery And we were able to engage the RCA. We proceeded with the diagnostic catheter using 5 Polish JL 3 5 advancing [place] multiple views of left calcium obtained Following this identified the culprit is occluded proximal RCA at there was collateral from the left coronary artery to the distal RCA which is a large vessel Therefore we will proceed with the guide catheter from the right coronary ostium Which clearly demonstrated occluded proximal RCA. Patient was very critical with a large proximal RCA occlusion and a large thrombus burden. 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 And then we will proceed with primary stenting using 4.5 x 30 mm drug-eluting stent [place]. And achieve excellent result with reduction of stenosis from 100-0 and FRE 0 to FER-3 flow patient stable His blood pressure was low. GuideLiner was removed. Patient was given boluses of IV fluid and maintained on IV fluid normal saline. Blood pressure started to improve he does not have any active chest pain and hisheart rhythm initially showed sinus bradycardia and improved subsequently. Coronary angiography; 1. Left main is normal angiographically bifurcating into LAD and left circumflex 2. Mid LAD had significant atherosclerosis of around 70%. Mid Also involving ostium of a large diagonal branch of around 90%. LAD does not reach all the way to the apex 2. Diagonal branch ostial 90% 3. Left circumflex proximally had nonobstructive screws of around 40%. 5. RCA occluded proximally wit (more content not included)... [facility] Work Phone: Chloride assayOrdered By: Santiago Keene on 04-30-2025 Chloride [Moles/Vol] 104 mmol/L 98-108 [facility] Echo Completeon 04-30-2025 Echo Complete [facility] [address] [place] [address] Echo Complete 05/01/25 1010 MR#: [id number] Acct: [id number] Name: ALBERT ANDRADE Rep #: [id number] : 1960 64 From: Michael Elliott MD Attending Dr: Dr. Deepti Melchor, DO Status: ADM I N Ordering Dr: Anaid Zavala MD Date: 04/30/25 Location: ICU Sex: M C Admitted: 04/30/25 Reason For Study Reason For Study: CHEST PAIN Procedure This was a 2D Doppler, Color Flow transthoracic echocardiogram. Myocardial strain analysis was performed in this exam to aid in the assessment of cardiac function. Exam performed portable in ICU/CCU. Left Ventricle Normal LV size. The estimated ejection fraction is 60 %. Stage 1 diastolic dysfunction. Mild hypokensis of the inferior wall. Right Ventricle Normal RV size. Normal systolic function. Atria Normal left atrium. Normal right atrium. Mitral Valve The mitral valve is structurally normal. No prolapse or stenosis seen. Mild (1+) mitral valve insufficiency. Tricuspid Valve Normal tricuspid valve. Trivial tricuspid valve insufficiency. Pulmonary artery systolic pressure is 20 mmHg. Aortic Valve Trisinus/trileaflet aortic valve. Mild focal aortic valve thickening. There is no aortic stenosis. Pulmonic Valve Normal pulmonic valve. Trivial pulmonic valve insufficiency. Great Vessels Normal sized aortic root. Pericardium/Pleural No pericardial effusion. MMode/2D Measurements Calculations LVIDd: 4.8 cm IVSd: 1.1 cm LVOT diam: 2.2 cm LVIDs: 3.3 cm LVPWd: 1.0 cm LVOT area: 3.8 cm2 RVDd: 3.7 cm FS: 32.2 % asc Aorta Diam: 3.6 cm LAV(MOD-bp): 48.0 ml LVAd ap4: 27.7 cm2 LAV(MOD-bp) Indexed: 20.8 ml/m2 LVLd ap4: 8.2 cm LAV(MOD-sp2): 59.1 ml EDV(MOD-sp4): 76.3 ml LAV(MOD-sp4): 40.2 ml EDV(sp4-el): 79.3 ml LVAs ap4: 14.6 cm2 LVLs ap4: 6.6 cm ESV(MOD-sp4): 27.1 ml ESV(sp4-el): 27.6 ml EF(MOD-sp4): 64.5 % EF(sp4-el): 65.2 % LVAd ap2: 23.1 cm2 SV(MOD-sp4): 49.2 ml SV(MOD-sp2): 30.5 ml LVLd ap2: 8.2 cm SI(MOD-sp4): 21.3 ml/m2 SI(MOD-sp2): 13.2 ml/m2 EDV(MOD-sp2): 55.5 ml EDV(sp2-el): 55.1 ml LVAs ap2: 14.3 cm2 LVLs ap2: 7.2 cm ESV(MOD-sp2): 25.0 ml ESV(sp2-el): 24.3 ml EF(MOD-sp2): 55.0 % SV(sp4-el): 51.7 ml Ao sinus diam: 3.[address] Junction: 3.1 cm LA dimension(2D): 4.2 cm LA A4 area: 15.8 cm2 RA A4 area: 12.6 cm2 TAPSE: 1.7 cm Time Measurements MV dec time: 0.19 sec Doppler Measurements Calculations MV E max virgilio: 89.5 cm/sec Lat Peak E' Virgilio: 12.3 cm/sec Med Peak E' Virgilio: 10.4 cm/sec MV A max virgilio: 79.3 cm/sec E/E' lat: 7.3 E/E' med: 8.6 MV E/A: 1.1 MV dec slope: 474.8 cm/sec2 Ao V2 max: 158.9 cm/sec LV V1 max: 130.0 cm/sec Ao max P.1 mmHg LV V1 max P.8 mmHg Ao V2 mean: 107.4 cm/sec LV V1 mean P.8 mmHg Ao mean P.4 mmHg LV V1 mean: 107.5 cm/sec Ao V2 VTI: 30.7 cm LV V1 VTI: 24.2 cm AV (velocity ratio): 0.79 LUIZ(I,D): 3.0 cm2 LUIZ(V,D): 3.1 cm2 SV(LVOT): 93.1 ml PA V2 max: 136.0 cm/sec TR max virgilio: 206.8 cm/sec TR max P.1 mmHg ECHO/Echo Complete Interpretation Summary The estimated ejection fraction is 60 %. Mild hypokensis of the inferior wall. Stage 1 diastolic dysfunction. Mild (1+) mitral valve insufficiency. No previous echo to compare. Ordering Physician: Anaid Zavala Referring Physician: Michael Elliott Performed By: Shandra Cosme RDCS 05/01/25 1504 Date Michael Elliott MD CC: Dr. Michael Elliott MD; Dr. Deepti Melchor DO; Dr. Anaid Zavala MD; No Primary Care Physician Date Dictated: 05/01/25 1010 Date Transcribed: 05/01/25 1504 Control Systems Engineer: Signed Normal [facility] Echo, Limited Studyon 2024 Echo, Limited Study [facility] [address] [place] [address] Echo, Limited Study 04/30/25 1330 MR#: [id number] Acct: [id number] Name: ALBERT ANDRADE Rep #: [id number] : 1960 64 From: Michael Elliott MD Attending Dr: Dr. Anaid Zavala MD Status: ADM IN Ordering Dr: Samir Hanna MD Date: 04/30/25 Location: ICU Sex: M C Admitted: 04/30/25 Reason For Study Reason For Study: CHEST PAIN Procedure This was a limited 2D transthoracic echocardiogram. Exam performed in senior label specialist. Left Ventricle Normal left ventricle. The estimated ejection fraction is 65???70 %. Right Ventricle Normal right ventricle. Atria Normal left atrium. Mitral Valve The mitral valve is structurally normal. No prolapse or stenosis seen. MMode/2D Measurements Calculations LVAd ap4: 29.4 cm2 SV(MOD-sp4): 61.8 ml SV(sp4-el): 64.1 ml LVLd ap4: 8.2 cm SI(MOD-sp4): 26.7 ml/m2 EDV(MOD-sp4): 88.5 ml EDV(sp4-el): 89.4 ml LVAs ap4: 13.2 cm2 LVLs ap4: 5.8 cm ESV(MOD-sp4): 26.7 ml ESV(sp4-el): 25.3 ml EF(MOD-sp4): 69.9 % EF(sp4-el): 71.7 % ECHO/Echo, Limited Study Interpretation Summary The estimated ejection fraction is 65???70 %. Limited transthoracic echocardiogram with inferior hypokinesia. No prior echocardiogram to compare. Ordering Physician: Samir Hanna Referring Physician: Michael Elliott Performed By: Ofelia Page RCS 04/30/25 1622 Date Michael Elilott MD CC: Dr. Samir Hanna MD; Dr. Michael Elliott MD; Dr. Anaid Zavala MD; No Primary Care Physician Date Dictated: 04/30/25 1330 Date Transcribed: 04/30/25 1622 Control Systems Engineer: Signed Normal [facility] Emergency Department Summary on 04-30-2025 Emergency Department Summary [facility] Medical Records Department [address] [place] [address] Emergency Department Summary 04/30/25 MR#: [id number] Acct: [id number] Name: ALBERT ANDRADE Rep #: [id number] : 1960 64 From: David Keene MD PCP: Care Physician,No Primary Status:[facility] ER Location: ED HPI History of Present Illness Chief Complaint: Chest Pain Detail of Chief Complaint: Heartburn/indigestion and shortness of breath Informant: patient Onset/Context/Timing Onset: - (2 to 3 weeks ago with exertion and last evening at rest) Activity at onset: sudden Timing: Continuous Quality: Positive for Burning and Indigestion Location: Substernal Current Severity: Mild Maximum Severity: Moderate Worsened By: Exertion (Worse walking up the incline) Relieved By: Nothing Associated Symptoms: Positive for Dyspnea and Lightheadedness; Negative for Nausea, Vomiting, Diaphoresis, Cough, Fever, Acid Reflux or Palpitations Narrative Narrative: Patient is a 64-year-old male with no past medical history on no medication who presents because of indigestion shortness of breath and pain that radiate through to his back. 2 to 3 weeks ago while moving logs he had heartburn indigestion substernal with difficulty breathing. Symptoms resolved after he stopped. Last evening he had basal crackers. He believes this is the cause of his indigestion. Apparently he is having difficulty with breathing and had difficulty sleeping last evening. He still complain of retrosternal indigestion radiating through to his back. Does not radiate anywhere else. He denies history of hiatal hernia, reflux or peptic ulcer disease. [place] black or maroon-colored stool. He has no history of VTE or any risk factors. He denies headache, visual, ocular auditory symptoms. Recent Illness/Hospitalizati on: No CVD Risk Factors: Negative for Hypertension, Diabetes, Hypercholesterolemia, Family History 1' or Smoking PE Risk Factors: Negative for Recent Travel/Surgery, Recent Immobilization, Prior DVT or PE, Cancer or OCP + Smoking + >/=35 TAD Risk Factors: Negative for Marfan's Syndrome, Hypertension or Family History PFSH PFSH Medical History no medical history no medical history Home Medications ???Medication ???Instructions ???Recorded ???Last Taken ???Type NK 04/30/25 Unknown History Allergy/AdvReac Type Severity Reaction Status Date / Time No Known Allergies Allergy Verified 04/30/25 12:51 Family History no significant family his Surgical History no surgical history Social History (Updated 04/30/25 @ 13:[address] David Keene MD) household members: spouse Smoking Status: Never smoker ROS ROS ED Constitutional Constitutional ED: Denies chills, fever(s), subjective or sweats Eyes Eyes: Reports none Cardiovascular Cardiovascular: Reports as per HPI and chest pain; Denies orthopnea or paroxysmal nocturnal dyspnea Respiratory/Chest Respiratory/Chest: Reports dyspnea on exertion; Denies cough, dyspnea, orthopnea or paroxysmal nocturnal dyspnea Gastrointestinal Gastrointestinal: Denies abdominal pain, melena, nausea or vomiting Musculoskeletal Musculoskeletal: Reports back pain; Denies arthralgias or myalgias Integumentary Denies rash Neurologic Neurologic: Denies headache(s) Hematologic/Lymphatic Hematologic/Lymphatic : Denies easy bleeding or easy bruising Allergic/Immunologic Allergic/Immunologic ED: Denies mouth swelling or tongue swelling EXAM Physical Exam Const Vital Signs: 04/30/25 12:50 04/30/25 13:21 Temperature 97 F L Temperature Source Temporal Pulse Rate 88 Respiratory Rate 16 Blood Pressure 214/107 H Blood Pressure Mean 142 Pulse Ox 100 Oxygen Delivery Method Room Air Room Air Positive well nourished and well developed Constitutional Narrative: Blood pressure is elevated 214/107. BMI is elevated at 36.7. General Appearance ED: well developed HEENT Reports moist mucous membranes normocephalic and atraumatic Eyes PERRL and EOMs intact bilaterally General Eye ED: Negative for pale conjunctiva or scleral icterus Neck no lymphadenopathy, supple and no JVD Chest Wall inspection of chest normal and palpation of chest normal Resp normal respiratory effort and clear to auscultation bilaterally Cardio regular rate, S1 normal heart sound, S2 normal heart sound and no murmurs; Negative for regular rhythm Peripheral Pulses: pulses 2+ throughout GI normal to inspection, nondistended, normoactive bowel sounds, soft to palpation, non-tender and non- distended; Negative for hepatosplenomegaly or no masses Back/Spine no CVA tenderness Extremity normal to inspection General Extremety ED: Negative for edema or pulses abnormal General Extremity: Negative for edema or pulses abnormal Neuro oriented x3 and CN's I (more content not included)... Normal [facility] Eosinophil percentageOrdered By: Davidedison Keene on 04-30-2025 Eosinophils/100 WBC (Bld) 0.6 % 0-5 [facility] Erythrocyte distribution wid th ratioOrdered By: Davidedison Keene on 04-30-2025 Erythrocyte distribution width (RBC) [Ratio] 13.9 % 11.6-14.6 [facility] Erythrocyte distribution wid th standard deviationOrdered By: Davidedison Keene on 04-30-2025 Erythrocyte distribution width (RBC) [Ratio] 42.8 fl 35.1-43.9 [facility] Glomerular filtration rate ( GFR) estimation/1.73 sq m using serum, plasma, or whole bOrdered By: David Keene on 04-30-2025 GFR/1.73 sq M.predicted among non-blacks MDRD (S/P/Bld) [Vol rate/Area] 96 mL/min/{1.73_m2} >60 [facility] Comment on above: mL/min/1.73m2 CKD-EP I Creatinine Equation (2020) H AND P Exam - [facility] 04-30-2025 H&P Exam - Hospitalist [facility] Medical Records Department [address] [place] [address] H P Exam - Hospitalist 04/30/25 1621 MR#: [id number] Acct: [id number] Name: ALBERT ANDRADE Rep #: [id number] : 1960 64 From: Anaid Zavala MD PCP: Care Physician,No Primary Status:ADM IN Location: ICU [id number] HPI - General General Date of Admission: 04/30/25 Date of Service: 04/30/25 Chief Complaint: Indigestion HPI Narrative ALBERT ANDRADE, is a 64-year-old male with no known past medical history presented [facility] ED 04/30/2025 due to heartburn/indigestion and shortness of breath as well as pain rating to his back. He initially had this 2 to 3 weeks ago while he was moving logs and noted the heartburn and indigestion and substernal area with difficulty breathing but symptoms resolved after he stopped. Last night was having difficulty breathing and difficulty sleeping and complained of the retrosternal indigestion radiating to his back ultimately prompting patient to come to the ED. Initially patient was STEMI alert however cardiology evaluated did not think that this was an acute STEMI though patient did have EKG changes. Patient also in bigeminy and was taken to the Ship'S Engineer given all of the above and his continued symptoms. On presentation temp 97, heart rate 88 and blood pressure initially 214/107, respiratory rate 16 pulse ox 100% on room air. CBC with a white blood cell count of 12 and BMP only notable for glucose of 171, initial troponin 189. Patient taken straight to the Ship'S Engineer. Patient evaluated post Ship'S Engineer at bedside. Patient reports history as above, said he also noticed occasional dry cough/clearing throat over the past couple of weeks but does not feel the need to do that now, presently not having of the indigestion or chest pain, just feels somewhat uncomfortable overall due to laying in the bed, has not been able to get up yet, not presently feeling shortness of breath [facility] Medical History (Updated 04/30/25 @ 17:09 by Mile Thompson) Atherosclerotic heart disease of [place] coronary artery without angina pectoris Ureteral stent present Medical History no medical history Home Medications ???Medication ???Instructions ???Recorded ???Last Taken ???Type NK 04/30/25 Unknown History Allergy/AdvReac Type Severity Reaction Status Date / Time No Known Allergies Allergy Verified 04/30/25 12:51 Family History no significant family his Surgical History (Updated 04/30/25 @ 17:08 by Mile Thompson) History of appendectomy Stented coronary artery (04/30/25) Surgical History no surgical history Social History (Updated 04/30/25 @ 13:[address] David Keene MD) household members: spouse Smoking Status: Never smoker ROS ROS Narrative General: Denies fever/chills HENT: denies stuffy nose, denies sore throat EYES: Denies changes in vision Resp: Had been having a little bit of a cough/clearing throat, not at this time Cardiac: Denies chest pain GI: Denies abdominal pain, denies changes in bowel, denies nausea/vomiting : Denies changes in urination Extremity: Denies swelling MSK: Denies weakness, does feels a little bit uncomfortable overall right now Neuro: Denies any numbness/tingling, does have some tremors in his hands which are usually there but worse right now than usual Heme: Denies any bleeding or bruising Skin: Denies rashes Psychiatric: No complaints voiced Vital Signs Vital Signs Vital Signs: 04/30/25 12:50 04/30/25 13:21 04/30/25 13:49 Temperature 97 F L Temperature Source Temporal Pulse Rate 88 Respiratory Rate 16 Respiratory Effort Normal Non-Labored Blood Pressure 214/107 H Blood Pressure Mean 142 Pulse Ox 100 Oxygen Delivery Method Room Air Room Air 04/30/25 13:50 Temperature 97 F L Temperature Source Pulse Rate 104 H Respiratory Rate 15 Respiratory Effort Blood Pressure 155/133 H Blood Pressure Mean 140 Pulse Ox 97 Oxygen Delivery Method Weight Weight: 118 kg Body Mass Index (BMI) 38.4 Physical Exam Narrative General: Alert, oriented HEENT: Atraumatic, normocephalic Eyes: Anicteric, normal conjunctiva, extraocular movements grossly intact Neck: Supple Respiratory: Clear to auscultation bilaterally, normal respiratory effort Cardiovascular: Regular rate and rhythm GI: Soft, nontender, nondistended Extremities: No edema Musculoskeletal: Moving all extremities Neuro: No overt focal neurological deficits, does have some tremor and some outstretched hands Skin: No rashes appreciated Psych: Cooperative Results Lab / Micro Data 04/30/25 13:10 04/30/25 13:10 Labs: Laboratory Results - last 24 hr 04/30/25 13:04: Activated Clotting Time 205 H 04/30/25 13:10: WBC 12.4 H, RBC 5.39, Hgb (more content not included)... Normal [facility] Hematocrit Auto (Bld) [Volum e fraction]Ordered By: David Keene on 04-30-2025 Hematocrit (Bld) [Volume fraction] 46.0 % 40-54 [facility] Hemoglobin measurementOrdere d By: Davidedison Keene on 04-30-2025 Hemoglobin (Bld) [Mass/Vol] 15.7 g/dL 13.0-16.5 [facility] Immature granulocytes/100 WB C Auto (Bld)Ordered By: David Keene on 04-30-2025 Immature granulocytes/100 WBC (Bld) 0.500 % 0.0-0.9 [facility] Comment on above: IG% - Immature Granu locytes (promyelocytes, myelocytes and metamyelocytes) > 1% indicates that a LEFT SHIFT is Present. International normalized rat io (INR) calculationOrdered By: Davidedison Keene on 04-30-2025 INR Coag (Bld) [Relative time] 1.2 {INR} [facility] L501.4021on 04-30-2025 Trop T High Sen 189 ng/L Invalid Interpretation Code <=22 [facility] Comment on above: Result Comment: Crit ical Result(s) Called at: by: HAMLET WHITE??Results read back by same. Performed By: #### L 500.2500, L300.3900, L300.4310, L100.0100, L501.4021 ####[facility] [address] [place], [address] Limited echocardiogram repor tOrdered By: Michael Elliott on 04-30-2025 Study report [facility] [address] [place] [address] Echo, Limited Study 04/30/25 1330 MR#: [id number] Acct: [id number] Name: ALBERT ANDRADE Rep #:[id number] : 1960 64 From: Michael Elliott MD Attending Dr: Dr. Anaid Zavala MD Status: ADM IN Ordering Dr: Samir Hanna MD Date: Location: ICU Sex: M C Admitted: 04/30/25 Reason For Study Reason For Study: CHEST PAIN Procedure This was a limited 2D transthoracic echocardiogram. Exam performed in senior label specialist. Left Ventricle Normal left ventricle. The estimated ejection fraction is 65???70 %. Right Ventricle Normal right ventricle. Atria Normal left atrium. Mitral Valve The mitral valve is structurally normal. No prolapse or stenosis seen. MMode/2D Measurements & Calculations LVAd ap4: 29.4 cm2 SV(MOD-sp4): 61.8 ml SV(sp4-el): 64.1 ml LVLd ap4: 8.2 cm SI(MOD-sp4): 26.7 ml/m2 EDV(MOD-sp4): 88.5 ml EDV(sp4-el): 89.4 ml LVAs ap4: 13.2 cm2 LVLs ap4: 5.8 cm ESV(MOD-sp4): 26.7 ml ESV(sp4-el): 25.3 ml EF(MOD-sp4): 69.9 % EF(sp4-el): 71.7 % ECHO/Echo, Limited Study Interpretation Summary The estimated ejection fraction is 65???70 %. Limited transthoracic echocardiogram with inferior hypokinesia. No prior echocardiogram to compare. Ordering Physician: Samir Hanna Referring Physician: Michael Elliott Performed By: Ofelia Page RCS 04/30/25 1622 Date _ Michael Elliott MD CC: Dr. Samir Hanna MD; Dr. Michael Elliott MD; Dr. 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: Signed [facility] Work Phone: MCV (mean corpuscular volume ) determinationOrdered By: David Keene on 04-30-2025 MCV (RBC) [Entitic vol] 85.3 fL 80-94 [place] Mean corpuscular hemoglobin (MCH) determinationOrdered By: Davidedison Keene on 04-30-2025 MCH (RBC) [Entitic mass] 29.1 pg 27.0-32.0 [facility] Mean corpuscular hemoglobin concentration (MCHC) determinationOrdered By: Davidedison Keene on 04-30-2025 MCHC (RBC) [Mass/Vol] 34.1 g/dL 32-36 [facility] Mean platelet volume determi nationOrdered By: Davidedison Keene on 04-30-2025 Platelet mean volume (Bld) [Entitic vol] 9.5 fL 6.2-12.0 [facility] Monocyte percentageOrdered B y: David Keene on 04-30-2025 Monocytes/100 WBC (Bld) 7.4 % 0-10 [place] Neutrophil percentageOrdered By: David Keene on 04-30-2025 Neutrophils/100 WBC (Bld) 64.3 % 47-70 [facility] Nucleated red blood cell per centageOrdered By: Davidedison Keene on 04-30-2025 Nucleated RBC/100 WBC (Bld) [Ratio] 0 % 0-5 [facility] Partial Thromboplast Timeon 04-30-2025 aPTT Coag (Bld) [Time] 30.2 s Normal 24.1-36.2 [facility] Comment on above: Performed By: #### L 500.2500, L300.3900, L300.4310, L100.0100, L501.4021 ####[facility] [address] [place], [address] Platelet countOrdered By: [facility] Jassi on 04-30-2025 Platelets (Bld) [#/Vol] 242 10*3/uL 150-450 [facility] Potassium measurement (mass/ volume)Ordered By: Davidedison Keene on 04-30-2025 Potassium (Unsp spec) [Mass/Vol] 3.6 mmol/L 3.3-5.1 [facility] Prothrombin Time w/INRon INR Coag (PPP) [Relative time] 1.2 {INR} Normal [facility] Comment on above: Performed By: #### L 500.2500, L300.3900, L300.4310, L100.0100, L501.4021 #### [facility] [address] [place], [address] PT Coag (PPP) [Time] 15.1 s High 11.7-14.9 [facility] Comment on above: Performed By: #### L 500.2500, L300.3900, L300.4310, L100.0100, L501.4021 #### [facility] [address] [place], [address] Prothrombin timeOrdered By: David Keene on 04-30-2025 PT Coag (PPP) [Time] 15.1 s High 11.7-14.9 [facility] RBC Auto (Bld) [#/Vol]Ordere d By: Davidedison Keene on 04-30-2025 RBC (Bld) [#/Vol] 5.39 10*6/uL 4.6-6.2 [facility] Serum creatinine measurement (mass/volume)Ordered By: [facility] on 04-30-2025 Creatinine [Mass/Vol] 0.88 mg/dL 0.70-1.20 [facility] Serum glucose measurement (m ass/volume)Ordered By: [facility] on 04-30-2025 Glucose [Mass/Vol] 171 mg/dL High 70-99 [facility] Serum or plasma calcium ayleen urement (mass/volume)Ordered By: [facility] on 04-30-2025 Calcium [Mass/Vol] 9.5 mg/dL 7.6-11.0 [facility] Serum or plasma urea nitroge n measurement (mass/volume)Ordered By: [facility] on 04-30-2025 Urea nitrogen [Mass/Vol] 12 mg/dL 4-19 [facility] Sodium levelOrdered By: [facility] on 04-30-2025 Sodium [Moles/Vol] 140 mmol/L 133-145 [facility] Troponin T HS 2 HRon 025 Trop T High Sen 1277 ng/L Invalid Interpretation Code <=22 [facility] Comment on above: Result Comment: Crit ical Result(s) Called at 04/30/2025-06:19 by Shahzad Yung.??Results read back by same. Performed By: #### L 499.0042 #### [facility] [place], [address] Troponin T HS 4 HRon 025 Trop T High Sen 1482 ng/L Invalid Interpretation Code <=22 [facility] Comment on above: Result Comment: Crit ical Result(s) Called at 04/30/2025-08:38 by Shahzad Clemente.??Results read back by same. Performed By: #### L 499.0043 #### [facility] [place], [address] Troponin T.cardiac [Mass/vol ume] in Serum or Plasma by High sensitivity methodOrdered By: David Keene on 04-30-2025 Troponin T.cardiac High sensitivity method [Mass/Vol] 1482 ng/L Critically high <22 [facility] Comment on above: Critical Result(s) C alled at 04/30/2025-08:38 by Shahzad Lala to Sparkle Clemente. Results read back by same. Troponin T.cardiac High sensitivity method [Mass/Vol] 1277 ng/L Critically high <22 [facility] Comment on above: Critical Result(s) C alled at 04/30/2025-06:19 by Shahzad Lala to Angel Yung. Results read back by same. Troponin T.cardiac High sensitivity method [Mass/Vol] 189 ng/L Critically high <22 [facility] Comment on above: Critical Result(s) C alled at: by: HAMLET WHITE Results read back by same. White blood cell (WBC) count Ordered By: David Keene on 04-30-2025 WBC (Bld) [#/Vol] 12.4 10*3/uL High 4.4-11.0 [facility] Vital Signs Date Time Vital Sign Value Performing Clinician Malika eduardo 05-18-2025 08:55-0400 Body mass index (BMI) [Ratio] 36.7 kg/m2 Dr. David Keene MD Work Phone: [facility] 05-18-2025 08:08-0400 Body height 175.[address] David Keene MD Work Phone: [facility] 05-18-2025 08:08-0400 Body weight 112.[address] David Keene MD Work Phone: [facility] 05-18-2025 08:05-0400 Diastolic blood pressure 78 mm[Hg] Dr. David Keene MD Work Phone: [facility] 05-18-2025 08:05-0400 Heart rate 62 /min Dr. David Keene MD Work Phone: 6(583)273-285049 [place] [address] 05-18-2025 08:05-0400 Systolic blood pressure 113 mm[Hg] Dr. David Keene MD Work Phone: 7(335)978-745849 [place] [address] 05-09-2025 10:15-0400 Body height 175.[address] David Keene MD Work Phone: 9(809)363-879749 [place] [address] 05-09-2025 10:15-0400 Body mass index (BMI) [Ratio] 36.7 kg/m2 Dr. David Keene MD Work Phone: 5(084)336-126049 [place] [address] 05-09-2025 10:15-0400 Body weight 112.[address] David Keene MD Work Phone: 6(645)884-430949 [place] [address] 05-09-2025 10:15-0400 Diastolic blood pressure 78 mm[Hg] Dr. David Keene MD Work Phone: 2(360)366-664849 [place] [address] 05-09-2025 10:15-0400 Heart rate 62 /min Dr. David Keene MD Work Phone: 0(810)718-745649 [place] [address] 05-09-2025 10:15-0400 Respiratory rate 16 /min Dr. David Keene MD Work Phone: 2(000)802-305549 [place] [address] 05-09-2025 10:15-0400 Systolic blood pressure 113 mm[Hg] Dr. David Keene MD Work Phone: 1(173)275-369349 [place] [address] 05-02-2025 15:11-0400 Body temperature 98 [degF] Dr. David Keene MD Work Phone: 4(853)012-201449 [place] [address] 05-02-2025 15:11-0400 Diastolic blood pressure 89 mm[Hg] Dr. David Keene MD Work Phone: 6(913)711-135349 [place] [address] 05-02-2025 15:11-0400 Heart rate 77 /min Dr. David Keene MD Work Phone: 1(559)586-353949 [place] [address] 05-02-2025 15:11-0400 Respiratory rate 18 /min Dr. David Keene MD Work Phone: 8(771)664-819949 [place] [address] 05-02-2025 15:11-0400 SaO2% (BldA) [Mass fraction] 99 % Dr. David Keene MD Work Phone: 9(177)521-237849 [place] [address] 05-02-2025 15:11-0400 Systolic blood pressure 158 mm[Hg] Dr. David Keene MD Work Phone: 5(951)594-794549 [place] [address] 05-02-2025 04:20-0400 Body mass index (BMI) [Ratio] 38 kg/m2 Dr. David Keene MD Work Phone: 4(597)910-270049 [place] [address] 05-02-2025 04:20-0400 Body weight 116.[address] David Keene MD Work Phone: 7(562)700-174149 [place] [address] 04-30-2025 15:47-0400 Body height 175.[address] David Keene MD Work Phone: 6(633)011-536549 [place] [address] 04-30-2025 15:47-0400 Body mass index (BMI) [Ratio] 38.4 kg/m2 Dr. David Keene MD Work Phone: 4(410)202-617049 [place] [address] 04-30-2025 15:47-0400 Body weight [address] David Keene MD Work Phone: 2(144)944-715449 [place] [address] 04-30-2025 13:50-0400 Body temperature 97 [degF] Dr. David Keene MD Work Phone: 8(429)705-920549 [place] [address] 04-30-2025 13:50-0400 Diastolic blood pressure 133 mm[Hg] Dr. David Keene MD Work Phone: 5(647)191-128149 [place] [address] 04-30-2025 13:50-0400 Heart rate 104 /min Dr. David Keene MD Work Phone: 8(405)895-626649 [place] [address] 04-30-2025 13:50-0400 Respiratory rate 15 /min Dr. David Keene MD Work Phone: 0(114)[phone] [place] [address] 04-30-2025 13:50-0400 SaO2% (BldA) [Mass fraction] 97 % Dr. David Keene MD Work Phone: [facility] 04-30-2025 13:50-0400 Systolic blood pressure 155 mm[Hg] Dr. David Keene MD Work Phone: [facility] 04-30-2025 12:50-0400 Body height 177.[address] David Keene MD Work Phone: [facility] 04-30-2025 12:50-0400 Body mass index (BMI) [Ratio] 36.7 kg/m2 Dr. David Keene MD Work Phone: [facility] 04-30-2025 12:50-0400 Body weight 116.[address] David Keene MD Work Phone: [facility] Encounters Encounter Date Encounter Type Care Provider Facility Start: 07-18-2025 ambulatory [facility] Facility:[facility] Start: 07-06-2025 End: 07-06-2025 ambulatory [facility] Facility:[facility] Start: 06-06-[address] Michael irvera MD -Cardiac Rehab Work Phone: Start: 06-04-2025 End: 06-05-[address] David Keene MD Work Phone: -Cardiac Rehab Start: 06-04-2025 End: 06-05-[address] Michael Elliott MD -Cardiac Rehab Work Phone: Start: 05-18-2025 End: 05-18-[address] David Keene MD Work Phone: -Cardiac Rehab Start: 05-18-2025 End: 05-18-[address] Michael Elliott MD -Cardiac Rehab Work Phone: Start: 05-18-2025 End: 05-18-2025 ambulatory [facility] Facility:[facility] Start: 05-09-2025 End: 05-09-2025 [facility] Start: 05-09-2025 End: 05-09-[address] David Keene MD Work Phone: [facility] Start: 05-02-2025 Non-patient / Non-visit Dr. Deepti Melchor [facility] Work Phone: Start: 05-01-2025 Non-patient / Non-visit Dr. Michael banerjee MD -[facility] Start: 05-01-2025 Non-patient / Non-visit Dr. Deepti Melchor [facility] Work Phone: Start: 04-30-2025 End: 05-02-2025 Evaluation and management of inpatient Dr. Anaid Zavala MD -Intensive Care Unit Work Phone: Start: 04-30-[address] David Keene MD Work Phone: [facility] Start: 04-30-2025 Non-patient / Non-visit Dr. Michael banerjee MD -[facility] Start: 04-30-2025 ambulatory No Primary Car e Physician Facility:[facility] Start: 04-30-2025 Evaluation and management of inpatient Dr. Anaid Zavala MD -Intensive Care Unit Work Phone: Procedures Date Procedure Procedure Detail Performing Clinician Start: 05-02-[address] David Keene MD Work Phone: Start: 05-02-2025 Serum inorganic phos phate measurement Dr. David Keene MD Work Phone: Start: 04-30-2025 Coagulation time, activated Dr. David Keene MD Work Phone: Start: 04-30-[address] David Keene MD Work Phone: Plan of Treatment Date Care Activity Detail Author Start: 06-04-2025 Registered Recurring Registered Recurring -Cardiac Rehab Work Phone: Start: 05-03-2025 Electrocardiographic procedure [facility] Start: 05-02-2025 Patient discharge [facility] Start: 05-02-2025 Electrocardiographic procedure [facility] Start: 05-01-2025 [facility] Start: 05-01-2025 End: 05-01-2025 Electrocardiographic procedure [facility] Start: 05-01-2025 Care planning and problem solving actions [facility] Start: 05-01-2025 Complete blood count [facility] Start: 05-01-2025 Thyroid stimulating hormone measurement [facility] Start: 05-01-2025 Inhalation therapy procedure [facility] Start: 04-30-2025 Oxygen therapy [facility] Start: 04-30-2025 Referral to correctional counselor [facility] Start: 04-30-2025 Tobacco use cessation education [facility] Start: 04-30-2025 Admission procedure [facility] Start: 04-30-2025 Assessment of risk of venous thromboembolism [facility] Start: 04-30-2025 Continuous pulse oximetry [facility] Start: 04-30-2025 Insertion of catheter into peripheral vein [facility] Start: 04-30-2025 Measuring intake and output [facility] Start: 04-30-2025 Providing care according to standard [facility] Start: 04-30-2025 Verification routine [facility] Start: 04-30-2025 Vital signs measurements [facility] Start: 04-30-2025 End: 04-30-2025 [facility] Start: 04-30-2025 Following clinical pathway protocol [facility] Start: 04-30-2025 Electrocardiographic procedure [facility] Start: 04-30-2025 Cardiac monitoring [facility] Start: 04-30-2025 Cardiac rehabilitation - phase 1 [facility] Start: 04-30-2025 Notification of physician [facility] Start: 04-30-2025 Oxygen therapy [facility] Start: 04-30-2025 Patient discharge [facility] Start: 04-30-2025 Pulse taking [facility] Start: 04-30-2025 End: 04-30-2025 [facility] Start: 04-30-2025 Catheterization of left heart [facility] Start: 04-30-2025 Hospital admission, emergency, from emergency room, medical nature [facility] Start: 04-30-2025 [facility] Alanine aminotransfe rase [Enzymatic activity/volume] in Serum or Plasma [facility] Albumin [Mass/volume ] in Serum or Plasma [facility] Alkaline phosphatase [Enzymatic activity/volume] in Serum or Plasma [facility] Anion gap in Serum or Plasma [facility] Anion gap in Serum or Plasma [facility] Bilirubin, total measurement [facility] BUN/Creatinine ratio [facility] BUN/Creatinine ratio [facility] Calcium [Mass/volume ] in Serum or Plasma [facility] Calcium [Mass/volume ] in Serum or Plasma [facility] Carbon dioxide, tota l [Moles/volume] in Central venous blood [facility] Carbon dioxide, tota l [Moles/volume] in Central venous blood [facility] Creatinine [Mass/vol ume] in Serum or Plasma [facility] Creatinine [Mass/vol ume] in Serum or Plasma [facility] Erythrocyte mean cor puscular volume determination [facility] Glucose [Mass/volume ] in Serum or Plasma [facility] Glucose [Mass/volume ] in Serum or Plasma [facility] Hematocrit [Volume F raction] of Blood [facility] Hemoglobin [Mass/vol ume] in Blood [facility] Leukocytes [#/volume] in Blood [facility] Mean corpuscular hem oglobin concentration determination [facility] Mean corpuscular hem oglobin determination [facility] Measurement of renal function [facility] Measurement of renal function [facility] Platelets [#/volume] in Blood [facility] Potassium measurement [facility] Potassium measurement [facility] Red blood cell count [facility] Red cell distributio n width determination [facility] Serum chloride measurement [facility] Serum chloride measurement [facility] Sodium measurement [facility] Sodium measurement [facility] Total protein measurement [facility] Troponin T.cardiac [Mass/volume] in Serum or Plasma by High sensitivity method [facility] Troponin T.cardiac [Mass/volume] in Serum or Plasma by High sensitivity method [facility] Troponin T.cardiac [Mass/volume] in Serum or Plasma by High sensitivity method [facility] Urea nitrogen [Mass/ volume] in Serum or Plasma [facility] Urea nitrogen [Mass/ volume] in Serum or Plasma [facility] Payers Date Payer Category Payer Self-pay 2025 Unknown [id number] 2012 Unknown [id number] Unknown [id number] 2.16.8 [id number] Unknown [id number] 2.16.8 [id number] Unknown [id number] 2.16.8 [id number] Unknown [id number] 2.16.8 [id number] Unknown [id number] 2.16.8 [id number] Unknown [id number] 2.16.8 [id number] Unknown [id number] 2.16.8 [id number] Unknown [id number] 2.16.8 [id number] Unknown [id number] 2.16.8 [id number] Unknown [id number] 2.16.8 [id number] Unknown [id number] 2.16.8 [id number] Social History Date Type Detail Facility Start: 04-30-2025 End: 05-18-2025 Tobacco smoking status NHIS Never smoked tobacco (finding) [facility] Start: 1960 Sex Assigned At Male [place] Sex Male [facility] Medical Equipment Procedure Code Equipment Code Equipment Origin al Text Equipment Identifier Dates Drug-eluting coronary artery stent, [id number] [id number]-coated ([id number] FDA Start: 04-30-2025 Goals Date Patient Goal Desired Activity /State Functional Status Date Assessment Result Facility 05-02-2025 Functional status [facility] Work Phone: Mental Status Date Assessment Result Facility 05-02-2025 Cognitive function Voice/Name [facility] Work Phone: 04-30-2025 Cognitive function Voice/Name [facility] Work Phone: Clinical Notes 04-30-2025 to 05-02-2025 Note Date & Type Note Facility 05-02-2025 Discharge summary Note Date/Time May 02, 2025 2:11pm [facility] Medical Records Department [address] [place] [address] Discharge Summary 05/02/25 0840 MR#: [id number] Acct: [id number] Name: ALBERT ANDRADE Rep #:[id number] : 1960 64 From: Deepti Melchor DO PCP: Care Physician,No Primary Status :ADM IN Location: [facility] [id number] Providers Date of Admission: 04/30/25 Date of Discharge: 05/02/25 Primary Care Physician: No Primary Care Phys Consultations 04/30/25 16:22 Consult: Cardiology Routine Consulting Provider: Michael Elliott Reason for Consult: Chest Pain EMERGENT Consult: No MD Notified: Yes Date Notified: 04/30/25 Time Notified: 16:22 Method of Notification: ED Physician Initiated Reason For Visit: ACS Diagnosis Discharge Diagnosis (1) ACS (acute coronary syndrome): Status: Acute Code(s): I24.9 - Acute ischemic heart disease, unspecified (2) Stented coronary artery: Status: Chronic Code(s): Z95.5 - Presence of coronary angioplasty implant and graft (3) Atherosclerotic heart disease of [place] coronary artery without angina pectoris: Status: Chronic Code(s): I25.10 - Atherosclerotic heart disease of [place] coronary artery without angina pectoris Medications at Discharge Home Medications aspirin 81 mg tablet,delayed release 81 mg PO BREAKFAST #0 tabs 05/02/25 atorvastatin 80 mg tablet 80 mg PO QHS #30 tabs 05/02/25 carvedilol 12.5 mg tablet 12.5 mg PO BIDCM #60 tabs 05/02/25 clopidogrel 75 mg tablet (Plavix) 75 mg PO DAILY #30 tabs 05/02/25 lisinopril 20 mg tablet 20 mg PO DAILY #30 tabs 05/02/25 Hospital Course Operations None Procedures 2-D Echocardiogram, Cardiac catheterization and EKG Summary of Care Provided Minutes Spent on Discharge: 38 Hospital Course: Mr. Andrade is a 64-year-old white male who presented to the emergency department [facility] on 05/02/2025 with a chief complaint of ongoing indigestion. He reported that he been having symptoms for 2 to 3 weeks and initially got it when he was moving logs. It was substernal and he had some shortness of breath but symptoms resolved after he stopped doing exertion. Prior to presentation he was having difficulty breathing and sleeping and complained of retrosternal indigestion radiating to his back which ultimately prompted him to present to emergency department. Vital signs on presentation showed temperature of 97, heart rate 88, blood pressure was initially 214/107, respiratory rate 16 and pulse ox was 100% on room air. CBC was overtly unremarkable, BMP was overtly unremarkable other than a nonfasting blood glucoseof 171. Initial troponin was 189. EKG showed waxing and waning abnormalities. Initially it was thought to be an acute STEMI however cardiology reviewed the case and did not think it was a STEMI. The patient then went to [facility] so he was taken to [facility] due to ongoing symptoms. During cardiac catheterization he was noted to have 100% occlusion of the RCA at which time a long large drug-eluting stent was placed. He was also noted to have disease in the LAD proximally and mid LAD which has been recommended for staged procedure as an outpatient. He was initially placed on aspirin and Brilinta but due to side effects of Brilinta that he reviewed prior to discharge he wanted to transition to Plavix. This was discussed with cardiology and they loaded him with 300 mg of Plavix and we sent him with 75 mg daily in addition to the aspirin. He was placed on Coreg 12.5 mg and lisinopril 20 mg daily for his blood pressure and started on atorvastatin 80 mg daily. All prescriptions were sent to local pharmacy prior to discharge. An echocardiogram was performed and showed no wallmotion abnormality with an EF of 65 to 70%. He had no reperfusion arrhythmias and was able to be discharged in stable condition on 05/02/2025. Lipid panel didshow a total cholesterol 143, LDL 73, HDL 51 and triglycerides of 98. Hemoglobin A1c was 62. Follow-up appointment was made with Dr. Hanna to be seenon May 09 and I have referred him to [facility] to see Clare Beltran NP. He currently does not have a primary care physician. Discharge diagnoses: NSTEMI type I Acute coronary syndrome Insulin resistance Essential hypertension Hyperlipidemia CAD Leukocytosis Obesity Physical Exam Const alert, oriented x3, no apparent distress, no limitations and well nourished; Negative for average body habitus Constitutional Narrative: Obese, upper middle-aged, white male, walking around room, at bedside, appears comfortable, nontoxic, cooperative General Appearance: cooperative, comfortable, well kempt and well developed Exam Limitations: no limitations Nutritional Appearance: obese HEENT normocephalic, head/scalp atraumatic, hearing grossly normal bilaterally and moist oral mucous membranes HEENT Narrative: Mallampati 3 Eyes conjunctivae normal Eyes Narrative: scleral icterus Neck supple Neck Narrative: trachea midline Resp normal respiratory effort, no retractions, no use of accessory muscles and clearto auscultation bilaterally Auscultation: Negative for rales, rhonchi or wheezes Cardio regular rate, regular rhythm, S1 normal heart sound, S2 normal heart sound, no murmurs, no rub, no gallops and no clicks GI normal to inspection, nondistended, normoactive bowel sounds, soft to palpation and non-tender Extremity no clubbing, cyanosis or edema Extremity Narrative: 2+ pedal and radial pulses, post cath site is clean dry and intact Skin no jaundice, no petechiae and no mottling Neuro oriented x3, moves all extremities and no focal motor deficits Speech: speech normal Psych affect normal Psych Narrative: Extremely pleasant, interacts appropriately Weight / BMI Weight Weight: 116.4 kg Body Mass Index (BMI) 38.0 ABG / Lab / Microbiology Data 05/02/25 06:33 05/02/25 06:33 Laboratory: Laboratory Results - last 24 hr 05/02/25 06:33: WBC 11.2 H, RBC 4.58 L, Hgb 13.3, Hct 39.3 L, MCV 85.8, MCH 29.0, MCHC 33.8, RDW Std Deviation 44.7 H, RDW Coeff of Sonia 14.3, Plt Count 195,MPV 9.9, Immature Gran % (Auto) 0.500, Neut % (Auto) 67.0, Lymph % (Auto) 24.1, Milam % (Auto) 7.4, Eos % (Auto) 0.6, Baso % (Auto) 0.4, Absolute Neuts (auto) 7.5, Absolute Lymphs (auto) 2.70, Nucleated RBC % 0, Sodium 137, Potassium 3.8, Chloride 107, Carbon Dioxide 18.8 L, Anion Gap 12, BUN 14, Creatinine 0.80, Estim Creat Clear Calc 117.40, Est GFR (MDRD) Non-Af 99, BUN/Creatinine Ratio 16.8, Glucose 104 H, Calcium 8.3, Phosphorus 1.7 L, Magnesium 2.3 H Radiography Diagnostic Testing: Radiology Impression Echocardiogram 04/30/25 16:21 Interpretation Summary The estimated ejection fraction is 60 %. Mild hypokensis of the inferior wall. Stage 1 diastolic dysfunction. Mild (1+) mitral valve insufficiency. No previous echo to compare. Ordering Physician: Anaid Zavala Referring Physician: Michael Elliott Performed By: Shandra Cosme RDCS D/C Instructions Discharge Activity: Return to Normal Activity Return to work on: 05/03/25 Lifting Restrictions: 10 lbs x 48 hrs and then back to baseline DC O2, CPAP, BIPAP Needs Home O2 Discharge instructions: No Meaningful Use Info Meaningful Use Meaningful Use Diagnoses (Choose all that apply): None applicable and AMI AMI/Post PCI/Angioplasty Aspirin given w/in 24hrs of arrival?: Yes ASA at discharge?: Yes Antiplatelet Therapy at Discharge:: Yes Statins at discharge?: Yes Anson/ARB at discharge?: Yes Beta Allan at discharge?: Yes Done w/ Acute IL measure.: Yes Documented LVEF (%): 65 Discharge Plan Admission Admit Date/Time: 04/30/25 16:21 Primary Reason for Your Visit: Chest Pain Attending Provider: Deepti Melchor Primary Care Provider: Care Physician,No Primary Consulting Providers: Anaid Zavala; Michael Elliott Discharge Orders/Prescriptions Prescriptions: New atorvastatin 80 mg Tablet 80 mg PO QHS Qty: 30 0RF aspirin 81 mg Tablet,Delayed Release (Dr/Ec) 81 mg PO BREAKFAST Qty: 0 0RF carvedilol 12.5 mg Tablet 12.5 mg PO BIDCM Qty: 60 0RF lisinopril 20 mg Tablet 20 mg PO DAILY Qty: 30 0RF clopidogrel [Plavix] 75 mg tablet 75 mg PO DAILY Qty: 30 0RF Referrals / Follow Up: Samir Hanna MD [Med Staff - Active Staff] - 05/09/25 10:00 am (APPOINTMENT WITHPRETTY Allison.PRashawn) Care Physician,No Primary [Primary Care Provider] - Disposition Disposition (needs filled in before D/C Order can be placed): Home, Self Care Charges/Coding Visit Charges Inpatient E&M: 90952 Disch Hosp >30min 05/02/25 1411 <Electronically signed by Deepti Melchor DO> Cosigner Signature (if applicable): CC: [facility] AGRICULTURAL [employer]ENT-C Clare Beltran; Dr. Samir Hanna MD; Dr. Deepti Melchor DO; No Primary Care Physician~ Signed [facility] Work Phone: 1(103) 397-948408-27-2025 Consult note [facility] Medical Records Department [address] [place] [address] Counseling Note - Pharmacy 05/02/25 1538 MR#: [id number] Acct: [id number] Name: ALBERT ANDRADE Rep #:[id number] : 1960 64 From: Jacy Ying PCP: Care Physician,No Primary Status :ADM IN Location: [place] [address] Pharmacy [place] Med Rec Counseling Pharmacy Service has performed discharge medication reconciliation and counseling for this patient. 1. ASPIRIN 81MG PO BREAKFAST 2. ATORVASTATIN 80MG PO QHS 3. CARVEDILOL 3.125MG PO BID 4. CLOPIDOGREL 75MG PO DAILY 5. LISINOPRIL 20MG PO DAILY The patient's discharge medication list was reviewed for discrepancies and discrepancies were resolved. The patient was counseled on the following discharge medications and changes in medications for homegoing were reviewed. The Reason for Use, instructions for use, and potential side effects were reviewed for all new medications. The patient's questions regarding all of their medications were answered. The patient was able to verbally demonstrate an understanding of their dischargemedications. Medications at Discharge Home Medications aspirin 81 mg tablet,delayed release 81 mg PO BREAKFAST #0 tabs 05/02/25 atorvastatin 80 mg tablet 80 mg PO QHS #30 tabs 05/02/25 carvedilol 12.5 mg tablet 12.5 mg PO BIDCM #60 tabs 05/02/25 clopidogrel 75 mg tablet (Plavix) 75 mg PO DAILY #30 tabs 05/02/25 lisinopril 20 mg tablet 20 mg PO DAILY #30 tabs 05/02/25 05/02/25 1539 Date _ Jacy Hampton Signature (if applicable): Date CC: ~ Signed [facility]08-27-2025 Discharge summary [facility] Medical Records Department [address] [place] [address] Discharge Summary 05/02/25 0840 MR#: [id number] Acct: [id number] Name: ALBERT ANDRADE Rep #:[id number] : 1960 64 From: Deepti Melchor DO PCP: Care Physician,No Primary Status :ADM IN Location: [place] [id number]- [id number] Providers Date of Admission: 04/30/25 Date of Discharge: 05/02/25 Primary Care Physician: No Primary Care Phys Consultations 04/30/25 16:22 Consult: Cardiology Routine Consulting Provider: Michael Elliott Reason for Consult: Chest Pain EMERGENT Consult: No MD Notified: Yes Date Notified: 04/30/25 Time Notified: 16:22 Method of Notification: ED Physician Initiated Reason For Visit: ACS Diagnosis Discharge Diagnosis (1) ACS (acute coronary syndrome): Status: Acute Code(s): I24.9 - Acute ischemic heart disease, unspecified (2) Stented coronary artery: Status: Chronic Code(s): Z95.5 - Presence of coronary angioplasty implant and graft (3) Atherosclerotic heart disease of [place] coronary artery without angina pectoris: Status: Chronic Code(s): I25.10 - Atherosclerotic heart disease of [place] coronary artery without angina pectoris Medications at Discharge Home Medications aspirin 81 mg tablet,delayed release 81 mg PO BREAKFAST #0 tabs 05/02/25 atorvastatin 80 mg tablet 80 mg PO QHS #30 tabs 05/02/25 carvedilol 12.5 mg tablet 12.5 mg PO BIDCM #60 tabs 05/02/25 clopidogrel 75 mg tablet (Plavix) 75 mg PO DAILY #30 tabs 05/02/25 lisinopril 20 mg tablet 20 mg PO DAILY #30 tabs 05/02/25 Hospital Course Operations None Procedures 2-D Echocardiogram, Cardiac catheterization and EKG Summary of Care Provided Minutes Spent on Discharge: 38 Hospital Course: Mr. Andrade is a 64-year-old white male who presented to the emergency department [facility] on 05/02/2025 with a chief complaint of ongoing indigestion. He reported that he been having symptoms for 2 to 3 weeks and initially got it when he was moving logs. It was substernal and he hadsome shortness of breath but symptoms resolved after he stopped doing exertion. Prior to presentation he was having difficulty breathing and sleeping and complained of retrosternal indigestion radiating to his back which ultimately prompted him to present to emergency department. Vital signs on presentation showed temperature of 97, heart rate 88, blood pressure was initially 214/107, respiratoryrate 16 and pulse ox was 100% on room air. CBC was overtly unremarkable, BMP was overtly unremarkable other than a nonfasting blood glucoseof 171. Initial troponin was 189. EKG showed waxing and waning abnormalities. Initially it was thought to be an acute STEMI however cardiology reviewed the caseand did not think it was a STEMI. The patient then went to [facility] so he was taken to [facility] dueto ongoing symptoms. During cardiac catheterization he was noted to have 100% occlusion of the RCA at which time a long large drug-eluting stent was placed. He was also noted to have disease in the LAD proximally and mid LAD which has been recommended for staged procedure as an outpatient. He was initially placed on aspirin and Brilinta but due to side effects of Brilinta that he reviewed prior to discharge he wanted to transition to Plavix. This was discussed with cardiology and they loaded him with 300 mg of Plavix and we sent him with 75 mg daily in addition to the aspirin. He was placed on Coreg 12.5 mg and lisinopril 20 mg daily for his blood pressure and started on atorvastatin 80 mg daily. All prescriptions were sent to local pharmacy prior to discharge. An echocardiogram was performed and showed no wallmotion abnormality with an EF of 65 to 70%. He had no reperfusion arrhythmiasand was able to be discharged in stable condition on 05/02/2025. Lipid panel didshow a total cholesterol 143, LDL 73, HDL 51 and triglycerides of 98. Hemoglobin A1c was 62. Follow-up appointment was made with Dr. Hanna to be seenon May 09 and I have referred him to [facility] to see Clare Beltran NP. He currently does not have a primary care physician. Discharge diagnoses: NSTEMI type I Acute coronary syndrome Insulin resistance Essential hypertension Hyperlipidemia CAD Leukocytosis Obesity Physical Exam Const alert, oriented x3, no apparent distress, no limitations and well nourished; Negative for average body habitus Constitutional Narrative: Obese, upper middle-aged, white male, walking around room, at bedside, appears comfortable, nontoxic, cooperative General Appearance: cooperative, comfortable, well kempt and well developed Exam Limitations: no limitations Nutritional Appearance: obese HEENT normocephalic, head/scalp atraumatic, hearing grossly normal bilaterally and moist oral mucous membranes HEENT Narrative: Mallampati 3 Eyes conjunctivae normal Eyes Narrative: scleral icterus Neck supple Neck Narrative: trachea midline Resp normal respiratory effort, no retractions, no use of accessory muscles and clearto auscultation bilaterally Auscultation: Negative for rales, rhonchi or wheezes Cardio regular rate, regular rhythm, S1 normal heart sound, S2 normal heart sound, no murmurs, no rub, no gallops and no clicks GI normal to inspection, nondistended, normoactive bowel sounds, soft to palpation and non-tender Extremity no clubbing, cyanosis or edema Extremity Narrative: 2+ pedal and radial pulses, post cath site is clean dry and intact Skin no jaundice, no petechiae and no mottling Neuro oriented x3, moves all extremities and no focal motor deficits Speech: speech normal Psych affect normal Psych Narrative: Extremely pleasant, interacts appropriately Weight / BMI Weight Weight: 116.4 kg Body Mass Index (BMI) 38.0 ABG / Lab / Microbiology Data 05/02/25 06:33 05/02/25 06:33 Laboratory: Laboratory Results - last 24 hr 05/02/25 06:33: WBC 11.2 H, RBC 4.58 L, Hgb 13.3, Hct 39.3 L, MCV 85.8, MCH 29.0, MCHC 33.8, RDW Std Deviation 44.7 H, RDW Coeff of Sonia 14.3, Plt Count 195,MPV 9.9, Immature Gran % (Auto) 0.500, Neut% (Auto) 67.0, Lymph % (Auto) 24.1, Milam % (Auto) 7.4, Eos % (Auto) 0.6, Baso % (Auto) 0.4, Absolute Neuts (auto) 7.5, Absolute Lymphs (auto) 2.70, Nucleated RBC % 0, Sodium 137, Potassium 3.8, Chloride 107, Carbon Dioxide 18.8 L, Anion Gap 12, BUN 14, Creatinine 0.80, Estim Creat Clear Calc 117.40, Est GFR (MDRD) Non-Af 99, BUN/Creatinine Ratio 16.8, Glucose 104 H, Calcium 8.3, Phosphorus 1.7 L, Magnesium 2.3 H Radiography Diagnostic Testing: Radiology Impression Echocardiogram 04/30/25 16:21 Interpretation Summary The estimated ejection fraction is 60 %. Mild hypokensis of the inferior wall. Stage 1 diastolic dysfunction. Mild (1+) mitral valve insufficiency. No previous echo to compare. Ordering Physician: Anaid Zavala Referring Physician: Michael Elliott Performed By: Shandra Cosme RDCS D/C Instructions Discharge Activity: Return to Normal Activity Return to work on: 05/03/25 Lifting Restrictions: 10 lbs x 48 hrs and then back to baseline DC O2, CPAP, BIPAP Needs Home O2 Discharge instructions: No Meaningful Use Info Meaningful Use Meaningful Use Diagnoses (Choose all that apply): None applicable and AMI AMI/Post PCI/Angioplasty Aspirin given w/in 24hrs of arrival?: Yes ASA at discharge?: Yes Antiplatelet Therapy at Discharge:: Yes Statins at discharge?: Yes Anson/ARB at discharge?: Yes Beta Allan at discharge?: Yes Done w/ Acute IL measure.: Yes Documented LVEF (%): 65 Discharge Plan Admission Admit Date/Time: 04/30/25 16:21 Primary Reason for Your Visit: Chest Pain Attending Provider: Deepti Melchor Primary Care Provider: Care Physician,No Primary Consulting Providers: Anaid Zavala; Michael Elliott Discharge Orders/Prescriptions Prescriptions: New atorvastatin 80 mg Tablet 80 mg PO QHS Qty: 30 0RF aspirin 81 mg Tablet,Delayed Release (Dr/Ec) 81 mg PO BREAKFAST Qty: 0 0RF carvedilol 12.5 mg Tablet 12.5 mg PO BIDCM Qty: 60 0RF lisinopril 20 mg Tablet 20 mg PO DAILY Qty: 30 0RF clopidogrel [Plavix] 75 mg tablet 75 mg PO DAILY Qty: 30 0RF Referrals / Follow Up: Samir Hanna MD [Med Staff - Active Staff] - 05/09/25 10:00 am (APPOINTMENT WITHPRETTY FLORES N.P.) Care Physician,No Primary [Primary Care Provider] - Disposition Disposition (needs filled in before D/C Order can be placed): Home, Self Care Charges/Coding Visit Charges Inpatient E&M: 96440 Disch Hosp >30min 05/02/25 1411 Cosigner Signature (if applicable): CC: [facility] [employer]IC[employer]URAL AGENT-C Clare Beltran; Dr. Samir Hanna MD; Dr. Deepti Melchor, ; No Primary Care Physician~ Signed [facility]08-27-2025 Hospital Discharge instructionsAdditional Instructions Date of Discharge: [place] Work Phone: 1(481) 882-267108-27-2025 [facility] Medical Records Department [address] [place] [address] Discharge Summary 05/02/25 0840 MR#: [id number] Acct: [id number] Name: ALBERT ANDRADE Rep #: [id number] : 1960 64 From: Deepti Melchor DO PCP: Care Physician,No Primary Status:ADM [facility] Date of Admission: 04/30/25 Date of Discharge: 05/02/25 Primary Care Physician: No Primary Care Phys Consultations 04/30/25 16:22 Consult: Cardiology Routine Consulting Provider: Michael Elliott Reason for Consult: Chest Pain EMERGENT Consult: No MD Notified: Yes Date Notified: 04/30/25 Time Notified: 16:22 Method of Notification: ED Physician Initiated Reason For Visit: ACS Diagnosis Discharge Diagnosis (1) ACS (acute coronary syndrome): Status: Acute Code(s): I24.9 - Acute ischemic heart disease, unspecified (2) Stented coronary artery: Status: Chronic Code(s): Z95.5 - Presence of coronary angioplasty implant and graft (3) Atherosclerotic heart disease of [place] coronary artery without angina pectoris: Status: Chronic Code(s): I25.10 - Atherosclerotic heart disease of [place] coronary artery without angina pectoris Medications at Discharge Home Medications aspirin 81 mg tablet,delayed release 81 mg PO BREAKFAST #0 tabs 05/02/25 atorvastatin 80 mg tablet 80 mg PO QHS #30 tabs 05/02/25 carvedilol 12.5 mg tablet 12.5 mg PO BIDCM #60 tabs 05/02/25 clopidogrel 75 mg tablet (Plavix) 75 mg PO DAILY #30 tabs 05/02/25 lisinopril 20 mg tablet 20 mg PO DAILY #30 tabs 05/02/25 Hospital Course Operations None Procedures 2-D Echocardiogram, Cardiac catheterization and EKG Summary of Care Provided Minutes Spent on Discharge: 38 Hospital Course: Mr. Andrade is a 64-year-old white male who presented to the emergency department [facility] on 05/02/2025 with a chief complaint of ongoing indigestion. He reported that he been having symptoms for 2 to 3 weeks and initially got it when he was moving logs. It was substernal and he had some shortness of breath but symptoms resolved after he stopped doing exertion. Prior to presentation he was having difficulty breathing and sleeping and complained of retrosternal indigestion radiating to his back which ultimately prompted him to present to emergency department. Vital signs on presentation showed temperature of 97, heart rate 88, blood pressure was initially 214/107, respiratory rate 16 and pulse ox was 100% on room air. CBC was overtly unremarkable, BMP was overtly unremarkable other than a nonfasting blood glucose of 171. Initial troponin was 189. EKG showed waxing and waning abnormalities. Initially it was thought to be an acute STEMI however cardiology reviewed the case and did not think it was a STEMI. The patient then went to [facility] so he was taken to [facility] due to ongoing symptoms. During cardiac catheterization he was noted to have 100% occlusion of the RCA at which time a long large drug-eluting stent was placed. He was also noted to have disease in the LAD proximally and mid LAD which has been recommended for staged procedure as an outpatient. He was initially placed on aspirin and Brilinta but due to side effects of Brilinta that he reviewed prior to discharge he wanted to transition to Plavix. This was discussed with cardiology and they loaded him with 300 mg of Plavix and we sent him with 75 mg daily in addition to the aspirin. He was placed on Coreg 12.5 mg and lisinopril 20 mg daily for his blood pressure and started on atorvastatin 80 mg daily. All prescriptions were sent to local pharmacy prior to discharge. An echocardiogram was performed and showed no wall motion abnormality with an EF of 65 to 70%. He had no reperfusion arrhythmias and was able to be discharged in stable condition on 05/02/2025. Lipid panel did show a total cholesterol 143, LDL 73, HDL 51 and triglycerides of 98. Hemoglobin A1c was 62. Follow-up appointment was made with Dr. Hanna to be seen on May 09 and I have referred him to [facility] to see Clare Beltran NP. He currently does not have a primary care physician. Discharge diagnoses: NSTEMI type I Acute coronary syndrome Insulin resistance Essential hypertension Hyperlipidemia CAD Leukocytosis Obesity Physical Exam Const alert, oriented x3, no apparent distress, no limitations and well nourished; Negative for average body habitus Constitutional Narrative: Obese, upper middle-aged, white male, walking around room, at bedside, appears comfortable, nontoxic, cooperative General Appearance: cooperative, comfortable, well kempt and well developed Exam Limitations: no limitations Nutritional Appearance: obese HEENT normocephalic, head/scalp atraumatic, hearing grossly normal bilaterally and moist oral mucous membranes HEENT Narrative: Mallampati 3 (more content not included)...[facility]08-26-2025 Progress note Author Michael Elliott [facility] Note Date/Time May 01, 2025 1: 04pm [facility] Medical Records Department [address] [place] [address] Progress Note - Cardiology 05/01/25 1258 MR#: [id number] Acct: [id number] Name: ALBERT ANDRADE Rep #:[id number] : 1960 64 From: Michael Elliott MD PCP: Care Physician,No Primary Status :ADM IN Location: ICU CVICU 1-1 Subjective Subjective I saw the patient at bedside today he is feeling comfortable does not have any active chest pain. Objective Data Vital Signs: Vital Signs Temp Pulse Resp BP Pulse Ox O2 Del Method 99.3 F H 91 19 H 139/72 H 97 Room Air 05/01/25 09:00 05/01/25 11:37 05/01/25 09:00 05/01/25 09:00 05/01/25 09:00 05/01/25 09:00 Oxygen Delivery Method Room Air Weight: 259 lb 14.8 oz Body Mass Index (BMI) 38.5 Intake & Output: Intake and Output for Last 24 Hours 04/29/25 04/30/25 05/01/25 23:59 23:59 23:59 Intake Total 167.5 / 167.5 978.53 / 978.53 Output Total 0 / 0 Balance 167.5 / 167.5 978.53 / 978.53 Lab / Micro Data 05/01/25 04:13 05/01/25 04:13 Labs: Laboratory Results - last 24 hr 04/30/25 13:04: Activated Clotting Time 205 H 04/30/25 13:10: WBC 12.4 H, RBC 5.39, Hgb 15.7, Hct 46.0, MCV 85.3, MCH 29.1, MCHC 34.1, RDW Std Deviation 42.8, RDW Coeff of Sonia 13.9, Plt Count 242, MPV 9.5, Immature Gran % (Auto) 0.500, Neut % (Auto) 64.3, Lymph % (Auto) 26.6, Milam% (Auto) 7.4, Eos % (Auto) 0.6, Baso % (Auto) 0.6, Absolute Neuts (auto) 8.0 H, Absolute Lymphs (auto) 3.31, Nucleated RBC % 0, PT 15.1 H, INR 1.2, APTT 30.2, Sodium 140, Potassium 3.6, Chloride 104, Carbon Dioxide 22.3, Anion Gap 14, BUN 12, Creatinine 0.88, Estim Creat Clear Calc 108.25, Est GFR (MDRD) Non-Af 96, BUN/Creatinine Ratio 13.9, Glucose 171 H, Calcium 9.5, Troponin T High Sens 189 H* 04/30/25 13:48: Activated Clotting Time 360 H 04/30/25 17:40: Troponin T Hi Sens 2 Hr 1277 H* 04/30/25 19:50: Troponin T Hi Sens 4Hr 1482 H* 05/01/25 04:13: WBC 14.6 H, RBC 4.47 L, Hgb 13.0, Hct 38.5 L, MCV 86.1, MCH 29.1, MCHC 33.8, RDW Std Deviation 44.4 H, RDW Coeff of Sonia 14.1, Plt Count 224,MPV 9.7, Sodium 141, Potassium 3.6, Chloride 109 H, Carbon Dioxide 21.4, Anion Gap 10, BUN 11, Creatinine 0.87, Estim Creat Clear Calc 108.73, Est GFR (MDRD) Non-Af 96, BUN/Creatinine Ratio 12.8, Glucose 116 H, Hemoglobin A1c 6.2 H, Calcium 8.4, Total Bilirubin 0.76, AST 73 H, ALT 24, Alkaline Phosphatase 64, Total Protein 6.3, Albumin 3.9, Globulin 2.4, Albumin/Globulin Ratio 1.6, Triglycerides 98, Cholesterol 143, LDL Cholesterol, Calc 73, VLDL Cholesterol 20, HDL Cholesterol 51, Cholesterol/HDL Ratio 2.81, TSH 2.510 Cardiology Labs/Tests 04/30/25 13:10: WBC 12.4 H, RBC 5.39, Hgb 15.7, Hct 46.0, MCV 85.3, MCH 29.1, MCHC 34.1, Plt Count 242, MPV 9.5, Immature Gran % (Auto) 0.500, Neut % (Auto) 64.3, Lymph % (Auto) 26.6, [place] % (Auto) 7.4, Eos % (Auto) 0.6, Baso % (Auto) 0.6, Absolute Neuts (auto) 8.0 H, Nucleated RBC % 0, PT 15.1 H, INR 1.2, APTT 30.2, Sodium 140, Potassium 3.6, Chloride 104, Carbon Dioxide 22.3, Anion Gap 14, BUN 12, Creatinine 0.88, Est GFR (MDRD) Non-Af 96, BUN/Creatinine Ratio 13.9, Glucose 171 H, Calcium 9.5 05/01/25 04:13: WBC 14.6 H, RBC 4.47 L, Hgb 13.0, Hct 38.5 L, MCV 86.1, MCH 29.1, MCHC 33.8, Plt Count 224, MPV 9.7, Sodium 141, Potassium 3.6, Chloride 109H, Carbon Dioxide 21.4, Anion Gap 10, BUN 11, Creatinine 0.87, Est GFR (MDRD) Non-Af 96, BUN/Creatinine Ratio 12.8, Glucose 116 H, Hemoglobin A1c 6.2 H, Calcium 8.4, Total Bilirubin 0.76, Triglycerides 98, Cholesterol 143, VLDL Cholesterol 20, HDL Cholesterol 51, Cholesterol/HDL Ratio 2.81 Rhythm: EKG: ECHO: Stress Test: Cardiac Cath: PCI: CT Surgery: Holter monitor: EPS: PPM: CXR: Chest CT Scan: Radiography Diagnostic Testing: Radiology Impression Echocardiogram 04/30/25 13:46 Interpretation Summary The estimated ejection fraction is 65???70 %. Limited transthoracic echocardiogram with inferior hypokinesia. No prior echocardiogram to compare. Ordering Physician: Samir Hanna Referring Physician: Michael Elliott Performed By: Ofelia Page RCS Physical Exam Cardio Cardio Narrative: clinical research monitor reveals normal sinus Cardiac exam S1-S2 is regular No systolic or diastolic murmur Chest exam is clear to auscultation bilateral Examination lower extremity pedal pulses within normal No lower extremity edema. Assessment & Plan Assessment/Plan (1) ACS (acute coronary syndrome): (2) Stented coronary artery: (3) Atherosclerotic heart disease of [place] coronary artery without angina pectoris: PLAN: Cardiac care plan and recommendations; 64-year-old patient with symptoms of chest pain Has dynamic change in the EKG with evidence of recent inferior IL And occluded proximal large RCA Underwent successful PCI using drug-eluting stent We used 4.5 x 30 mm resolute [place] drug-eluting stent and achieve an excellent result Post PCI patient remains stable clinically. Has an echocardiogram which showed LV function preserved ejection fraction of 65to 70% hyperdynamic left ventricle With inferior hypokinesia No significant valve abnormality Angiographic study revealed left main is normal angiographically bifurcating in the LAD and left circumflex Has a mid lesion in the LAD at the site of ostial lesion of the D1. This is a moderate size vessel does not reach all the way to the apex The RCA was large dominant. Bifurcating into posterolateral and RPDA. Conclusion recommendation patient is stable clinically he will be transferred tothe progressive care unit. With the plan of continue on dual antiplatelet therapy with Brilinta 90 mg twicedaily in addition to low-dose aspirin. On guideline directed medical therapy with a high-dose statin. Patient will be scheduled for cardiac rehab program, at [facility] If he remains stable he can be discharged home from progressive care unit and tofollow-up with the cardiology group here at [facility] I did discuss the findings of the cardiac catheterization in detail with the the patient and the family at bedside Michael Elliott MD,[facility] rug washer 05/01/25 0618 <Electronically signed by Michael Elliott MD> Cosigner Signature (if applicable): CC: ~ Signed [facility] Work Phone: 1(890) 671-315308-26-2025 Progress note [facility] Medical Records Department [address] [place] [address] Progress Note - Cardiology 05/01/25 1258 MR#: [id number] Acct: [id number] Name: ALBERT ANDRADE Rep #:[id number] : 1960 64 From: Michael Elliott MD PCP: Care Physician,No Primary Status :ADM IN Location: ICU CVICU20 1-1 Subjective Subjective I saw the patient at bedside today he is feeling comfortable does not have any active chest pain. Objective Data Vital Signs: Vital Signs Temp Pulse Resp BP Pulse Ox O2 Del Method 99.3 F H 91 19 H 139/72 H 97 Room Air 05/01/25 09:00 05/01/25 11:37 05/01/25 09:00 05/01/25 09:00 05/01/25 09:00 05/01/25 09:00 Oxygen Delivery Method Room Air Weight: 259 lb 14.8 oz Body Mass Index (BMI) 38.5 Intake & Output: Intake and Output for Last 24 Hours 04/29/25 04/30/25 05/01/25 23:59 23:59 23:59 Intake Total 167.5 / 167.5 978.53 / 978.53 Output Total 0 / 0 Balance 167.5 / 167.5 978.53 / 978.53 Lab / Micro Data 05/01/25 04:13 05/01/25 04:13 Labs: Laboratory Results - last 24 hr 04/30/25 13:04: Activated Clotting Time 205 H 04/30/25 13:10: WBC 12.4 H, RBC 5.39, Hgb 15.7, Hct 46.0, MCV 85.3, MCH 29.1, MCHC 34.1, RDW Std Deviation 42.8, RDW Coeff of Sonia 13.9, Plt Count 242, MPV 9.5, Immature Gran % (Auto) 0.500, Neut % (Auto) 64.3, Lymph % (Auto) 26.6, Milam% (Auto) 7.4, Eos % (Auto) 0.6, Baso % (Auto) 0.6, Absolute Neuts (auto) 8.0 H, Absolute Lymphs (auto) 3.31, Nucleated RBC % 0, PT 15.1 H, INR 1.2, APTT 30.2, Sodium 140, Potassium 3.6, Chloride 104, Carbon Dioxide 22.3, Anion Gap 14, BUN 12, Creatinine 0.88, Estim Creat Clear Calc 108.25, Est GFR (MDRD) Non- Af 96, BUN/Creatinine Ratio 13.9, Glucose 171 H, Calcium 9.5, Troponin T High Sens 189 H* 04/30/25 13:48: Activated Clotting Time 360 H 04/30/25 17:40: Troponin T Hi Sens 2 Hr 1277 H* 04/30/25 19:50: Troponin T Hi Sens 4Hr 1482 H* 05/01/25 04:13: WBC 14.6 H, RBC 4.47 L, Hgb 13.0, Hct 38.5 L, MCV 86.1, MCH 29.1, MCHC 33.8, RDW Std Deviation 44.4 H, RDW Coeff of Sonia 14.1, Plt Count 224,MPV 9.7, Sodium 141, Potassium 3.6, Chloride 109 H, Carbon Dioxide 21.4, Anion Gap 10, BUN 11, Creatinine 0.87, Estim Creat Clear Calc 108.73, Est GFR (MDRD) Non-Af 96, BUN/Creatinine Ratio 12.8, Glucose 116 H, Hemoglobin A1c 6.2 H, Calcium 8.4, Total Bilirubin 0.76, AST 73 H, ALT 24, Alkaline Phosphatase 64, Total Protein 6.3, Albumin 3.9, Globulin 2.4, Albumin/Globulin Ratio 1.6, Triglycerides 98, Cholesterol 143, LDL Cholesterol, Calc 73, VLDL Cholesterol 20, HDL Cholesterol 51, Cholesterol/HDL Ratio 2.81, TSH 2.510 Cardiology Labs/Tests 04/30/25 13:10: WBC 12.4 H, RBC 5.39, Hgb 15.7, Hct 46.0, MCV 85.3, MCH 29.1, MCHC 34.1, Plt Count 242, MPV 9.5, Immature Gran % (Auto) 0.500, Neut % (Auto) 64.3, Lymph % (Auto) 26.6, Milam % (Auto) 7.4, Eos % (Auto) 0.6, Baso % (Auto) 0.6, Absolute Neuts (auto) 8.0 H, Nucleated RBC % 0, PT 15.1 H, INR 1.2, APTT 30.2, Sodium 140, Potassium 3.6, Chloride 104, Carbon Dioxide 22.3, Anion Gap 14, BUN 12, Creatinine 0.88, Est GFR (MDRD) Non-Af 96, BUN/Creatinine Ratio 13.9, Glucose 171 H, Calcium 9.5 05/01/25 04:13: WBC 14.6 H, RBC 4.47 L, Hgb 13.0, Hct 38.5 L, MCV 86.1, MCH 29.1, MCHC 33.8, Plt Count 224, MPV 9.7, Sodium 141, Potassium 3.6, Chloride 109H, Carbon Dioxide 21.4, Anion Gap 10, BUN 11, Creatinine 0.87, Est GFR (MDRD) Non-Af 96, BUN/Creatinine Ratio 12.8, Glucose 116 H, Hemoglobin A1c 6.2 H, Calcium 8.4, Total Bilirubin 0.76, Triglycerides 98, Cholesterol 143, VLDL Cholesterol 20,HDL Cholesterol 51, Cholesterol/HDL Ratio 2.81 Rhythm: EKG: ECHO: Stress Test: Cardiac Cath: PCI: CT Surgery: Holter monitor: EPS: PPM: CXR: Chest CT Scan: Radiography Diagnostic Testing: Radiology Impression Echocardiogram 04/30/25 13:46 Interpretation Summary The estimated ejection fraction is 65???70 %. Limited transthoracic echocardiogram with inferior hypokinesia. No prior echocardiogram to compare. Ordering Physician: Samir Hanna Referring Physician: Michael Elliott Performed By: Ofelia Page RCS Physical Exam Cardio Cardio Narrative: clinical research monitor reveals normal sinus Cardiac exam S1-S2 is regular No systolic or diastolic murmur Chest exam is clear to auscultation bilateral Examination lower extremity pedal pulses within normal No lower extremity edema. Assessment & Plan Assessment/Plan (1) ACS (acute coronary syndrome): (2) Stented coronary artery: (3) Atherosclerotic heart disease of [place] coronary artery without angina pectoris: PLAN: Cardiac care plan and recommendations; 64-year-old patient with symptoms of chest pain Has dynamic change in the EKG with evidence of recent inferior [place] And occluded proximal large RCA Underwent successful PCI using drug-eluting stent We used 4.5 x 30 mm resolute [place] drug-eluting stent and achieve an excellent result Post PCI patient remains stable clinically. Has an echocardiogram which showed LV function preserved ejection fraction of 65to 70% hyperdynamicleft ventricle With inferior hypokinesia No significant valve abnormality Angiographic study revealed left main is normal angiographically bifurcating in the LAD and left circumflex Has a mid lesion in the LAD at the site of ostial lesion of the D1. This is a moderate size vessel does not reach all the way to the apex The RCA was large dominant. Bifurcating into posterolateral and RPDA. Conclusion recommendation patient is stable clinically he will be transferred tothe progressive care unit. With the plan of continue on dual antiplatelet therapy with Brilinta 90 mg twicedaily in addition to low-dose aspirin. On guideline directed medical therapy with a high-dose statin. Patient will be scheduled for cardiac rehab program, at [facility] If he remains stable he can be discharged home from progressive care unit and tofollow-up with the cardiology group here at [facility] I did discuss the findings of the cardiac catheterization in detail with the the patient and the family at bedside Michael Elliott MD,[facility] rug washer 05/01/25 1304 Cosigner Signature (if applicable): CC: ~ Signed [facility]08-26-2025 Progress note Author Deepti Melchor [facility] Note Date/Time May 01, 2025 8: 53am [facility] Medical Records Department [address] [place] [address] Progress Note - Hospitalist 05/01/25 0714 MR#: [id number] Acct: [id number] Name: ALBERT ANDRADE Andrae Rep #:[id number] : 1960 64 From: Deepti Melchor DO PCP: Care Physician,No Primary Status :ADM IN Location: ICU CVICU20 1-1 Reason for Visit Chief Complaint: Indigestion Subjective Subjective Patient was admitted yesterday after presenting to the emergency department withheartburn and indigestion with concomitant shortness of breath that radiated to his back. STEMI alert was initially called however cardiology did not think it was a true STEMI but he was taken to the [facility] due to her ongoing symptoms. Initial troponin was noted to be 189. XIAO to proximal RCA x 1 was performed. This morning the patient reports that he is feeling overall quite well. Denies any complaints at this time. No chest pain through the night. No arrhythmia. We did discuss that as long as he remains stable over the next 24 hours probabledischarge home tomorrow morning. We discussed the importance of ongoing dual antiplatelet therapy until cardiology tells him to discontinue, statin therapy, and we have added medication for blood pressure/goal-directed therapy. Objective Data Objective Data Vital Signs: Vital Signs Temp Pulse Resp BP Pulse Ox O2 Del Method 98.7 F 70 20 H 140/77 H 96 Room Air 05/01/25 04:00 05/01/25 06:00 05/01/25 06:00 05/01/25 06:00 05/01/25 06:00 05/01/25 06:00 Oxygen Delivery Method Room Air Weight: 117.9 kg Body Mass Index (BMI) 38.5 Intake & Output: Intake and Output for Last 24 Hours 04/29/25 04/30/25 05/01/25 23:59 23:59 23:59 Intake Total 167.5 / 167.5 978.53 / 978.53 Output Total 0 / 0 Balance 167.5 / 167.5 978.53 / 978.53 Lab / Micro Data 05/01/25 04:13 05/01/25 04:13 Labs: Laboratory Results - last 24 hr 04/30/25 13:04: Activated Clotting Time 205 H 04/30/25 13:10: WBC 12.4 H, RBC 5.39, Hgb 15.7, Hct 46.0, MCV 85.3, MCH 29.1, MCHC 34.1, RDW Std Deviation 42.8, RDW Coeff of Sonia 13.9, Plt Count 242, MPV 9.5, Immature Gran % (Auto) 0.500, Neut % (Auto) 64.3, Lymph % (Auto) 26.6, Milam% (Auto) 7.4, Eos % (Auto) 0.6, Baso % (Auto) 0.6, Absolute Neuts (auto) 8.0 H, Absolute Lymphs (auto) 3.31, Nucleated RBC % 0, PT 15.1 H, INR 1.2, APTT 30.2, Sodium 140, Potassium 3.6, Chloride 104, Carbon Dioxide 22.3, Anion Gap 14, BUN 12, Creatinine 0.88, Estim Creat Clear Calc 108.25, Est GFR (MDRD) Non-Af 96, BUN/Creatinine Ratio 13.9, Glucose 171 H, Calcium 9.5, Troponin T High Sens 189 H* 04/30/25 13:48: Activated Clotting Time 360 H 04/30/25 17:40: Troponin T Hi Sens 2 Hr 1277 H* 04/30/25 19:50: Troponin T Hi Sens 4Hr 1482 H* 05/01/25 04:13: WBC 14.6 H, RBC 4.47 L, Hgb 13.0, Hct 38.5 L, MCV 86.1, MCH 29.1, MCHC 33.8, RDW Std Deviation 44.4 H, RDW Coeff of Sonia 14.1, Plt Count 224,MPV 9.7, Sodium 141, Potassium 3.6, Chloride 109 H, Carbon Dioxide 21.4, Anion Gap 10, BUN 11, Creatinine 0.87, Estim Creat Clear Calc 108.73, Est GFR (MDRD) Non-Af 96, BUN/Creatinine Ratio 12.8, Glucose 116 H, Hemoglobin A1c 6.2 H, Calcium 8.4, Total Bilirubin 0.76, AST 73 H, ALT 24, Alkaline Phosphatase 64, Total Protein 6.3, Albumin 3.9, Globulin 2.4, Albumin/Globulin Ratio 1.6, Triglycerides 98, Cholesterol 143, LDL Cholesterol, Calc 73, VLDL Cholesterol 20, HDL Cholesterol 51, Cholesterol/HDL Ratio 2.81, TSH 2.510 Radiography Diagnostic Testing: Radiology Impression Echocardiogram 04/30/25 13:46 Interpretation Summary The estimated ejection fraction is 65???70 %. Limited transthoracic echocardiogram with inferior hypokinesia. No prior echocardiogram to compare. Ordering Physician: Samir Hanna Referring Physician: Michael Elliott Performed By: Ofelia Page RCS Physical Exam Const alert, oriented x3 and well nourished; Negative for average body habitus Constitutional Narrative: Obese, upper middle-aged, white male, sitting up in a chair at the bedside, eating breakfast and watching television, appears comfortable, nontoxic, cooperative HEENT head/scalp atraumatic and moist oral mucous membranes HEENT Narrative: Mallampati 3 Head and Scalp: normocephalic Resp normal respiratory effort, no retractions, no use of accessory muscles and clearto auscultation bilaterally Auscultation: Negative for rales, rhonchi or wheezes Cardio regular rate, regular rhythm, S1 normal heart sound, S2 normal heart sound, no murmurs, no rub, no gallops and no clicks GI normal to inspection, nondistended, normoactive bowel sounds, soft to palpation and non-tender Extremity no clubbing, cyanosis or edema Extremity Narrative: 2+ pedal and radial pulses, post cath site is clean dry and intact Neuro oriented x3, moves all extremities and no focal motor deficits Speech: speech normal Psych affect normal Psych Narrative: Extremely pleasant, grateful for care, interacts appropriately Assessment & Plan Assessment/Plan (1) Atherosclerotic heart disease of [place] coronary artery without angina pectoris: (2) ACS (acute coronary syndrome): (3) Stented coronary artery: PLAN: Plan ACS/NSTEMI type I - EKG changes with the elevated troponin - Emergent cath done on 04/30/2025 with a XIAO to proximal RCA - Patient also noted to have disease in the LAD and elective PCI to the LAD/mid LAD has been recommended to be performed as an outpatient after follow-up - Continue dual antiplatelet therapy for 12 months--> importance of dosing discussed with patient this morning - Continue statin - Continue ASNON inhibitor - Add Coreg 3.125 mg twice daily - Echocardiogram performed and shows an EF of 65 to 70% - No signs of reperfusion arrhythmia and anticipate discharge home in next 24 hours - Cardiology is following-appreciate input - Will make PCU status Essential hypertension - Patient's blood pressure has consistently been elevated to the stage I to stage II hypertensive ranges - Continue lisinopril 10 mg daily - Add carvedilol 3.125 mg twice daily - Overall goal blood pressure should be less than 130/80 Leukocytosis - Suspect reactive related to acute event - Repeat CBC in a.m. Insulin resistance - A1c is 6.2 - Recommend weight loss - No need for current therapy Hyperlipidemia - mild with an LDL of 73 - Continue high intensity of statin for plate atrophic effects as well as lipid control Obesity - BMI 38.4 - Recommend weight loss - Complicates treatment, prognosis, outcomes - Patient may benefit from outpatient polysomnography DVT prophylaxis - continue enoxaparin CODE STATUS Full code was verified with patient this morning and order was placed Charges/Coding Visit Charges Inpatient E&M: 14804 Subs Hosp L2 05/01/25 0853 <Electronically signed by Deepti Melchor DO> Cosigner Signature (if applicable): CC: ~ Signed [facility] Work Phone: 1(335) 468-663608-26-2025 Progress note [facility] Medical Records Department [address] [place] [address] Progress Note - Hospitalist 05/01/25 0714 MR#: [id number] Acct: [id number] Name: ALBERT ANDRADE Rep #:[id number] : 1960 64 From: Deepti Melchor DO PCP: Care Physician,No Primary Status :ADM IN Location: ICU CVICU20 1-1 Reason for Visit Chief Complaint: Indigestion Subjective Subjective Patient was admitted yesterday after presenting to the emergency department withheartburn and indigestion with concomitant shortness of breath that radiated to his back. STEMI alert was initially called however cardiology did not think it was a true STEMI but he was taken to the [facility] due to herongoing symptoms. Initial troponin was noted to be 189. IXAO to proximal RCA x 1 was performed. Thismorning the patient reports that he is feeling overall quite well. Denies any complaints at this time. No chest pain through the night. No arrhythmia. We did discuss that as long as he remains stableover the next 24 hours probabledischarge home tomorrow morning. We discussed the importance of ongoing dual antiplatelet therapy until cardiology tells him to discontinue, statin therapy, and we haveadded medication for blood pressure/goal-directed therapy. Objective Data Objective Data Vital Signs: Vital Signs Temp Pulse Resp BP Pulse Ox O2 Del Method 98.7 F 70 20 H 140/77 H 96 Room Air 05/01/25 04:00 05/01/25 06:00 05/01/25 06:00 05/01/25 06:00 05/01/25 06:00 05/01/25 06:00 Oxygen Delivery Method Room Air Weight: 117.9 kg Body Mass Index (BMI) 38.5 Intake & Output: Intake and Output for Last 24 Hours 04/29/25 04/30/25 05/01/25 23:59 23:59 23:59 Intake Total 167.5 / 167.5 978.53 / 978.53 Output Total 0 / 0 Balance 167.5 / 167.5 978.53 / 978.53 Lab / Micro Data 05/01/25 04:13 05/01/25 04:13 Labs: Laboratory Results - last 24 hr 04/30/25 13:04: Activated Clotting Time 205 H 04/30/25 13:10: WBC 12.4 H, RBC 5.39, Hgb 15.7, Hct 46.0, MCV 85.3, MCH 29.1, MCHC 34.1, RDW Std Deviation 42.8, RDW Coeff of Sonia 13.9, Plt Count 242, MPV 9.5, Immature Gran % (Auto) 0.500, Neut % (Auto) 64.3, Lymph % (Auto) 26.6, Milam% (Auto) 7.4, Eos % (Auto) 0.6, Baso % (Auto) 0.6, Absolute Neuts (auto) 8.0 H, Absolute Lymphs (auto) 3.31, Nucleated RBC % 0, PT 15.1 H, INR 1.2, APTT 30.2, Sodium 140, Potassium 3.6, Chloride 104, Carbon Dioxide 22.3, Anion Gap 14, BUN 12, Creatinine 0.88, Estim Creat Clear Calc 108.25, Est GFR (MDRD) Non- Af 96, BUN/Creatinine Ratio 13.9, Glucose 171 H, Calcium 9.5, Troponin T High Sens 189 H* 04/30/25 13:48: Activated Clotting Time 360 H 04/30/25 17:40: Troponin T Hi Sens 2 Hr 1277 H* 04/30/25 19:50: Troponin T Hi Sens 4Hr 1482 H* 05/01/25 04:13: WBC 14.6 H, RBC 4.47 L, Hgb 13.0, Hct 38.5 L, MCV 86.1, MCH 29.1, MCHC 33.8, RDW Std Deviation 44.4 H, RDW Coeff of Sonia 14.1, Plt Count 224,MPV 9.7, Sodium 141, Potassium 3.6, Chloride 109 H, Carbon Dioxide 21.4, Anion Gap 10, BUN 11, Creatinine 0.87, Estim Creat Clear Calc 108.73, Est GFR (MDRD) Non-Af 96, BUN/Creatinine Ratio 12.8, Glucose 116 H, Hemoglobin A1c 6.2 H, Calcium 8.4, Total Bilirubin 0.76, AST 73 H, ALT 24, Alkaline Phosphatase 64, Total Protein 6.3, Albumin 3.9, Globulin 2.4, Albumin/Globulin Ratio 1.6, Triglycerides 98, Cholesterol 143, LDL Cholesterol, Calc 73, VLDL Cholesterol 20, HDL Cholesterol 51, Cholesterol/HDL Ratio 2.81, TSH 2.510 Radiography Diagnostic Testing: Radiology Impression Echocardiogram 04/30/25 13:46 Interpretation Summary The estimated ejection fraction is 65???70 %. Limited transthoracic echocardiogram with inferior hypokinesia. No prior echocardiogram to compare. Ordering Physician: Samir Hanna Referring Physician: Michael Elliott Performed By: Ofelia Page RCS Physical Exam Const alert, oriented x3 and well nourished; Negative for average body habitus Constitutional Narrative: Obese, upper middle-aged, white male, sitting up in a chair at the bedside, eating breakfast and watching television, appears comfortable, nontoxic, cooperative HEENT head/scalp atraumatic and moist oral mucous membranes HEENT Narrative: Mallampati 3 Head and Scalp: normocephalic Resp normal respiratory effort, no retractions, no use of accessory muscles and clearto auscultation bilaterally Auscultation: Negative for rales, rhonchi or wheezes Cardio regular rate, regular rhythm, S1 normal heart sound, S2 normal heart sound, no murmurs, no rub, no gallops and no clicks GI normal to inspection, nondistended, normoactive bowel sounds, soft to palpation and non-tender Extremity no clubbing, cyanosis or edema Extremity Narrative: 2+ pedal and radial pulses, post cath site is clean dry and intact Neuro oriented x3, moves all extremities and no focal motor deficits Speech: speech normal Psych affect normal Psych Narrative: Extremely pleasant, grateful for care, interacts appropriately Assessment & Plan Assessment/Plan (1) Atherosclerotic heart disease of [place] coronary artery without angina pectoris: (2) ACS (acute coronary syndrome): (3) Stented coronary artery: PLAN: Plan ACS/NSTEMI type I - EKG changes with the elevated troponin - Emergent cath done on 04/30/2025 with a XIAO to proximal RCA - Patient also noted to have disease in the LAD and elective PCI to the LAD/mid LAD has been recommended to be performed as an outpatient after follow-up - Continue dual antiplatelet therapy for 12 months--> importance of dosing discussed with patient this morning - Continue statin - Continue ANSON inhibitor - Add Coreg 3.125 mg twice daily - Echocardiogram performed and shows an EF of 65 to 70% - No signs of reperfusion arrhythmia and anticipate discharge home in next 24 hours - Cardiology is following-appreciate input - Will make PCU status Essential hypertension - Patient's blood pressure has consistently been elevated to the stage I to stage II hypertensive ranges - Continue lisinopril 10 mg daily - Add carvedilol 3.125 mg twice daily - Overall goal blood pressure should be less than 130/80 Leukocytosis - Suspect reactive related to acute event - Repeat CBC in a.m. Insulin resistance - A1c is 6.2 - Recommend weight loss - No need for current therapy Hyperlipidemia - mild with an LDL of 73 - Continue high intensity of statin for plate atrophic effects as well as lipid control Obesity - BMI 38.4 - Recommend weight loss - Complicates treatment, prognosis, outcomes - Patient may benefit from outpatient polysomnography DVT prophylaxis - continue enoxaparin CODE STATUS Full code was verified with patient this morning and order was placed Charges/Coding Visit Charges Inpatient E&M: 31051 Subs Hosp L2 05/01/25 0853 Cosigner Signature (if applicable): CC: ~ Signed [facility]08-26-2025 Study report [facility] Cardiac Rehab [address] [place] [address] CR: Phase I Education Summary MR#: [id number] Acct: [id number] Name: ALBERT ANDRADE Rep #:[id number] : 1960 64 From: Aldair Delgadillo PCP: Care Physician,No Primary DOS: 04/30/25 General Education Discussed with Patient CAD and cardiac anatomy and function:: Patient communicates acknowledgment and Needs reinforcement Explanation of diagnoses and procedures:: Patient communicates acknowledgment and Needs reinforcement Sign/Symptoms of [place]:: Patient communicates acknowledgment and Needs reinforcement Antiplatelet therapy: Patient communicates acknowledgment and Needs reinforcement Proper use of NTG-SL: Patient communicates acknowledgment and Needs reinforcement Emergency procedures and activation of EMS: Patient communicates acknowledgment and Needs reinforcement Compliance of all prescribed medications: Patient communicates acknowledgment and Needs reinforcement Dyslipidemia Risk Factors Patient Dyslipidemia Risk Factors Are:: Total Cholesterol, Triglycerides, HDL and LDL Recommendations Recommendations Include:: Lipid profile not available Response Code Dyslipidemia Response Code:: Patient communicates acknowledgment and Needs reinforcement Overweight/Obesity Risk Factors Patient Overweight/Obesity Risk Factors Are:: Obesity - > or = 30 Recommendations Recommendations Include:: Weight loss of 5-10%, Reduced calorie diet and Exercise 5-7 times/week Response Code Overweight/Obesity:: Patient communicates acknowledgment and Needs reinforcement Hypertension Recommendations Recommendations Include:: Maintain BP <130/85 and Decrease/maintain normal body weight Response Code Hypertension:: Patient communicates acknowledgment and Needs reinforcement Metabolic Syndrome Risk Factors Patient Metabolic Syndrome Risk Factors Are [3 of 5]:: Fasting blood sugar > 100mg/dL and Waist circumference > 35 [female] or 40 [male] Recommendations Recommendations Include:: Reinforce compliance to risk factor modifications and Encouraged follow-up with Primary Care Physician Response Code Metabolic Syndrome Response Code:: Patient communicates acknowledgment and Needs reinforcement Sedentary Risk Factors Patient Sedentary Risk Factors Are:: Lack of regular exercise Recommendations Recommendations Include:: Aerobic exercise 5-7 times/week for 20-30 minutes continuously, Benefits of regular exercise, Discussed home walking program and Monitored Outpatient Cardiac Rehab Response Code Sedentary Response Code:: Patient communicates acknowledgment and Needs reinforcement Stress Risk Factors Patient Stress Risk Factors Are:: Patient denies stress as a risk factor Recommendations Recommendations Include:: Identification of stressors, and assessment of coping skills and Stress management techniques Response Code Stress Response Code:: Patient communicates acknowledgment and Needs reinforcement 05/01/25 0752 Date Aldair W Elie Outcome assessment reviewed. Exercise plan approved as documented. Treatment plan and goals support patient needs/abilities. Continue with current plan. I certify the patient demonstrates improvement and remains willing and capable of participation. the patient continues to benefit from cardiac rehab services/training. The patient may continue at current intensity, endurance and modality and progress per protocol. Cosigner Signature: Date CC: ~ Signed [facility]08-26-2025 History and physical note Author Anaid Zavala [facility] Note Date/Time April 30, 2025 10 :05pm [facility] Medical Records Department [address] [place] [address] H&P Exam - Hospitalist 04/30/25 1621 MR#: [id number] Acct: [id number] Name: ALBERT ANDRADE Rep #:[id number] : 1960 64 From: Anaid Zavala MD PCP: Care Physician,No Primary Status :ADM IN Location: ICU CVICU20 1-1 HPI - General General Date of Admission: 04/30/25 Date of Service: 04/30/25 Chief Complaint: Indigestion HPI Narrative ALBERT ANDRADE, is a 64-year-old male with no known past medical history presented [facility] ED 04/30/2025 due to heartburn/indigestion and shortness of breath as well as pain rating to his back. He initially had this 2to 3 weeks ago while he was moving logs and noted the heartburn and indigestion and substernal area with difficulty breathing but symptoms resolved after he stopped. Last night was having difficulty breathing and difficulty sleeping andcomplained of the retrosternal indigestion radiating to his back ultimately prompting patient to come to the ED. Initially patient was STEMI alert however cardiology evaluated did not think that this was an acute STEMI though patient did have EKG changes. Patient also in bigeminy and was taken to the [facility] given all of the above and his continued symptoms. On presentation temp 97, heart rate 88 and blood pressure initially 214/107, respiratory rate 16 pulse ox100% on room air. CBC with a white blood cell count of 12 and BMP only notable for glucose of 171, initial troponin 189. Patient taken straight to the Ship'S Engineer. Patient evaluated post Ship'S Engineer at bedside. Patient reports history as above, said he also noticed occasional dry cough/clearing throat over the past couple of weeks but does not feel the need to do that now, presently not having of the indigestion or chest pain, just feels somewhat uncomfortable overall due to laying in the bed, has not been able to get up yet, not presently feeling shortness of breath [facility] Medical History (Updated 04/30/25 @ 17:09 by Mile Thompson) Atherosclerotic heart disease of [place] coronary artery without angina pectoris Ureteral stent present Medical History no medical history Home Medications ?Medication ?Instructions ?Recorded ?Last Taken ?Type NK 04/30/25 Unknown History Allergy/AdvReac Type Severity Reaction Status Date / Time No Known Allergies Allergy Verified 04/30/25 12:51 Family History no significant family his Surgical History (Updated 04/30/25 @ 17:08 by Mile Thompson) History of appendectomy Stented coronary artery (04/30/25) Surgical History no surgical history Social History (Updated 04/30/25 @ 13:[address] David Keene MD) household members: spouse Smoking Status: Never smoker ROS ROS Narrative General: Denies fever/chills HENT: denies stuffy nose, denies sore throat EYES: Denies changes in vision Resp: Had been having a little bit of a cough/clearing throat, not at this time Cardiac: Denies chest pain GI: Denies abdominal pain, denies changes in bowel, denies nausea/vomiting : Denies changes in urination Extremity: Denies swelling MSK: Denies weakness, does feels a little bit uncomfortable overall right now Neuro: Denies any numbness/tingling, does have some tremors in his hands which are usually there but worse right now than usual Heme: Denies any bleeding or bruising Skin: Denies rashes Psychiatric: No complaints voiced Vital Signs Vital Signs Vital Signs: 04/30/25 12:50 04/30/25 13:21 04/30/25 13:49 Temperature 97 F L Temperature Source Temporal Pulse Rate 88 Respiratory Rate 16 Respiratory Effort Normal Non-Labored Blood Pressure 214/107 H Blood Pressure Mean 142 Pulse Ox 100 Oxygen Delivery Method Room Air Room Air 04/30/25 13:50 Temperature 97 F L Temperature Source Pulse Rate 104 H Respiratory Rate 15 Respiratory Effort Blood Pressure 155/133 H Blood Pressure Mean 140 Pulse Ox 97 Oxygen Delivery Method Weight Weight: 118 kg Body Mass Index (BMI) 38.4 Physical Exam Narrative General: Alert, oriented HEENT: Atraumatic, normocephalic Eyes: Anicteric, normal conjunctiva, extraocular movements grossly intact Neck: Supple Respiratory: Clear to auscultation bilaterally, normal respiratory effort Cardiovascular: Regular rate and rhythm GI: Soft, nontender, nondistended Extremities: No edema Musculoskeletal: Moving all extremities Neuro: No overt focal neurological deficits, does have some tremor and some outstretched hands Skin: No rashes appreciated Psych: Cooperative Results Lab / Micro Data 04/30/25 13:10 04/30/25 13:10 Labs: Laboratory Results - last 24 hr 04/30/25 13:04: Activated Clotting Time 205 H 04/30/25 13:10: WBC 12.4 H, RBC 5.39, Hgb 15.7, Hct 46.0, MCV 85.3, MCH 29.1, MCHC 34.1, RDW Std Deviation 42.8, RDW Coeff of Sonia 13.9, Plt Count 242, MPV 9.5, Immature Gran % (Auto) 0.500, Neut % (Auto) 64.3, Lymph % (Auto) 26.6, Milam% (Auto) 7.4, Eos % (Auto) 0.6, Baso % (Auto) 0.6, Absolute Neuts (auto) 8.0 H, Absolute Lymphs (auto) 3.31, Nucleated RBC % 0, PT 15.1 H, INR 1.2, APTT 30.2, Sodium 140, Potassium 3.6, Chloride 104, Carbon Dioxide 22.3, Anion Gap 14, BUN 12, Creatinine 0.88, Estim Creat Clear Calc 108.25, Est GFR (MDRD) Non-Af 96, BUN/Creatinine Ratio 13.9, Glucose 171 H, Calcium 9.5, Troponin T High Sens 189 H* 04/30/25 13:48: Activated Clotting Time 360 H Assessment & Plan Assessment/Plan (1) ACS (acute coronary syndrome): (2) Stented coronary artery: PLAN: Plan # NSTEMI type I - EKG with changes initial troponin of 189 that is up trended to 1482 - Taken emergently to [facility] and received stent to RCA -Patient now pain-free - Aspirin, statin, Brilinta - Cardiology following - Echo limited at bedside in the [facility] with EF 65-70 and inferior hypokinesis, formal echo ordered - Will start ANSON - Lipid panel and A1c in the a.m. #DVT ppx: SCDs Anaid Zavala MD Charges/Coding Visit Charges Inpatient E&M: 37743 Init Hosp L1 04/30/252204 <Electronically signed by Anaid Zvaala MD> Cosigner Signature (if applicable): CC: Dr. Anaid Zavala MD; No Primary Care Physician~ Signed [facility] Work Phone: 1(984) 695-760208-25-2025 History and physical note [facility] Medical Records Department [address] [place] [address] H&P Exam - Hospitalist 04/30/25 1621 MR#: [id number] Acct: [id number] Name: ALBERT ANDRADE Rep #:[id number] : 1960 64 From: Anaid Zavala MD PCP: Care Physician,No Primary Status :ADM IN Location: ICU CVICU20 1-1 HPI - General General Date of Admission: 04/30/25 Date of Service: 04/30/25 Chief Complaint: Indigestion HPI Narrative ALBERT ANDRADE, is a 64-year-old male with no known past medical history presented [facility] ED 04/30/2025 due to heartburn/indigestion and shortness of breath as well as pain rating to his back. He initially had this 2to 3 weeks ago while he was moving logs and noted the heartburn andindigestion and substernal area with difficulty breathing but symptoms resolved after he stopped. Last night was having difficulty breathing and difficulty sleeping andcomplained of the retrosternal indigestion radiating to his back ultimately prompting patient to come to the ED. Initially patient was STEMI alert however cardiology evaluated did not think that this was an acute STEMI though patient did have EKG changes. Patient also in bigeminy and was taken to the Ship[facility]S [facility] given all of the above and his continued symptoms. On presentation temp 97, heart rate 88 and blood pressure initially 214/107, respiratory rate 16 pulse ox100% on room air. CBC with a white blood cell count of 12 and BMP only notable for glucose of 171, initial troponin 189. Patient taken straight to the Ship'S Engineer. Patient evaluated post Ship'S Engineer at bedside. Patient reports history as above, said he also noticed occasional dry cough/clearing throat over the past couple of weeks but does not feel the need to do thatnow, presently not having of the indigestion or chest pain, just feels somewhat uncomfortable overall due to laying in the bed, has not been able to get up yet, not presently feeling shortness of breath PFSH Medical History (Updated 04/30/25 @ 17:09 by Mile Thompson) Atherosclerotic heart disease of [place] coronary artery without angina pectoris Ureteral stent present Medical History no medical history Home Medications ?Medication ?Instructions ?Recorded ?Last Taken ?Type NK 04/30/25 Unknown History Allergy/AdvReac Type Severity Reaction Status Date / Time No Known Allergies Allergy Verified 04/30/25 12:51 Family History no significant family his Surgical History (Updated 04/30/25 @ 17:08 by Mile Thompson) History of appendectomy Stented coronary artery (04/30/25) Surgical History no surgical history Social History (Updated 04/30/25 @ 13:[address] David Keene MD) household members: spouse Smoking Status: Never smoker ROS ROS Narrative General: Denies fever/chills HENT: denies stuffy nose, denies sore throat EYES: Denies changes in vision Resp: Had been having a little bit of a cough/clearing throat, not at this time Cardiac: Denies chest pain GI: Denies abdominal pain, denies changes in bowel, denies nausea/vomiting : Denies changes in urination Extremity: Denies swelling MSK: Denies weakness, does feels a little bit uncomfortable overall right now Neuro: Denies any numbness/tingling, does have some tremors in his hands which are usually there but worse right now than usual Heme: Denies any bleeding or bruising Skin: Denies rashes Psychiatric: No complaints voiced Vital Signs Vital Signs Vital Signs: 04/30/25 12:50 04/30/25 13:21 04/30/25 13:49 Temperature 97 F L Temperature Source Temporal Pulse Rate 88 Respiratory Rate 16 Respiratory Effort Normal Non-Labored Blood Pressure 214/107 H Blood Pressure Mean 142 Pulse Ox 100 Oxygen Delivery Method Room Air Room Air 04/30/25 13:50 Temperature 97 F L Temperature Source Pulse Rate 104 H Respiratory Rate 15 Respiratory Effort Blood Pressure 155/133 H Blood Pressure Mean 140 Pulse Ox 97 Oxygen Delivery Method Weight Weight: 118 kg Body Mass Index (BMI) 38.4 Physical Exam Narrative General: Alert, oriented HEENT: Atraumatic, normocephalic Eyes: Anicteric, normal conjunctiva, extraocular movements grossly intact Neck: Supple Respiratory: Clear to auscultation bilaterally, normal respiratory effort Cardiovascular: Regular rate and rhythm GI: Soft, nontender, nondistended Extremities: No edema Musculoskeletal: Moving all extremities Neuro: No overt focal neurological deficits, does have some tremor and some outstretched hands Skin: No rashes appreciated Psych: Cooperative Results Lab / Micro Data 04/30/25 13:10 04/30/25 13:10 Labs: Laboratory Results - last 24 hr 04/30/25 13:04: Activated Clotting Time 205 H 04/30/25 13:10: WBC 12.4 H, RBC 5.39, Hgb 15.7, Hct 46.0, MCV 85.3, MCH 29.1, MCHC 34.1, RDW Std Deviation 42.8, RDW Coeff of Sonia 13.9, Plt Count 242, MPV 9.5, Immature Gran % (Auto) 0.500, Neut % (Auto) 64.3, Lymph % (Auto) 26.6, Milam% (Auto) 7.4, Eos % (Auto) 0.6, Baso % (Auto) 0.6, Absolute Neuts (auto) 8.0 H, Absolute Lymphs (auto) 3.31, Nucleated RBC % 0, PT 15.1 H, INR 1.2, APTT 30.2, Sodium 140, Potassium 3.6, Chloride 104, Carbon Dioxide 22.3, Anion Gap 14, BUN 12, Creatinine 0.88, Estim Creat Clear Calc 108.25, Est GFR (MDRD) Non- Af 96, BUN/Creatinine Ratio 13.9, Glucose 171 H, Calcium 9.5, Troponin T High Sens 189 H* 04/30/25 13:48: Activated Clotting Time 360 H Assessment & Plan Assessment/Plan (1) ACS (acute coronary syndrome): (2) Stented coronary artery: PLAN: Plan # NSTEMI type I - EKG with changes initial troponin of 189 that is up trended to 1482 - Taken emergently to [facility] and received stent to RCA -Patient now pain-free - Aspirin, statin, Brilinta - Cardiology following - Echo limited at bedside in the [facility] with EF 65-70 and inferior hypokinesis, formal echo ordered - Will start ANSON - Lipid panel and A1c in the a.m. #DVT ppx: SCDs Anaid Zavala MD Charges/Coding Visit Charges Inpatient E&M: 24834 Init Hosp L1 04/30/252204 Cosigner Signature (if applicable): CC: Dr. Anaid Zavala MD; No Primary Care Physician~ Signed [facility]08-25-2025 Evaluation note* Diagnosis Onset Date Resolution Status Admit Date ACS (acute coronary syndrome) acute April 30, 2025 4:21pm Hypertensive urgency acute Augu 2024 4:21pm Atherosclerotic heart diseas e of [place] coronary artery without angina pectoris chronic April 072024 4:21pm Stented coronary artery April 30, 2025 chron ic April 30, 2025 4:21pm [facility] Work Phone: [phone]) 222-255908-25-2025 Evaluation note* Diagnosis Onset Date Resolution Status Admit Date ACS (acute coronary syndrome) acute April 30 4:21pm Hypertensive urgency acute Augu 2024 4:21pm Atherosclerotic heart disease of [place] coronary artery without angina pectoris chronic April 30 4:21pm Stented coronary artery April 30, 2025 chron ic April 30, 2025 4:21pm Stented coronary artery April 30, 2025 chron ic May 09, 2025 9:59am [place] [employer] Work Phone: [phone]) 539-870908-25-2025 Evaluation note* Diagnosis Onset Date Resolution Status Admit Date Atherosclerotic heart disease of [place] coronary artery without angina pectoris acute April 30 4:21pm ACS (acute coronary syndrome) resolved April 30 4:21pm Hypertensive urgency resolved Augu 2024 4:21pm Stented coronary artery April 30, 2025 inact jessy April 30, 2025 4:21pm Stented coronary artery April 30, 2025 inact jessy May 09, 2025 9:59am [facility] Work Phone: [phone]) 457-242808-25-2025 Discharge summary Author David Keene [facility] Note Date/Time April 30, 2025 1: 34pm [facility] Medical Records Department [address] [place] [id number] Emergency Department Summary 04/30/25 MR#: [id number] Acct: [id number] Name: ALBERT ANDRADE Rep #:[id number] : 1960 64 From: David Keene MD PCP: Care Physician,No Primary Status :REG ER Location: ED HPI History of Present Illness Chief Complaint: Chest Pain Detail of Chief Complaint: Heartburn/indigestion and shortness of breath Informant: patient Onset/Context/Timing Onset: - (2 to 3 weeks ago with exertion and last evening at rest) Activity at onset: sudden Timing: Continuous Quality: Positive for Burning and Indigestion Location: Substernal Current Severity: Mild Maximum Severity: Moderate Worsened By: Exertion (Worse walking up the incline) Relieved By: Nothing Associated Symptoms: Positive for Dyspnea and Lightheadedness; Negative for Nausea, Vomiting, Diaphoresis, Cough, Fever, Acid Reflux or Palpitations Narrative Narrative: Patient is a 64-year-old male with no past medical history on no medication who presents because of indigestion shortness of breath and pain that radiate through to his back. 2 to 3 weeks ago while moving logs he had heartburn indigestion substernal with difficulty breathing. Symptoms resolved after he stopped. Last evening he had basal crackers. He believes this is the cause of his indigestion. Apparently he is having difficulty with breathing and had difficulty sleeping last evening. He still complain of retrosternal indigestionradiating through to his back. Does not radiate anywhere else. He denies history of hiatal hernia, reflux or peptic ulcer disease. [place] black or maroon-colored stool. He has no history of VTE or any risk factors. He denies headache, visual, ocular auditory symptoms. Recent Illness/Hospitalization: No CVD Risk Factors: Negative for Hypertension, Diabetes, Hypercholesterolemia, Family History 1' </=55 or Smoking PE Risk Factors: Negative for Recent Travel/Surgery, Recent Immobilization, Prior DVT or PE, Cancer or OCP + Smoking + >/=35 TAD Risk Factors: Negative for Marfan's Syndrome, Hypertension or Family History PFSH PFSH Medical History no medical history no medical history Home Medications ?Medication ?Instructions ?Recorded ?Last Taken ?Type NK 04/30/25 Unknown History Allergy/AdvReac Type Severity Reaction Status Date / Time No Known Allergies Allergy Verified 04/30/25 12:51 Family History no significant family his Surgical History no surgical history Social History (Updated 04/30/25 @ 13:[address] David Keene MD) household members: spouse Smoking Status: Never smoker ROS ROS ED Constitutional Constitutional ED: Denies chills, fever(s), subjective or sweats Eyes Eyes: Reports none Cardiovascular Cardiovascular: Reports as per HPI and chest pain; Denies orthopnea or paroxysmal nocturnal dyspnea Respiratory/Chest Respiratory/Chest: Reports dyspnea on exertion; Denies cough, dyspnea, orthopneaor paroxysmal nocturnal dyspnea Gastrointestinal Gastrointestinal: Denies abdominal pain, melena, nausea or vomiting Musculoskeletal Musculoskeletal: Reports back pain; Denies arthralgias or myalgias Integumentary Denies rash Neurologic Neurologic: Denies headache(s) Hematologic/Lymphatic Hematologic/Lymphatic: Denies easy bleeding or easy bruising Allergic/Immunologic Allergic/Immunologic ED: Denies mouth swelling or tongue swelling EXAM Physical Exam Const Vital Signs: 04/30/25 12:50 04/30/25 13:21 Temperature 97 F L Temperature Source Temporal Pulse Rate 88 Respiratory Rate 16 Blood Pressure 214/107 H Blood Pressure Mean 142 Pulse Ox 100 Oxygen Delivery Method Room Air Room Air Positive well nourished and well developed Constitutional Narrative: Blood pressure is elevated 214/107. BMI is elevated at 36.7. General Appearance ED: well developed HEENT Reports moist mucous membranes normocephalic and atraumatic Eyes PERRL and EOMs intact bilaterally General Eye ED: Negative for pale conjunctiva or scleral icterus Neck no lymphadenopathy, supple and no JVD Chest Wall inspection of chest normal and palpation of chest normal Resp normal respiratory effort and clear to auscultation bilaterally Cardio regular rate, S1 normal heart sound, S2 normal heart sound and no murmurs; Negative for regular rhythm Peripheral Pulses: pulses 2+ throughout GI normal to inspection, nondistended, normoactive bowel sounds, soft to palpation,non-tender and non-distended; Negative for hepatosplenomegaly or no masses Back/Spine no CVA tenderness Extremity normal to inspection General Extremety ED: Negative for edema or pulses abnormal General Extremity: Negative for edema or pulses abnormal Neuro oriented x3 and CN's II-XII intact bilaterally Sensorium / Orientation: awake and alert Psych mental status grossly normal Skin no rashes or lesions noted and no wounds MDM MDM MDM Narrative Medical decision making narrative: Twelve-lead EKG reveals bigeminy. He has ST elevation in lead III and aVF and some mild depression in V2 and V3. This is unchanged from 2012. Concerned thismay represent a STEMI. EKG was sent to Dr. Elliott. Since he is still having symptoms he was taken to [facility]. Concerned he may have had an IL a coupleof weeks ago. He states this is not a STEMI. Patient received aspirin in the emergency department. He was not given Brilinta or heparin. Dr. Russell said he can give him heparin or Brilinta If Needed Pending images. History & Record Review Discussion w/independent historian: Significant other Additional record(s) reviewed:: No prior records EKG Initial EKG: Attestation: I personally reviewed and interpreted this EKG as follows: Interpretation: Sinus Rhythm (ST elevation 3 aVF with depression in V2 andV3. There is a Q wave in aVF. He has a bundle branch parents noted on the premature beats.) Management Discussion w/another healthcare provider: Hospitalist (Dr. 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 () Critical Care Time Critical Care Time: Yes Critical care time (excluding procedures): 30-74 minutes (10), Including time spent: (History, physical, documentation, interpretation EKG, discussion with hospitalist and correctional counselor), Discussing w/Patient &/or Family/Lab Support Tech, Discussing w/Consultants and Arranging Admission or Transfer Discharge Plan Triage Chief Complaint: Chest Pain ED Provider: David Keene Dx/Rx/DC Orders Clinical Impression: ACS (acute coronary syndrome), Hypertensive urgency Prescriptions: No Action NK Primary Care Provider: Care Physician,No Primary Referrals: Care Physician,No Primary [Primary Care Provider] - Print Language: Malawian Disposition Disposition: [facility] What to do if you have Problems For any increased pain, shortness of breath, bleeding, nausea or vomiting, chestpain, or any unexpected problems, contact your Primary Care Provider. Call [facility] ([phone]) or report to the closest Emergency Room. Call 911 if necessary. 04/30/25 1334 <Electronically signed by David Keene MD> Cosigner Signature (if applicable): CC: No Primary Care Physician ~ Signed [facility] Work Phone: [phone] Discharge summary [facility] Medical Records Department [address] [place] [address] Emergency Department Summary 04/30/25 MR#: [id number] Acct: [id number] Name: ALBERT ANDRADE Rep #:[id number] : 1960 64 From: David Keene MD PCP: Care Physician,No Primary Status :REG ER Location: ED HPI History of Present Illness Chief Complaint: Chest Pain Detail of Chief Complaint: Heartburn/indigestion and shortness of breath Informant: patient Onset/Context/Timing Onset: - (2 to 3 weeks ago with exertion and last evening at rest) Activity at onset: sudden Timing: Continuous Quality: Positive for Burning and Indigestion Location: Substernal Current Severity: Mild Maximum Severity: Moderate Worsened By: Exertion (Worse walking up the incline) Relieved By: Nothing Associated Symptoms: Positive for Dyspnea and Lightheadedness; Negative for Nausea, Vomiting, Diaphoresis, Cough, Fever, Acid Reflux or Palpitations Narrative Narrative: Patient is a 64-year-old male with no past medical history on no medication who presents because ofindigestion shortness of breath and pain that radiate through to his back. 2 to 3 weeks ago while moving logs he had heartburn indigestion substernal with difficulty breathing. Symptoms resolved after he stopped. Last evening he had basal crackers. He believes this is the cause of his indigestion. Apparently he is having difficulty with breathing and had difficulty sleeping last evening. He stillcomplain of retrosternal indigestionradiating through to his back. Does not radiate anywhere else. He denies history of hiatal hernia, reflux or peptic ulcer disease. [place] black or maroon-colored stool. He has no history of VTE or any risk factors. He denies headache, visual, ocular auditory symptoms. Recent Illness/Hospitalization: No CVD Risk Factors: Negative for Hypertension, Diabetes, Hypercholesterolemia, Family History 1' PE Risk Factors: Negative for Recent Travel/Surgery, Recent Immobilization, Prior DVT or PE, Cancer or OCP + Smoking + >/=35 TAD Risk Factors: Negative for Marfan's Syndrome, Hypertension or Family History PFSH PFSH Medical History no medical history no medical history Home Medications ?Medication ?Instructions ?Recorded ?Last Taken ?Type NK 04/30/25 Unknown History Allergy/AdvReac Type Severity Reaction Status Date / Time No Known Allergies Allergy Verified 04/30/25 12:51 Family History no significant family his Surgical History no surgical history Social History (Updated 04/30/25 @ 13:[address] David Keene MD) household members: spouse Smoking Status: Never smoker ROS ROS ED Constitutional Constitutional ED: Denies chills, fever(s), subjective or sweats Eyes Eyes: Reports none Cardiovascular Cardiovascular: Reports as per HPI and chest pain; Denies orthopnea or paroxysmal nocturnal dyspnea Respiratory/Chest Respiratory/Chest: Reports dyspnea on exertion; Denies cough, dyspnea, orthopneaor paroxysmal nocturnal dyspnea Gastrointestinal Gastrointestinal: Denies abdominal pain, melena, nausea or vomiting Musculoskeletal Musculoskeletal: Reports back pain; Denies arthralgias or myalgias Integumentary Denies rash Neurologic Neurologic: Denies headache(s) Hematologic/Lymphatic Hematologic/Lymphatic: Denies easy bleeding or easy bruising Allergic/Immunologic Allergic/Immunologic ED: Denies mouth swelling or tongue swelling EXAM Physical Exam Const Vital Signs: 04/30/25 12:50 04/30/25 13:21 Temperature 97 F L Temperature Source Temporal Pulse Rate 88 Respiratory Rate 16 Blood Pressure 214/107 H Blood Pressure Mean 142 Pulse Ox 100 Oxygen Delivery Method Room Air Room Air Positive well nourished and well developed Constitutional Narrative: Blood pressure is elevated 214/107. BMI is elevated at 36.7. General Appearance ED: well developed HEENT Reports moist mucous membranes normocephalic and atraumatic Eyes PERRL and EOMs intact bilaterally General Eye ED: Negative for pale conjunctiva or scleral icterus Neck no lymphadenopathy, supple and no JVD Chest Wall inspection of chest normal and palpation of chest normal Resp normal respiratory effort and clear to auscultation bilaterally Cardio regular rate, S1 normal heart sound, S2 normal heart sound and no murmurs; Negative for regular rhythm Peripheral Pulses: pulses 2+ throughout GI normal to inspection, nondistended, normoactive bowel sounds, soft to palpation,non-tender and non-distended; Negative for hepatosplenomegaly or no masses Back/Spine no CVA tenderness Extremity normal to inspection General Extremety ED: Negative for edema or pulses abnormal General Extremity: Negative for edema or pulses abnormal Neuro oriented x3 and CN's II-XII intact bilaterally Sensorium / Orientation: awake and alert Psych mental status grossly normal Skin no rashes or lesions noted and no wounds MDM MDM MDM Narrative Medical decision making narrative: Twelve-lead EKG reveals bigeminy. He has ST elevation in lead III and aVF and some mild depression in V2 and V3. This is unchanged from 2012. Concerned thismay represent a STEMI. EKG was sent to Dr. Elliott. Since he is still having symptoms he was taken to the [facility]. Concerned he may have had an IL a coupleof weeks ago. He states this is not a STEMI. Patient received aspirin in the emergency department. He was not given Brilinta or heparin. Dr. Russell said he can give him heparin or Brilinta If Needed Pending images. History & Record Review Discussion w/independent historian: Significant other Additional record(s) reviewed:: No prior records EKG Initial EKG: Attestation: I personally reviewed and interpreted this EKG as follows: Interpretation: Sinus Rhythm (ST elevation 3 aVF with depression in V2 andV3. There is a Q wave in aVF. He has a bundle branch parents noted on the premature beats.) Management Discussion w/another healthcare provider: Hospitalist (Dr. 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 () Critical Care Time Critical Care Time: Yes Critical care time (excluding procedures): 30-74 minutes (10), Including time spent: (History, physical, documentation, interpretation EKG, discussion with hospitalist and correctional counselor), Discussing w/Patient &/or Family/Lab Support Tech, Discussing w/Consultants and Arranging Admission or Transfer Discharge Plan Triage Chief Complaint: Chest Pain ED Provider: David Keene Dx/Rx/DC Orders Clinical Impression: ACS (acute coronary syndrome), Hypertensive urgency Prescriptions: No Action NK Primary Care Provider: Care Physician,No Primary Referrals: Care Physician,No Primary [Primary Care Provider] - Print Language: Malawian Disposition Disposition: [facility] What to do if you have Problems For any increased pain, shortness of breath, bleeding, nausea or vomiting, chestpain, or any unexpected problems, contact your Primary Care Provider. Call [facility] ([phone]) or report tothe closest Emergency Room. Call 911 if necessary. 04/30/25 1334 Cosigner Signature (if applicable): CC: No Primary Care Physician ~ [facility] Jacy [facility] Note Date/Time May 02, 2025 3: 39pm [facility] Medical Records Department [address] [place] [address] Counseling Note - Pharmacy 05/02/25 1538 MR#: [id number] Acct: [id number] Name: ALBERT ANDRADE Andrae Rep #:[id number] : 1960 64 From: Jacy Ying PCP: Care Physician,No Primary Status :ADM IN Y Location: [place] [address] Pharmacy [place] Med Rec Counseling Pharmacy Service has performed discharge medication reconciliation and counseling for this patient. 1. ASPIRIN 81MG PO BREAKFAST 2. ATORVASTATIN 80MG PO QHS 3. CARVEDILOL 3.125MG PO BID 4. CLOPIDOGREL 75MG PO DAILY 5. LISINOPRIL 20MG PO DAILY The patient's discharge medication list was reviewed for discrepancies and discrepancies were resolved. The patient was counseled on the following discharge medications and changes in medications for homegoing were reviewed. The Reason for Use, instructions for use, and potential side effects were reviewed for all new medications. The patient's questions regarding all of their medications were answered. The patient was able to verbally demonstrate an understanding of their dischargemedications. Medications at Discharge Home Medications aspirin 81 mg tablet,delayed release 81 mg PO BREAKFAST #0 tabs 05/02/25 atorvastatin 80 mg tablet 80 mg PO QHS #30 tabs 05/02/25 carvedilol 12.5 mg tablet 12.5 mg PO BIDCM #60 tabs 05/02/25 clopidogrel 75 mg tablet (Plavix) 75 mg PO DAILY #30 tabs 05/02/25 lisinopril 20 mg tablet 20 mg PO DAILY #30 tabs 05/02/25 05/02/25 1539 <Electronically signed by Jacy Ying> Date _ Jacy Ying Cosigner Signature (if applicable): Date CC: ~ Signed [facility] Work Phone: Discharge summary Author David Keene [facility] Note Date/Time April 30, 2025 1: 34pm [facility] Medical Records Department [address] [place] [address] Emergency Department Summary 04/30/25 MR#: [id number] Acct: [id number] Name: ALBERT ANDRADE Rep #:[id number] : 1960 64 From: David Keene MD PCP: Care Physician,No Primary Status :REG ER Location: ED HPI History of Present Illness Chief Complaint: Chest Pain Detail of Chief Complaint: Heartburn/indigestion and shortness of breath Informant: patient Onset/Context/Timing Onset: - (2 to 3 weeks ago with exertion and last evening at rest) Activity at onset: sudden Timing: Continuous Quality: Positive for Burning and Indigestion Location: Substernal Current Severity: Mild Maximum Severity: Moderate Worsened By: Exertion (Worse walking up the incline) Relieved By: Nothing Associated Symptoms: Positive for Dyspnea and Lightheadedness; Negative for Nausea, Vomiting, Diaphoresis, Cough, Fever, Acid Reflux or Palpitations Narrative Narrative: Patient is a 64-year-old male with no past medical history on no medication who presents because of indigestion shortness of breath and pain that radiate through to his back. 2 to 3 weeks ago while moving logs he had heartburn indigestion substernal with difficulty breathing. Symptoms resolved after he stopped. Last evening he had basal crackers. He believes this is the cause of his indigestion. Apparently he is having difficulty with breathing and had difficulty sleeping last evening. He still complain of retrosternal indigestionradiating through to his back. Does not radiate anywhere else. He denies history of hiatal hernia, reflux or peptic ulcer disease. [place] black or maroon-colored stool. He has no history of VTE or any risk factors. He denies headache, visual, ocular auditory symptoms. Recent Illness/Hospitalization: No CVD Risk Factors: Negative for Hypertension, Diabetes, Hypercholesterolemia, Family History 1' </=55 or Smoking PE Risk Factors: Negative for Recent Travel/Surgery, Recent Immobilization, Prior DVT or PE, Cancer or OCP + Smoking + >/=35 TAD Risk Factors: Negative for Marfan's Syndrome, Hypertension or Family History PFSH PFSH Medical History no medical history no medical history Home Medications ?Medication ?Instructions ?Recorded ?Last Taken ?Type NK 04/30/25 Unknown History Allergy/AdvReac Type Severity Reaction Status Date / Time No Known Allergies Allergy Verified 04/30/25 12:51 Family History no significant family his Surgical History no surgical history Social History (Updated 04/30/25 @ 13:[address] David Keene MD) household members: spouse Smoking Status: Never smoker ROS ROS ED Constitutional Constitutional ED: Denies chills, fever(s), subjective or sweats Eyes Eyes: Reports none Cardiovascular Cardiovascular: Reports as per HPI and chest pain; Denies orthopnea or paroxysmal nocturnal dyspnea Respiratory/Chest Respiratory/Chest: Reports dyspnea on exertion; Denies cough, dyspnea, orthopneaor paroxysmal nocturnal dyspnea Gastrointestinal Gastrointestinal: Denies abdominal pain, melena, nausea or vomiting Musculoskeletal Musculoskeletal: Reports back pain; Denies arthralgias or myalgias Integumentary Denies rash Neurologic Neurologic: Denies headache(s) Hematologic/Lymphatic Hematologic/Lymphatic: Denies easy bleeding or easy bruising Allergic/Immunologic Allergic/Immunologic ED: Denies mouth swelling or tongue swelling EXAM Physical Exam Const Vital Signs: 04/30/25 12:50 04/30/25 13:21 Temperature 97 F L Temperature Source Temporal Pulse Rate 88 Respiratory Rate 16 Blood Pressure 214/107 H Blood Pressure Mean 142 Pulse Ox 100 Oxygen Delivery Method Room Air Room Air Positive well nourished and well developed Constitutional Narrative: Blood pressure is elevated 214/107. BMI is elevated at 36.7. General Appearance ED: well developed HEENT Reports moist mucous membranes normocephalic and atraumatic Eyes PERRL and EOMs intact bilaterally General Eye ED: Negative for pale conjunctiva or scleral icterus Neck no lymphadenopathy, supple and no JVD Chest Wall inspection of chest normal and palpation of chest normal Resp normal respiratory effort and clear to auscultation bilaterally Cardio regular rate, S1 normal heart sound, S2 normal heart sound and no murmurs; Negative for regular rhythm Peripheral Pulses: pulses 2+ throughout GI normal to inspection, nondistended, normoactive bowel sounds, soft to palpation,non-tender and non-distended; Negative for hepatosplenomegaly or no masses Back/Spine no CVA tenderness Extremity normal to inspection General Extremety ED: Negative for edema or pulses abnormal General Extremity: Negative for edema or pulses abnormal Neuro oriented x3 and CN's II-XII intact bilaterally Sensorium / Orientation: awake and alert Psych mental status grossly normal Skin no rashes or lesions noted and no wounds MDM MDM MDM Narrative Medical decision making narrative: Twelve-lead EKG reveals bigeminy. He has ST elevation in lead III and aVF and some mild depression in V2 and V3. This is unchanged from 2012. Concerned thismay represent a STEMI. EKG was sent to Dr. Elliott. Since he is still having symptoms he was taken to the [facility]. Concerned he may have had an IL a coupleof weeks ago. He states this is not a STEMI. Patient received aspirin in the emergency department. He was not given Brilinta or heparin. Dr. Russell said he can give him heparin or Brilinta If Needed Pending images. History & Record Review Discussion w/independent historian: Significant other Additional record(s) reviewed:: No prior records EKG Initial EKG: Attestation: I personally reviewed and interpreted this EKG as follows: Interpretation: Sinus Rhythm (ST elevation 3 aVF with depression in V2 andV3. There is a Q wave in aVF. He has a bundle branch parents noted on the premature beats.) Management Discussion w/another healthcare provider: Hospitalist (Dr. 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 () Critical Care Time Critical Care Time: Yes Critical care time (excluding procedures): 30-74 minutes (10), Including time spent: (History, physical, documentation, interpretation EKG, discussion with hospitalist and correctional counselor), Discussing w/Patient &/or Family/Lab Support Tech, Discussing w/Consultants and Arranging Admission or Transfer Discharge Plan Triage Chief Complaint: Chest Pain ED Provider: David Keene Dx/Rx/DC Orders Clinical Impression: ACS (acute coronary syndrome), Hypertensive urgency Prescriptions: No Action NK Primary Care Provider: Care Physician,No Primary Referrals: Care Physician,No Primary [Primary Care Provider] - Print Language: Malawian Disposition Disposition: [facility] What to do if you have Problems For any increased pain, shortness of breath, bleeding, nausea or vomiting, chestpain, or any unexpected problems, contact your Primary Care Provider. Call [facility] ([phone]) or report to the closest Emergency Room. Call 911 if necessary. 04/30/25 0074 <Electronically signed by David Keene MD> Cosigner Signature (if applicable): CC: No Primary Care Physician ~ Signed [facility] Work Phone: Evaluation note* Diagnosis Onset Date Resolution Status Admit Date ACS (acute coronary syndrome) acute April 30, 2025 1:09pm Hypertensive urgency acute Augu st 2024 1:09pm [facility] Work Phone: Evaluation note* Diagnosis Onset Date Resolution Status Admit Date ACS (acute coronary syndrome) acute April 30, 2025 4:21pm Hypertensive urgency acute Augu 2024 4:21pm [facility] Work Phone: Hospital Discharge instructionsAmbulatory Orders* Phase II, Outpatient Cardiac Rehab Location: None Selected [facility] Work Phone: Reason for referral (narrative)No reason for referral information [place] Work Phone: Chief Complaint and Reason for Visit Chief Complaint Admit Date ACS April 30, 2025 1: 09pm Reason for Visit Admit Date ACS (acute coronary syndrome) April 1:09pm Hypertensive urgency April 30, 2025 1 :09pm Chief Complaint Admit Date ACS April 30, 2025 3: 25pm ACS April 30, 2025 4: 21pm Reason for Visit Admit Date ACS (acute coronary syndrome) April 4:21pm Hypertensive urgency April 30, 2025 4 :21pm Chief Complaint Admit Date ACS April 30, 2025 3: 25pm ACS April 30, 2025 4: 21pm ACS May 01, 2025 7: 14am ACS May 01, 2025 12 :58pm ACS May 02, 2025 8: 40am Reason for Visit Admit Date ACS (acute coronary syndrome) April 4:21pm Hypertensive urgency April 30, 2025 4 :21pm Atherosclerotic heart diseas e of [place] coronary artery without angina pectoris April 30, 2025 4:21pm Stented coronary artery April 30 4:21pm Chief Complaint Admit Date ACS April 30, 2025 3: 25pm ACS April 30, 2025 4: 21pm ACS May 01, 2025 7: 14am ACS May 01, 2025 12 :58pm ACS May 02, 2025 8: 40am S/P [facility] 05/02May 09, 2025 9:59am Reason for Visit Admit Date ACS (acute coronary syndrome) April 4:21pm Hypertensive urgency April 30, 2025 4 :21pm Atherosclerotic heart diseas e of [place] coronary artery without angina pectoris April 30, 2025 4:21pm Stented coronary artery April 30 4:21pm Stented coronary artery May 09, 2 025 9:59am Chief Complaint Admit Date ACS April 30, 2025 3: 25pm ACS April 30, 2025 4: 21pm ACS May 01, 2025 7: 14am ACS May 01, 2025 12 :58pm ACS May 02, 2025 8: 40am S/P [facility] 05/02May 09, 2025 9:59am PCI w/stent May 18, 2025 7:55am PCI w/stent June 04, 2025 8:00am Reason for Visit Admit Date Atherosclerotic heart diseas e of [place] coronary artery without angina pectoris April 30, 2025 4:21pm ACS (acute coronary syndrome) April 4:21pm Hypertensive urgency April 30, 2025 4 :21pm Stented coronary artery April 30 4:21pm Stented coronary artery May 09, 025 9:59am Chief Complaint Admit Date ACS April 30, 2025 3: 25pm ACS April 30, 2025 4: 21pm ACS May 01, 2025 7: 14am ACS May 01, 2025 12 :58pm ACS May 02, 2025 8: 40am S/P [facility] 05/02May 09, 2025 9:59am PCI w/stent May 18, 2025 7:55am PCI w/stent June 04, 2025 8:00am PCI w/stent June 06, 2025 7: 59am Advance Directives No Advanced Directives Records Found Advance Directive Response Recorded Date/ Time Do you have a Healthcare Power of Loom Overhauler? No April 30, 2025 1:12pm Advance Directive Response Recorded Date/ Time Do you have a Healthcare Power of Loom Overhauler? No April 30, 2025 3:47pm Advance Directive Response Recorded Date/ Time Do you have a Healthcare Power of Loom Overhauler? No April 30, 2025 3:47pm Advance Directives on File No [facility] 2024 8:05am Living Will No May 18, 2025 8:05am Do you have a Healthcare Power of Loom Overhauler? No May 18, 2025 8:05am Family History No Family History Records Found Relationship Condition Age at Onset Recorded Date/T ugo mother Rheumatoid arthritis Unknown father Myocardial infarction Unknown Cardiac disease 59 Sudden cardiac Unknown sister Malignant neoplasm Unknown brother Coronary artery disease 70 Summary Purpose Additional Source Comments Care Teams (unrecognized sec tion and content) Team Status: Active Member Role/Relationship Status Dates No Primary Care Physician Primary Care Provider Active Team Status: Active Member Role/Relationship Status Dates Dr. David Keene MD Emergency Provider Active Sta rt: April 30, 2025 Dr. Michael Elliott MD Referring Provider Active Start: April 30, 2025 No Primary Care Physician Primary Care Provider Active Start: April 30, 2025 Dr. Anaid Zavala MD Admit Provider Active Star t: April 30, 2025 Dr. Anaid Zavala MD Attending Provider Active Start: April 30, 2025 Team Status: Active Member Role/Relationship Status Dates Dr. David Keene MD Emergency Provider Active Sta rt: April 30, 2025 Dr. Michael Elliott MD Attending Provider Active Start: April 30, 2025 Dr. Michael Elliott MD Referring Provider Active Start: April 30, 2025 No Primary Care Physician Primary Care Provider Active Start: April 30, 2025 Dr. Anaid Zavala MD Admit Provider Active Star t: April 30, 2025 Dr. Anaid Zavala MD Other Provider Active Star t: April 30, 2025 Team Status: Active Member Role/Relationship Status Dates Dr. David Keene MD Emergency Provider Active Sta rt: April 30, 2025 Dr. Michael Elliott MD Referring Provider Active Start: April 30, 2025 Dr. Michael Elliott MD Other Provider Active Star t: April 30, 2025 No Primary Care Physician Primary Care Provider Active Start: April 30, 2025 Dr. Anaid Zavala MD Admit Provider Active Star t: April 30, 2025 Dr. Anaid Zavala MD Attending Provider Active Start: April 30, 2025 Team Status: Inactive Member Role/Relationship Status Dates Dr. David Keene MD Emergency Provider Active Sta rt: April 30, 2025 End: May 02, 2025 Dr. Michael Elliott MD Referring Provider Active Start: April 30, 2025 End: May 02, 2025 Dr. Michael Elliott MD Other Provider Active Star t: April 30, 2025 End: May 02, 2025 No Primary Care Physician Primary Care Provider Active Start: April 30, 2025 End: May 02, 2025 Dr. Anaid Zavala MD Admit Provider Active Star t: April 30, 2025 End: May 02, 2025 Dr. Anaid Zavala MD Other Provider Active Star t: April 30, 2025 End: May 02, 2025 Dr. Deepti Melchor DO Attending Provider Active S tart: April 30, 2025 End: May 02, 2025 Team Status: Active Member Role/Relationship Status Dates Dr. David Keene MD Emergency Provider Active Sta rt: May 01, 2025 Dr. Michael Elliott MD Referring Provider Active Start: May 01, 2025 Dr. Michael Elliott MD Other Provider Active Star t: May 01, 2025 No Primary Care Physician Primary Care Provider Active Start: May 01, 2025 Dr. Anaid Zavala MD Admit Provider Active Star t: May 01, 2025 Dr. Anaid Zavala MD Other Provider Active Star t: May 01, 2025 Dr. Deepti Melchor DO Attending Provider Active S tart: May 01, 2025 Dr. Deepti Melchor DO Other Provider Active Start : May 01, 2025 Team Status: Active Member Role/Relationship Status Dates Dr. David Keene MD Emergency Provider Active Sta rt: May 01, 2025 Dr. Michael Elliott MD Attending Provider Active Start: May 01, 2025 Dr. Michael Elliott MD Referring Provider Active Start: May 01, 2025 Dr. Michael Elliott MD Other Provider Active Star t: May 01, 2025 No Primary Care Physician Primary Care Provider Active Start: May 01, 2025 Dr. Anaid Zavala MD Admit Provider Active Star t: May 01, 2025 Dr. Anaid Zavala MD Other Provider Active Star t: May 01, 2025 Dr. Deepti Melchor DO Other Provider Active Start : May 01, 2025 Team Status: Active Member Role/Relationship Status Dates Dr. David Keene MD Emergency Provider Active Sta rt: May 02, 2025 Dr. Michael Elliott MD Referring Provider Active Start: May 02, 2025 Dr. Michael Elliott MD Other Provider Active Star t: May 02, 2025 No Primary Care Physician Primary Care Provider Active Start: May 02, 2025 Dr. Anaid Zavala MD Admit Provider Active Star t: May 02, 2025 Dr. Anaid Zavala MD Other Provider Active Star t: May 02, 2025 Dr. Deepti Melchor DO Attending Provider Active S tart: May 02, 2025 Dr. Deepti Melchor DO Other Provider Active Start : May 02, 2025 Team Status: Active Member Role/Relationship Status Dates Dr. David Keene MD Emergency Provider Active Sta rt: May 01, 2025 Dr. Michael Elliott MD Other Provider Active Star t: May 01, 2025 No Primary Care Physician Primary Care Provider Active Start: May 01, 2025 Dr. Anaid Zavala MD Admit Provider Active Star t: May 01, 2025 Dr. Anaid Zavala MD Other Provider Active Star t: May 01, 2025 Dr. Deepti Melchor DO Attending Provider Active S tart: May 01, 2025 Dr. Deepti Melchor DO Other Provider Active Start : May 01, 2025 Team Status: Active Member Role/Relationship Status Dates Dr. David Keene MD Emergency Provider Active Sta rt: May 02, 2025 Dr. Michael Elliott MD Other Provider Active Star t: May 02, 2025 No Primary Care Physician Primary Care Provider Active Start: May 02, 2025 Dr. Anaid Zavala MD Admit Provider Active Star t: May 02, 2025 Dr. Anaid Zavala MD Other Provider Active Star t: May 02, 2025 Dr. Deepti Mlechor DO Attending Provider Active S tart: May 02, 2025 Dr. Deepti Melchor DO Other Provider Active Start : May 02, 2025 Team Status: Inactive Member Role/Relationship Status Dates No Primary Care Physician Primary Care Provider Active Start: May 09, 2025 End: May 09, 2025 No Primary Care Physician Referring Provider Active Start: May 09, 2025 End: May 09, 2025 [place] AGRICULTURAL AGENT, AGRICULTURAL AGENT-C Attending Provider Active S tart: May 09, 2025 End: May 09, 2025 Team Status: Active Member Role/Relationship Status Dates Swathi Louis MD Primary care physician Active Team Status: Active Member Role/Relationship Status Dates Dr. David Keene MD Emergency Department Physician Active Start: April 30, 2025 Dr. Michael Elliott MD Attending physician Active Start: April 30, 2025 Dr. Michael Elliott MD Referring Provider Active Start: April 30, 2025 No Primary Care Physician Primary care physician Activ e Start: April 30, 2025 Dr. Anaid Zavala MD Admitting physician Active Start: April 30, 2025 Dr. Anaid Zavala MD Nurse Practitioner Active Start: April 30, 2025 Team Status: Inactive Member Role/Relationship Status Dates Dr. David Keene MD Emergency Department Physician Active Start: April 30, 2025 End: May 02, 2025 Dr. Michael Elliott MD Referring Provider Active Start: April 30, 2025 End: May 02, 2025 Dr. Michael Elliott MD Nurse Practitioner Active Start: April 30, 2025 End: May 02, 2025 No Primary Care Physician Primary care physician Activ e Start: April 30, 2025 End: May 02, 2025 Dr. Anaid Zavala MD Admitting physician Active Start: April 30, 2025 End: May 02, 2025 Dr. Anaid Zavala MD Nurse Practitioner Active Start: April 30, 2025 End: May 02, 2025 Dr. Deepti Melchor DO Attending physician Active Start: April 30, 2025 End: May 02, 2025 Team Status: Active Member Role/Relationship Status Dates Dr. David Keene MD Emergency Department Physician Active Start: May 01, 2025 Dr. Michael Elliott MD Nurse Practitioner Active Start: May 01, 2025 No Primary Care Physician Primary care physician Activ e Start: May 01, 2025 Dr. Anaid Zavala MD Admitting physician Active Start: May 01, 2025 Dr. Anaid Zavala MD Nurse Practitioner Active Start: May 01, 2025 Dr. Deepti Melchor DO Attending physician Active Start: May 01, 2025 Dr. Deepti Melchor DO Nurse Practitioner Active S tart: May 01, 2025 Team Status: Active Member Role/Relationship Status Dates Dr. David Keene MD Emergency Department Physician Active Start: May 01, 2025 Dr. Michael Elliott MD Attending physician Active Start: May 01, 2025 Dr. Michael Elliott MD Referring Provider Active Start: May 01, 2025 Dr. Michael Elliott MD Nurse Practitioner Active Start: May 01, 2025 No Primary Care Physician Primary care physician Activ e Start: May 01, 2025 Dr. Anaid Zavala MD Admitting physician Active Start: May 01, 2025 Dr. Anaid Zavala MD Nurse Practitioner Active Start: May 01, 2025 Dr. Deepti Melchor DO Nurse Practitioner Active S tart: May 01, 2025 Team Status: Active Member Role/Relationship Status Dates Dr. David Keene MD Emergency Department Physician Active Start: May 02, 2025 Dr. Michael Elliott MD Nurse Practitioner Active Start: May 02, 2025 No Primary Care Physician Primary care physician Activ e Start: May 02, 2025 Dr. Anaid Zavala MD Admitting physician Active Start: May 02, 2025 Dr. Anaid Zavala MD Nurse Practitioner Active Start: May 02, 2025 Dr. Deepti Melchor DO Attending physician Active Start: May 02, 2025 Dr. Deepti Melchor DO Nurse Practitioner Active S tart: May 02, 2025 Team Status: Inactive Member Role/Relationship Status Dates No Primary Care Physician Primary care physician Activ e Start: May 09, 2025 End: May 09, 2025 No Primary Care Physician Referring Provider Active Start: May 09, 2025 End: May 09, 2025 [place] AGRICULTURAL AGENT, AGRICULTURAL AGENT-C Attending physician Active Start: May 09, 2025 End: May 09, 2025 Team Status: Inactive Member Role/Relationship Status Dates Dr. Michael Elliott MD Attending physician Active Start: May 18, 2025 End: May 18, 2025 Dr. Michael Elliott MD Referring Provider Active Start: May 18, 2025 End: May 18, 2025 Swathi Louis MD Primary care physician Active S tart: May 18, 2025 End: May 18, 2025 Team Status: Active Member Role/Relationship Status Dates Swathi Louis MD Primary care physician Active S tart: June 04, 2025 Dr. Michael Elliott MD Attending physician Active Start: June 04, 2025 Dr. Michael Elliott MD Referring Provider Active Start: June 04, 2025 Team Status: Inactive Member Role/Relationship Status Dates Swathi Louis MD Primary care physician Active S tart: June 04, 2025 End: June 05, 2025 Dr. Michael Elliott MD Attending physician Active Start: June 04, 2025 End: June 05, 2025 Dr. Michael Elliott MD Referring Provider Active Start: June 04, 2025 End: June 05, 2025 Team Status: Active Member Role/Relationship Status Dates Swathi Louis MD Primary care physician Active S tart: June 06, 2025 Dr. Michael Elliott MD Attending physician Active Start: June 06, 2025 Dr. Michael Elliott MD Referring Provider Active Start: June 06, 2025 Goals (unrecognized section and content) Goals may be documented in a n alternate sectionGoals may be documented in an alternate section (unrecognized sect ion and content) No Status Records Found INFORMATION SOURCE (unrecogn ized section and content) DATE CREATED AUTHOR 07/19/2025 [facility] FOR RECORDS PERTAINING TO PATIENTS WHO ARE OR HAVE BEEN ENROLLED IN A CHEMICAL DEPENDENCY/SUBSTANCEABUSE PROGRAM, SOME INFORMATION MAY BE OMITTED. This clinical summary was aggregated from multiple sources. Caution should be exercised in using it in the provision of clinical care. This summary normalizes information from multiple sources, and as a consequence, information in this document may materially change the coding, format and clinical context of patient data. In addition, data may be omitted in some cases. CLINICAL DECISIONS SHOULD BE BASED ON THE PRIMARY CLINICAL RECORDS. [employer] provides no warranty or guarantee of the accuracy or completeness of information in this document.
--- NOTE | 2025-08-16 12:47 | STRESSREP ---
Stress Test Report Exercise myocardial perfusion stress test. 64-year-old man with a history of CAD. Stress protocol: Resting EKG demonstrates normal sinus rhythm with a rate of 53 bpm resting blood pressure is 128/72 mmHg. The patient exercised according to the regular Surinder protocol for a total duration of 9 minutes attaining a maximum heart rate of 134 bpm which was 85% of maximum predicted heart rate; the maximum workload was 10.1 metabolic equivalents. At rest there were no ST or T wave changes noted to suggest ischemia and at peak exercise upsloping ST changes only were noted which did not meet the criteria for ischemia. No clinical angina was noted the test was terminated due to the target heart rate being achieved/fatigue. The peak blood pressure was 184/82 mmHg. Rate-pressure product was 24,400. Myocardial perfusion protocol. 14.4 mCi of technetium 99m sestamibi was injected at rest. The patient exercised according to regular Surinder protocol for total duration of 9 minutes and at peak exercise 44.8 mCi of technetium 99m sestamibi was injected stress images were obtained stress and rest images were reconstructed in comparing the short axis vertical long and horizontal long axis. Gated images were also obtained. Perfusion SPECT analysis: Review of the stress images demonstrate normal uptake of tracer noted in all areas of the myocardium. The resting images similarly demonstrate normal uptake of tracer noted in all areas of the myocardium. No areas of reversibility are noted to suggest ischemia no previous infarct was noted. Gated SPECT analysis: The gated ejection fraction is 63%. Conclusion: Normal exercise myocardial perfusion stress test at a high workload.
== END | disposition home or self-care (01) ==
LOC: CVS 06:35
PROVIDERS: PCP Family Medicine; Referring Provider Internal Medicine Cardiovascular Disease; Visit Provider Internal Medicine Cardiovascular Disease
DX: I25.10 Atherosclerotic heart disease of native coronary artery without angina pectoris (principal)
CPT/HCPCS: 78452; 93017; A9500; A4216

== ENCOUNTER 2025-08-17 08:00 | Outpatient (RCR) | payer OTHER, SELFPAY ==
[2025-07-12 07:51] VITALS: BMI 34.1
--- NOTE | 2025-08-07 10:15 | PCM.CR.ITP ---
Exercise - Initial Assessment Physician Prescribed Exercise Modalities: Treadmill, Schwinn Airdyne AD-7 and SciFit Stepper Nutrition - Initial Assessment Weight Mgt (Other Care) Height: 5 ft 9 in Weight:: 230 lb 8 oz BMI: 34.0 Psychosocial - Initial Assess Referral to Behavioral Health PS - Interventions: Yes: Attend Stress Management Classes Exercise - 30-day Assessment Physician Prescribed Exercise Modalities: Treadmill, Schwinn Airdyne AD-7 and SciFit Stepper Exercise - 60-day Assessment Physician Prescribed Exercise Modalities: Treadmill, Schwinn Airdyne AD-7 and SciFit Stepper Exercise - 90-day Assessment Visit Date of Eval: 08/07/25 Session #:: 31 Physician Prescribed Exercise Modalities: Treadmill, Schwinn Airdyne AD-7 and SciFit Stepper Frequency: 3x/week for 12 weeks [36 sessions] Intensity: 60-80% of age predicted maximum heart rate reserve Duration: 30 - 45 minutes Current METSs:: 6.4 Target Heart Rate:: 94-125 Current RPE:: 13 Maximum Excercise HR:: 104 Resting Blood Pressure: 128/72 Maximum Exercise Blood Pressure: 148/74 EKG Type: Sinus Rinku-ST with occas PVC, bigemeny Outcomes & Goals Goals:: Verbalizes understanding of THR, RPE & goal METS by session 6, Documents in home exercise log/reports 30 min aerobic 5 day/wk by DC, Demonstrates accurate pulse taking by DC and Other additional outcome/goals: see below Intervention & Plan Exercise Program Goals: Instruct on personal THR & RPE, Instruct on MET level & personal MET goal, Show patient to take own pulse /validate performance until accurate, Instruct on home exercise and Other additional plan/int 30-day Reassessments 30 day Reassessments:: Progressing Reassessment Notes & Comments:: Pt is progressing in his knowledge and exercise plan. He is able to demonstrate proper use of warming up and cooling down. Physical Activity Home Exercise Physical Activity - Home Exercise: Safe Exercise, Warm-up, Self-monitoring, Cool-Down, Home Exercise > 30 min Daily and Sitting Time <3 hours/daily Outcomes & Goals Outcomes/Goals: Demonstrates correct Warm-up/exercise Cool-Down (S3) if = 2.5 METs, Verbalizes symptoms of exercise intolerance by Session 3 (S3), Demonstrate safe equipment use (S3) & follows exercise prescrition (6) and Other: See below Intervention & Plan Plan/Intervention: Instruct warm-up & cool-down if exercising at > 2 METs, Instruct on symptoms of exercise intolerance & actions to take, Instruct & monitor on saf, Assess intial functional capacity & safety risk and Other See below 30-day Reassessments 30 day Reassessments:: Progressing Reassessment Notes & Comments:: Pt is progressing in his exercise knowledge and goals. He utilizes proper warm up and cool down with exercise. Exercise - Final/Discharge Physician Prescribed Exercise Modalities: Treadmill, Schwinn Airdyne AD-7 and SciFit Stepper Nutrition - 30-Day Assessment Weight Mgt (Other Care) Height: 5 ft 9 in Weight:: 230 lb 8 oz BMI: 34.0 Nutrition - 60-Day Assessment Weight Mgt (Other Care) Height: 5 ft 9 in Weight:: 230 lb 8 oz BMI: 34.0 Core - 30-Day Assessment Hypertension [place] [employer] Hypertension Guidelines Reassessment Notes & Comments:: Pt's BP's are within normal AHA limits on most days. Weight loss and low sodium heart healthy diet encouraged. Will continue to monitor and report to pt's physician as needed. Core - Final Assessment Hypertension [place] [employer] Hypertension Guidelines Reassessment Notes & Comments:: Pt's BP's are within normal AHA limits on most days. Weight loss and low sodium heart healthy diet encouraged. Will continue to monitor and report to pt's physician as needed. Core - 90 Day Assessment Medication Compliance Preventative Medication(s):: Aspirin, BRISA inhibitor, Clopidogrel/P2Y12 inhibit, Statin/lipid and Beta juan H/O mental health issues: depression, anxiety, or addiction?: No Doesn?t believe in the benefits of treatment?: No Has a concern about medication side effects?: No Expresses concern over the cost of medications?: No Interventions/plans: Instruct on medication effects & side effects, Review medication list w/patient every two weeks, Instruct importance of taking meds as ordered & assist problem solving and Other additional 30-day Reassessments:: Progressing Reassessment Notes & Comments:: Pt is currently taking meds as prescribed. Will continue to monitor and report to pt's physician as needed. Tobacco Use Tobacco Use: Non-smoker Hypertension Hypertension Diagnosis:: Hypertension ICD-10 I10 Resting Blood Pressure:: 128/72 [place] [employer] Hypertension Guidelines Peak Exercise Blood Pressure:: 148/74 Outcomes/Goals: Able to verbalize/achieve optimal blood pressure <130/80, Incorporates diet changes & exercise for blood pressure control by DC and Other additional outcomes/goals Interventions/plan: Instruct on optimal blood pressure, hypertension & medications, Instruct on effects of sodium, alcohol, stress, exercise &hypertension and Other additional plan/interventions 30 day Reassessments:: Progressing Reassessment Notes & Comments:: Pt's BP's are within normal AHA limits on most days. Weight loss and low sodium heart healthy diet encouraged. Will continue to monitor and report to pt's physician as needed. Tobacco Cessation Referral Education Schedule Given:: Yes Psychosocial - 30-Day Assess Referral to Behavioral Health PS - Interventions: Yes: Attend Stress Management Classes Psychosocial - 60-Day Assess Referral to Behavioral Health PS - Interventions: Yes: Attend Stress Management Classes Psychosocial - 90-Day Assess VIsit Date of Eval: 08/07/25 Session #:: 31 History of previous Mental disease:: No Psychosocial Test Tool Used:: [employer] QOL Cardiac and PHQ-9 Questionnaire phq-9 Severity See PHQ-9 Score: 1 Referral to Behavioral Health PS - Interventions: Yes: Attend Stress Management Classes Outcomes/Goals: See list Psychosocial Outcomes/Goals:: ID's personal stressors & 2 strategies to manage stress by discharge and Other Additional outcome/goals: Intervention/Plan: See List Interventions/Plan:: Assess stressors,coping strategies & signs of derpression on admission, Instruct/assist pt to develop coping & personal stress Mgt strategies, Refer to Behavioral Health if appropriate, Refer to Physician if appropriate, Instruct patient to recognize signs & symptoms of depression, Instruct patient to recog and Other additional plan/intervention 30-day Reassessments: 30 day Reassessments:: Progressing Reassessment Notes & Comments:: Pt denies any psychosocial issues at this time. Pt is to attend stress management class. Will reassess every 30 days. Psychosocial - Final Assessmen Referral to Behavioral Health PS - Interventions: Yes: Attend Stress Management Classes Nutrition - 90-Day Assessment Program Goals Nutrition Program Goals Patient has diagnosis of Hyperlipidemia (ICD E78)?: Yes Visit Date of Eval: 08/07/25 Session #:: 31 (nutrition score of 1) Cholesterol/Lipids (Other Core Measures) Determine presence & major risk factors that modify LDL goal: Cigarette smoking, Hypertension or hypertensive medication, Low HDL cholesterol <40 mg/dL*, Family history of premature CHD in Male < 55 years: female <65 yearsFa and Age men > 45 years; women >/= 55 years Outcomes/Goals: Pt IDs own risk factors & lifestyle modifications by Session 10, Verbalizes symptoms of angina & response by session 3., Pt independently manages and Other Additional Outcomes/Goals: Intervention/Plan: Advocate for lipid panel cholesterol medication if applicable, Instruct on personal lipid levels & lipid goals/NCEP guidelines, Instruct on cholesterol and Other additional plan/int Referral to dietitian:: Yes 30-day Reassessments:: Progressing Reassessment Notes & Comments:: Pt has met one on one with hospital livestock auctioneer and has attend nutrition classes also led by hospital livestock auctioneer Diabetes (Other Core Measures) Diabetes Type: Not Applicable Weight Mgt (Other Care) Height: 5 ft 9 in Weight:: 230 lb 8 oz BMI: 34.0 Diagnosis Overweight/Obesity BMI> 30% ICD-10 E66: Yes Outcomes/Goals: Pt sets, maintains & shows weight loss goal & trend during rehab and Other additional outcomes/goals Intervention/Plan: Instruct on ideal BMI & set weight loss goal w/patient, Assist pt to ID & incorporate diet changes for weight loss by S9, Refer to Structured Weight Loss program as appropriate, Encourage goal of using 250-300dcal per session for weight loss and Other additional plan/interventions 30 day Reassessments:: Progressing Reassessment Notes & Comments:: Pt has met with hospital livestock auctioneer for one on one counseling and has attended nutrition classes led by hospital livestock auctioneer. Heart healthy diet encouraged. Healthy Eating Habits Will attend diet classes:: Yes Outcomes/Goals:: Consume diet rich in vegs,fruits,whole grain/high fiber,fish,lean meat, Limit sat/trans fats,cholesterol & added salts & sugars and Other additional outcome/goals: Intervention/Plan:: Assess current eating habits and Other Additional plan/interventions 30-day Reassessments:: Progressing Reassessment Notes & Comments:: Weight loss and low sodium heart healthy diet encouraged. Will continue to monitor and report to pt's physician as necessary. Education Gave educational materials for:: Signs & symptoms of hypoglycemia, Signs & symptoms of hyperglycemia, Relate diabetes to coronary artery disease and Healthy eating Nutrition - Final Assessment Weight Mgt (Other Care) Height: 5 ft 9 in Weight:: 230 lb 8 oz BMI: 34.0
[2025-08-07 10:23] VITALS: BP 128/72
[2025-08-07 10:31] VITALS: BMI 34.0
[2025-08-07 10:43] VITALS: BP 128/72
== END 2025-09-05 23:59 ==
LOC: CR 08:00
PROVIDERS: PCP Family Medicine; Referring Provider Internal Medicine Interventional Cardiology; Visit Provider Internal Medicine Interventional Cardiology
DX: Z95.5 Presence of coronary angioplasty implant and graft (principal); I16.0 Hypertensive urgency; I24.9 Acute ischemic heart disease, unspecified; I25.10 Atherosclerotic heart disease of native coronary artery without angina pectoris
CPT/HCPCS: 93798